=== PATIENT | male | born 1945 | race Caucasian/White ===

== ENCOUNTER → 2019-04-28 09:38 | Outpatient (BNVA) | payer MEDICARE, OTHER, SELFPAY | PROVIDERS: Family Provider Family Medicine; PCP Family Medicine; Visit Provider Urology | DX: N99.89 Other postprocedural complications and disorders of genitourinary system (principal); N13.8 Other obstructive and reflux uropathy; N40.1 Benign prostatic hyperplasia with lower urinary tract symptoms; N41.1 Chronic prostatitis | CPT/HCPCS: 81001 ==

== ENCOUNTER → 2019-05-23 09:42 | Outpatient (BNVA) | payer MEDICARE, OTHER, SELFPAY | PROVIDERS: Family Provider Family Medicine; PCP Family Medicine; Visit Provider Family Medicine | DX: R68.89 Other general symptoms and signs (principal); J10.1 Influenza due to other identified influenza virus with other respiratory manifestations | CPT/HCPCS: 87804 ==

== ENCOUNTER 2019-06-29 07:11 | Outpatient (CLI) | payer MEDICARE, OTHER, SELFPAY ==
--- NOTE | 2019-06-29 08:37 | NMCV_ITS ---
NM evgeny perf SPECT r/s* [id number] Jaskaran Brown Age: 73 Gender: M : 1945 Exam Date: 06/29/2019 08:44 Ordering Phys: Navid Beach MD Technologist: CHIKI Rowland Exam Location: [facility] Indications: SHORTNESS OF BREATH STRESS TEST Please see separate stress test report in [facility] for full findings IMAGE PROTOCOL Rest/Stress 1 Lexiscan Day Radiopharmaceutical Dose (mCi) Administration Site Administered by Rest: Tc-99m 10.4 IV CHIKI Broussard Sestamibi Stress:Tc-99m 32.4 IV CHIKI Broussard Sestamibi Rest: 29-Jun-2019 60 Discovery 630 Stress: 29-Jun-2019 30 Discovery 630 0.4mg Lexiscan. Supine position only as patient was unable to lay prone. SPECT RESULTS Technical Quality: Good Raw Data Analysis: Normal Image Corrections: No attenuation or motion correction applied Summed Stress Score: 34 Summed Rest Score: 34 Summed Difference Score: 0 PERFUSION FINDINGS A moderate to large area of severely decreased tracer uptake in the basal, mid and apical anterior, basal and mid anteroseptal, basal and mid inferoseptal and all the apical segments. No significant reversibility was noted in these regions. FUNCTIONAL RESULTS (calculated via Gated SPECT) Stress Image LV EF (%): 31 Stress EDV (mL):234 TID: 1.15 Stress ESV (mL):162 FUNCTIONAL FINDINGS: Segmental wall motion analysis revealed severe diffuse hypokinesia of the septum and LV apex. Mild diffuse hypokinesia of the inferior wall. IMPRESSIONS 1. Myocardial perfusion imaging revealing a large area of persistent decreased tracer uptake in the anterior wall, anteroseptal, inferoseptal and apical segments, suggestive of extensive myocardial scarring in the distribution of the left and descending artery with some involvement of the right coronary and circumflex artery. 2. Diminished ejection fraction of 31%. 3. Wall motion normalities as mentioned above. 4. Moderately dilated LV cavity with an end-systolic volume of 162 mL. 5. Slightly elevated transient ischemic dilatation index, may suggest endocardial ischemia. But the positive predictive value this finding is limited. Possibly no significant ischemia, based on the above findings. No similar previous studies are available for comparison Dr Cody Pierce MD FACC (Electronically Signed) Final Date: 29 June 2019 18:44 S
--- NOTE | 2019-06-29 08:37 | ECG_ITS ---
NAME OF STUDY: LEXISCAN SESTAMIBI STRESS TEST INDICATION: Chest Pain, LEXISCAN STRESS TEST ORDERING PHYSICIAN: Baylee CLINICAL INFORMATION: Chest pain previous anterior wall OR INTERPRETATION: 1. The patient was brought to the laboratory where Lexiscan was infused over 20 seconds. The resting blood pressure was 146/95. Maximum blood pressure was 147/84. The resting heart rate was 62 beats per minute. The maximum heart rate is 85 beats per minute. 2. The baseline electrocardiogram reveals sinus rhythm with a left bundle branch block 3. With Lexiscan infusion, there were no ST segment changes to suggest ischemia. 4. The patient experienced no symptoms or arrhythmias during the examination. CONCLUSION: 1. Unremarkable Lexiscan infusion. 2. Nuclear imaging to follow. Electronically Signed On 06-29-2019 19:30:24 CDT by Navid Beach M.D. [id number]
[2019-06-29 08:38] VITALS: BMI 32.8
[2019-06-29 09:25] VITALS: BP 141/87; PULSE 81
[2019-06-29] MEDS: regadenoson 0.4 Mg/5 ml Syringe IVP (09:25)
== END 2019-06-29 07:12 | disposition home or self-care (01) ==
LOC: CDL 07:13
PROVIDERS: Family Provider Family Medicine; PCP Family Medicine; Visit Provider Internal Medicine Cardiovascular Disease
DX: I38 Endocarditis, valve unspecified (principal); R06.02 Shortness of breath
CPT/HCPCS: 78452; 93017; A9500; J2785

== ENCOUNTER 2019-09-29 17:15 | Emergency (ER) | payer MEDICARE, OTHER, SELFPAY ==
[2019-09-29 17:26] VITALS: BP 140/81; PULSE 71; RESP 14; TEMP 36.2; O2SAT 96; BMI 29.9
--- NOTE | 2019-09-29 19:17 | W.ED.SKABFB ---
HPI - Skin/Abscess/Foreign Bdy General: Chief complaint: Skin/Abscess/Foreign Body Stated complaint: fish hook in arm Time Seen by Provider: 09/29/19 19:16 History of Present Illness: HPI narrative: Patient is a 74-year-old male comes to the ED with fishing hook in the left arm. Incident occurred today while patient was fishing. Patient says he needs to be updated on his tetanus shot. Associated symptoms: Deny chills, fever(s), nausea or vomiting Review of Systems Const: Denies: fever(s), chills or fatigue Eyes: Denies: change in vision or eye discomfort ENMT: Denies: throat pain, odynophagia, nasal discharge or nasal congestion Card: Denies: chest pain, palpitations, edema, swelling of feet/ankles, dyspnea on exertion or orthopnea Resp: Denies: dyspnea, productive cough or non-productive cough GI: Denies: abdominal pain, nausea, vomiting, diarrhea, constipation or hematochezia : Denies: flank pain, difficulty urinating, dysuria or hematuria Musc: Denies: neck pain, back pain or extremity swelling Skin/Breast: Reports: other (fish hook in forearm); Denies: rash or new lesions Neuro: Denies: headache(s), numbness in extremities or weakness in extremities PFSH ED PFSH: Medical History BPH with obstruction/lower urinary tract symptoms CAD (coronary artery disease) Chronic neck pain Chronic prostatitis History of [place] (myocardial infarction) Surgical History H/O knee surgery History of hemorrhoidectomy Status post appendectomy Status post coronary angioplasty Family History Father , at age 92-heart trouble No problems noted. Mother , AT AGE 88-[place]IM[place] No problems noted. Social History Smoking and tobacco status: never smoked Alcohol intake: current Alcohol intake frequency: 0-2 Drinks per Day Marital status: Current occupational status: retired Physical Exam Const: COMMON NORMALS: patient oriented x3 HENMT: COMMON NORMALS: normocephalic HEAD & SCALP: normocephalic MOUTH: Normal oral and palatal mucosa present THROAT: posterior oropharynx normal and uvula midline Neck/C-Spine: COMMON NORMALS: supple GENERAL: Yes normal visual inspection Resp: COMMON NORMALS: normal respiratory effort, No retractions, No use of accessory muscles and clear to auscultation bilaterally AUSCULTATION: clear to auscultation bilaterally Cardio: COMMON NORMALS: regular rate, regular rhythm, S1 normal heart sound present, S2 normal heart sound present, No gallops present (Cardio), No clicks present (Cardio), No murmurs present (Cardio) and Peripheral pulses 2+ throughout RATE: regular rate RHYTHM: regular rhythm HEART SOUNDS: S1 normal heart sound present and S2 normal heart sound present PERIPHERAL PULSES: Peripheral pulses 2+ throughout GI: COMMON NORMALS: Normal to inspection, nondistended, normoactive bowel sounds present, Soft to palpation, non-tender and no masses PALPATION: Yes Soft to palpation : COMMON NORMALS: Yes no CVA tenderness BLADDER/KIDNEY EXAM: Yes no CVA tenderness Back/Pelvis: COMMON NORMALS: no CVA tenderness Extremity: NARRATIVE EXTREMITY EXAM: [place] visualized in left forearm. Neuro: COMMON NORMALS: patient oriented x3 and moves all extremities Skin: TRAUMA: other (Visible fishhook in left forearm.) Procedures Foreign Body Removal Time Out Performed: yes Site: left and upper extremity (Forearm) Description of foreign body: fish hook Sedation/Analgesia: other (Area was cleaned with CHG swab. Local lidocaine 1% with epi) Technique: manual removal and removal with forceps Confirmed by:: direct visualization Complications: none Post-procedure exam: awake, alert Neurovascular: no change from pre-procedure (Area was cleaned with alcohol swab and Band-Aid applied.) Course Vital Signs: Vital signs: Vital Signs Temperature 97.1 F L 09/29/19 17:26 Pulse Rate 71 09/29/19 19:52 Respiratory Rate 16 09/29/19 19:52 Blood Pressure 140/81 09/29/19 17:26 Pulse Oximetry 96 09/29/19 19:52 MDM - Skin/Abscess/Foreign Bdy MDM Narrative: Medical decision making narrative: Patient 74-year-old male comes the ED with a visible fishhook in skin of left forearm. Local lidocaine with epi was injected to help manage pain. I then was able to remove the fishhook using pliers and forceps. Area was cleaned with alcohol swab and Band-Aid was placed. Patient was given an updated tetanus dose while here in the ED. He was discharged given a prescription for Keflex. He was told to follow-up with his PCP in 7 to 10 days for reevaluation. Patient understood and agreed with plan. Discharge Plan Discharge Patient Disposition: Home, Self-Care Clinical Impression: Fish hook in forearm Condition: Stable Prescriptions: New Keflex 500 mg capsule 500 mg PO Q12H 4 Days Qty: 8 RF: 0 No Action cefuroxime axetil 500 mg tablet 500 mg PO BID Qty: 60 RF: 3 carvedilol 3.125 mg tablet 3.125 mg PO BID RF: 0 aspirin [Adult Aspirin Regimen] 81 mg tablet,delayed release (DR/EC) 81 mg PO DAILY RF: 0 Hood Back and Body 500-32.5 mg tablet PO RF: 0 nitroglycerin [Nitrostat] 0.4 mg tablet, sublingual 0.4 mg SUBLINGUAL Q5M PRNRF: 0 Unisom (doxylamine) 25 mg tablet 25 mg PO DAILY RF: 0 clopidogrel 75 mg tablet 75 mg PO DAILY 90 Days Qty: 90 RF: 3 lansoprazole 30 mg capsule,delayed release(DR/EC) 30 mg PO DAILY Qty: 90 RF: 1 Discharge Orders: Discharge Order (Routine); Ordered 09/29/19 Ordered By: Efrain Carlisle Referrals: Renate Trevizo DO [Primary Care Provider] - Discharge Diet: Regular Discharge Activity: Resume usual activity Activity Restrictions/Additional Instructions: Schedule follow-up appointment with your PCP in 7 to 10 days for reevaluation. Take full course of antibiotics as prescribed. You can apply cold pack on forearm and take ibuprofen or Tylenol for pain. Watch for signs of infection such as redness, warmth and puslike drainage. If you notice any other signs of infection go to your PCP, urgent care or ED for reevaluation. Discharge Date/Time: 09/29/19 19:53 Coding Level of Care Code ED Chief Technician X Ray for [facility]ra Exam Comprehensive
[2019-09-29] MEDS: tetanus-dipt-pertussis 0.5 mL SDV IM (19:24)
[2019-09-29 19:52] VITALS: PULSE 71; RESP 16; O2SAT 96
== END 2019-09-29 19:53 | disposition home or self-care (01) ==
PROVIDERS: Emergency Provider Physician Assistant; PCP Family Medicine
DX: S51.842A Puncture wound with foreign body of left forearm, initial encounter (principal); W26.8XXA Contact with other sharp object(s), not elsewhere classified, initial encounter; I25.10 Atherosclerotic heart disease of native coronary artery without angina pectoris; I25.2 Old myocardial infarction; Z98.61 Coronary angioplasty status; Z23 Encounter for immunization
CPT/HCPCS: 12345; 90471; 90715; 99281; 99283; J2001

== ENCOUNTER → 2019-10-28 11:50 | Outpatient (BNVA) | payer MEDICARE, OTHER, SELFPAY | PROVIDERS: PCP Family Medicine; Visit Provider Nurse Practitioner Family | DX: N13.8 Other obstructive and reflux uropathy (principal); N40.1 Benign prostatic hyperplasia with lower urinary tract symptoms; N41.1 Chronic prostatitis | CPT/HCPCS: 80053; 81001 ==

== ENCOUNTER → 2019-11-21 09:38 | Outpatient (BNVA) | payer MEDICARE, OTHER, SELFPAY | PROVIDERS: PCP Family Medicine; Visit Provider Family Medicine | DX: I25.10 Atherosclerotic heart disease of native coronary artery without angina pectoris (principal); R10.32 Left lower quadrant pain | CPT/HCPCS: 80053; 80061; 82043; 85025 ==

== ENCOUNTER → 2019-11-22 16:42 | Outpatient (BNVA) | payer MEDICARE, OTHER, SELFPAY | PROVIDERS: PCP Family Medicine; Visit Provider Family Medicine | DX: I25.10 Atherosclerotic heart disease of native coronary artery without angina pectoris (principal); R10.32 Left lower quadrant pain; R73.01 Impaired fasting glucose; R73.09 Other abnormal glucose | CPT/HCPCS: 83036 ==

== ENCOUNTER 2019-11-29 12:52 | Outpatient (CLI) | payer MEDICARE, OTHER, SELFPAY ==
[2019-11-29] MEDS: iohexol 300 mg/mL 50 mL Btl PO (14:24)
--- NOTE | 2019-11-29 14:30 | CT_ITS ---
WS: [id number] CT ABDOMEN AND PELVIS WITH CONTRAST HISTORY: LLQ pain TECHNIQUE: Imaging performed of the abdomen and pelvis with IV contrast. Single phase imaging of the abdomen. Coronal and sagittal reformats are submitted. All CT scans at [facility] use at least one of these dose optimization techniques: automated exposure control; mA and/or kV adjustment per patient size (includes targeted exams where dose is matched to clinical indication); or iterativ e reconstruction. IV CONTRAST: Omnipaque 300; 95 mL IV. Oral contrast: Yes. DLP: 1263.25 mGycm COMPARISON: None available. Lower thorax: 3 mm nodule at the RIGHT lung base. Heart is normal size. No hiatal hernia. Liver/biliary system: Normal size with no intrahepatic dilatation. Gallbladder: Normal. No gallstones or wall thickening. No pericholecystic fluid. Pancreas: Normal. Spleen: Normal. Adrenal glands: Normal. Right kidney: Normal size kidney. Exophytic cyst measures 3.4 cm from the interpolar kidney. Smaller cyst from the lower pole. No obstruction or solid mass. Left kidney: Multiple cysts. The largest measures 2.7 cm from the lower pole. No solid mass or obstru ction. Aorta: Mild atherosclerosis with no aneurysm. Lymphadenopathy: None. Free fluid: None. GI tract: Prior appendectomy. There is moderate fecal retention throughout nearly the entire colon. N umerous diverticula beginning in the descending and sigmoid colon. Mild pericolonic inflammation begi nning in the distal descending and sigmoid colon consistent with acute diverticulitis. There are nume alanna surrounding diverticula. There is also additional wall thickening through the sigmoid from prior chronic episodes of diverticulosis. Abdominal wall: Small fat-containing umbilical hernia. Pelvis: Inguinal canals are patent bilaterally and contain fat only. Bones: No osteoblastic or osteolytic bone disease. CT/CT abdomen pelvis w con* [id number] IMPRESSION: 1. Mild acute diverticulosis involving the distal descending and sigmoid colon over a short segment. No abscess. 2. Numerous diverticula in the sigmoid region. 3. Bilateral renal cysts. 4. Prior appendectomy. 5. Moderate constipation.
== END 2019-11-29 12:53 | disposition home or self-care (01) ==
LOC: RADWPI 12:57
PROVIDERS: PCP Family Medicine; Visit Provider Family Medicine
DX: R10.32 Left lower quadrant pain (principal); K57.30 Diverticulosis of large intestine without perforation or abscess without bleeding; N28.1 Cyst of kidney, acquired; K59.00 Constipation, unspecified
CPT/HCPCS: 74177; Q9967

== ENCOUNTER 2019-12-24 11:01 | Emergency (ER) | payer MEDICARE, OTHER, SELFPAY ==
[2019-12-24 11:22] VITALS: BP 137/73; PULSE 66; RESP 18; TEMP 37.1; O2SAT 98; BMI 29.3
--- NOTE | 2019-12-24 11:43 | ECG_ITS ---
[facility] Test Date: 2019-12-24 Pat Name: Jaskaran Brown Department: Room: Gender: Male Entry Tech: : 1945 Requested By: Estella Marie I Order Number: [id number] Lauren MD: Leandra Claire M.D. Measurements Intervals [place] Rate: 55 P: 25 MN: 221 QRS: -15 QRSD: 152 T: 148 QT: 471 QTc: 452 Interpretive Statements SINUS BRADYCARDIA WITH FIRST DEGREE AV BLOCK LEFT BUNDLE BRANCH BLOCK [120+ ms QRS DURATION, 80+ ms Q/S IN V1/V2, 85+ ms R IN I/aVL/V5/V6] Compared to ECG 05/10/2016 10:31:19 Left bundle-branch block now present Myocardial infarct finding no longer present Electronically Signed On 12-24-2019 13:12:14 CDT by Leandra Claire M.D. [id number] f
--- NOTE | 2019-12-24 11:43 | XRR_ITS ---
PROCEDURE INFORMATION: Exam: XR Chest, 1 View Exam date and time: 12/24/2019 12:12 PM Age: 74 years old Clinical indication: Chest pain TECHNIQUE: Imaging protocol: XR of the chest Views: 1 view. COMPARISON: CR Chest 2 views* [id number] 05/09/2016 11:38 AM FINDINGS: Lungs: Unremarkable. No consolidation. Pleural space: Unremarkable. No pleural effusion. No pneumothorax. Heart/Mediastinum: Unremarkable. No cardiomegaly. Bones/joints: No acute findings. XR/XR chest 1V portable [id number] IMPRESSION: No acute findings.
--- NOTE | 2019-12-24 11:44 | W.ED.CHESTPA ---
HPI - Chest Pain General: Chief Complaint: Chest Pain Stated Complaint: CP/BOTH ARM PAIN Time Seen by Provider: 12/24/19 11:29 Source: patient Mode of arrival: ambulatory History of Present Illness: MD complaint: chest pain Pertinent past history: coronary artery disease and prior HI Onset (ago): hour(s) (22) Timing of current episode: constant Prior episodes: Yes Onset: during rest Pain location: left chest Pain radiation: right arm and left arm Severity: moderate Quality: dull Relieving factors: nothing Exacerbating factors: nothing Associated symptoms: Reports other (dizziness); Deny abdominal pain, diaphoresis, dyspnea, fever(s), leg edema, nausea, palpitations, sense of impending doom, syncope or vomiting Review of Systems General: Reports: 10 or more systems reviewed and unremarkable except in HPI and below Const: Denies: fever(s) or diaphoresis Eyes: Denies: change in vision or blurry vision ENMT: Denies: throat pain, enlarged tonsils, odynophagia, hoarseness, mouth pain or swelling of lips/tongue Card: Denies: palpitations or syncope Resp: Denies: dyspnea GI: Denies: abdominal pain, nausea or vomiting : Denies: flank pain, dysuria, urinary frequency, urinary urgency or urinary hesitancy Musc: Denies: neck pain, back pain or extremity swelling Skin/Breast: Denies: rash, pruritus or erythema Neuro: Denies: headache(s), numbness in extremities or weakness in extremities Endo: Denies: polyuria, polydipsia or tired all the time PFSH ED PFSH: Medical History BPH with obstruction/lower urinary tract symptoms CAD (coronary artery disease) Chronic neck pain Chronic prostatitis History of [place] (myocardial infarction) Surgical History H/O circumcision H/O colonoscopy 5 yrs ago H/O knee surgery History of hemorrhoidectomy Status post appendectomy Status post coronary angioplasty Family History Father , at age 92-heart trouble No problems noted. Mother , AT AGE 88-[place]IM[place] No problems noted. Other CAD (coronary artery disease) Cancer Diabetes Hypertension Denies family history of Anesthesia complication Bleeding disorder Social History Smoking and tobacco status: never smoked Alcohol intake: never Household members: spouse Marital status: Current occupational status: retired History of recent travel: No Physical Exam Const: COMMON NORMALS: no acute distress, average body habitus, patient oriented x3, no limitations, healthy appearing, alert and well nourished HENMT: COMMON NORMALS: normocephalic, atraumatic and moist oral mucous membranes HEAD & SCALP: normocephalic and atraumatic Neck/C-Spine: COMMON NORMALS: no meningeal signs and no JVD Chest: COMMONS NORMALS: normal inspection of the chest and normal palpation of entire chest wall Resp: COMMON NORMALS: normal respiratory effort, No retractions, No use of accessory muscles, clear to auscultation bilaterally and percussion normal AUSCULTATION: clear to auscultation bilaterally PERCUSSION: percussion normal Cardio: COMMON NORMALS: no JVD, regular rate, regular rhythm, S1 normal heart sound present, S2 normal heart sound present, No gallops present (Cardio), No clicks present (Cardio), No murmurs present (Cardio), No rub (Cardio) and Peripheral pulses 2+ throughout RATE: regular rate RHYTHM: regular rhythm HEART SOUNDS: S1 normal heart sound present and S2 normal heart sound present PERIPHERAL PULSES: Peripheral pulses 2+ throughout GI: COMMON NORMALS: Normal to inspection, nondistended, normoactive bowel sounds present, Soft to palpation, non-tender, No hepatosplenomegaly present, no masses and no bruits PALPATION: Yes Soft to palpation and Yes No hepatosplenomegaly present Extremity: COMMON NORMALS: normal to inspection, full ROM, capillary refill normal, no calf tenderness and no pedal edema Neuro: COMMON NORMALS: patient oriented x3 SENSORIUM/ORIENTATION: Yes alert MENINGEAL SIGNS: Yes no meningeal signs Skin: COMMON NORMALS: no rashes or lesions noted, no wounds, turgor normal, no jaundice, no petechiae and no mottling GENERAL SKIN EXAM: no rashes or lesions noted and turgor normal Course Reevaluation(s): Reevaluation #1: Discussed his lab and imaging findings with him. Negative for acute findings. We will discharge him home. Troponin negative, and since his symptoms have been on for almost 24 hours it is unlikely to be ACS. He voiced understanding and is in agreement with the plan. Time: 13:56 Vital Signs: Vital signs: Vital Signs Temperature 98.9 F 12/24/19 14:08 Pulse Rate 56 L 12/24/19 14:08 Respiratory Rate 18 12/24/19 14:08 Blood Pressure 138/77 12/24/19 14:08 Pulse Oximetry 94 12/24/19 14:08 MDM - Chest Pain MDM Narrative: Medical decision making narrative: Patient with chest pain that is unlikely to be ACS. Troponin negative. We will discharge him to follow-up with his primary care provider Medical Records: Attestation: I reviewed the patient's medical records. Lab Data: Attestation: I reviewed the patient's lab results. Labs: Lab Results 12/24/19 12/24/19 12/24/19 Range/Units 11:54 11:54 11:54 WBC 5.2 (4.0-10.0) 10^3/ uL RBC 4.95 (4.1-5.3) 10^6/u L Hgb 15.1 (11.7-16.6) g/dL Hct 46.2 (42.0-52.0) % MCV 93.3 (80-94) fL MCH 30.5 (28.0-34.0) pg MCHC 32.7 (30.0-36.0) g/dL RDW 13.1 (12.1-15.1) % Plt Count 152 (130-400) 10^3/c mm MPV 11.2 H (7.4-10.4) fL Neut % (Auto) 42.4 % Lymph % (Auto) 44.4 % [place] % (Auto) 8.7 % Eos % (Auto) 3.1 % Baso % (Auto) 0.8 % Neut # (Auto) 2.19 (1.8-7.7) 10^3/u L Lymph # (Auto) 2.3 (0.8-4.8) 10^3/u L [place] # (Auto) 0.5 (0.2-0.9) 10^3/u L Eos # (Auto) 0.2 (0.0-0.8) 10^3/u L Baso # (Auto) 0.0 (0.0-0.1) 10^3/u L Nucleated RBC % (a uto) 0 % Nucleated RBCs # 0.0 /100WBC Sodium 138 (136-145) mmol/L Potassium 4.2 (3.5-5.1) mmol/L Chloride 104 (98-107) mmol/L Carbon Dioxide 24 (22-29) mmol/L Anion Gap 14.2 (5-19) BUN 17 (8-23) mg/dL Creatinine 1.0 (0.7-1.2) mg/dL GFR Calculation Not Reportable Glucose 141 H (65-115) mg/dL Calculated Osmolal ity 285 (285-295) mOsm/k g Calcium 8.4 L (8.5-10.5) mg/dL Total Bilirubin 0.3 (0.15-1.2) mg/dL AST 12 (0-40) U/L ALT 19 (0-41) U/L Alkaline Phosphata se 75 (40-130) IU/L Creatine Kinase 63 (39-308) U/L Troponin T Baselin e 13 (0-15) ng/L NT-Pro-B Natriuret Pep 401 H (0-125) pg/mL Total Protein 7.0 (6.6-8.7) g/dL Albumin 3.9 (3.5-5.2) g/dL Globulin 3.1 (1.3-4.6) g/dL Lipase 13 (13-60) U/L Imaging Data^: CXR: Radiologist's impression: [address] [address] XRay Report Signed Patient: Jaskaran Brown #: [id number] : 6Acct#:[id number] Age/Sex: 74 / MADM Date: 12/24/19 Loc: ERRoom/Bed: Attending Dr: Ordering Provider/Ordering MD: Estella Marie MD, [facility] Date of Service: 12/24/19 Procedure(s): XR chest 1V portable [id number] Accession Number(s): [id number] Report Number: [id number] PROCEDURE INFORMATION: Exam: XR Chest, 1 View Exam date and time: 12/24/2019 12:12 PM Age: 74 years old Clinical indication: Chest pain TECHNIQUE: Imaging protocol: XR of the chest Views: 1 view. COMPARISON: CR Chest 2 views* [id number] 05/09/2016 11:38 AM FINDINGS: Lungs: Unremarkable. No consolidation. Pleural space: Unremarkable. No pleural effusion. No pneumothorax. Heart/Mediastinum: Unremarkable. No cardiomegaly. Bones/joints: No acute findings. XR/XR chest 1V portable [id number] IMPRESSION: No acute findings. Dictated By:Geraldo Johnson MD Signed By:Geraldo Johnson MDSigned Date/Time:12/24/19 125 DD/ 125 EKG Data^: EKG 1: Attestation: I personally reviewed and interpreted this EKG as follows: EKG interpretation date: 12/24/19 EKG interpretation time: 11:33 Prior EKG tracings: not available for review Interpretation: Sinus bradycardia with first-degree heart block. Heart rate 55 bpm. Left bundle branch block. Discharge Plan Discharge Patient Disposition: Home Clinical Impression: Atypical chest pain Condition: Stable Prescriptions: Continued carvedilol 3.125 mg tablet 3.125 mg PO BID RF: 0 aspirin [Adult Aspirin Regimen] 81 mg tablet,delayed release (DR/EC) 81 mg PO DAILY RF: 0 nitroglycerin [Nitrostat] 0.4 mg tablet, sublingual 0.4 mg SUBLINGUAL Q5M PRN (Reason: Chest Pain) RF: 0 Unisom (doxylamine) 25 mg tablet 25 mg PO DAILY RF: 0 clopidogrel 75 mg tablet 75 mg PO DAILY 90 Days Qty: 90 RF: 3 lansoprazole 30 mg capsule,delayed release(DR/EC) 30 mg PO DAILY Qty: 90 RF: 1 metformin 500 mg tablet extended release 24 hr 500 mg PO DAILY Qty: 30 RF: 1 Discharge Orders: Discharge Order (Routine); Ordered 12/24/19 Ordered By: Estella Marie Referrals: Renate Trevizo DO [Primary Care Provider] - 1-3 days Patient Instructions: Chest Pain (ED) Activity Restrictions/Additional Instructions: Return for any new or worsening symptoms. Follow-up with your primary care provider within 3 days. Discharge Date/Time: 12/24/19 14:10 Coding Level of Care Code ED [employer] Exam Comprehensive
[2019-12-24] MEDS: nitroglycerin 1 gm/inch oint Pkt 1 INCH TOPICAL (11:48)
[2019-12-24 11:58] VITALS: BP 124/81; PULSE 57; RESP 18; O2SAT 97
[2019-12-24 12:02] VITALS: BP 124/81; PULSE 54; RESP 18; O2SAT 96
[2019-12-24 12:03] LABS: Basophils % 0.8 %; Eosinophils # 0.2 10^3/uL (0.0-0.8); Eosinophils % 3.1 %; Hematocrit 46.2 % (42.0-52.0); Hemoglobin 15.1 g/dL (11.7-16.6); Lymphocytes # 2.3 10^3/uL (0.8-4.8); Lymphocytes % 44.4 %; Mean Corpuscular HGB Conc 32.7 g/dL (30.0-36.0); Mean Corpuscular Hemoglobin 30.5 pg (28.0-34.0); Mean Corpuscular Volume 93.3 fL (80-94); Mean Platelet Volume 11.2 fL (7.4-10.4); Monocytes # 0.5 10^3/uL (0.2-0.9); Monocytes % 8.7 %; Neutrophils # 2.19 10^3/uL (1.8-7.7); Neutrophils % 42.4 %; Nucleated Red Blood Cells % 0 %; Platelet Count 152 10^3/cmm (130-400); Red Blood Count 4.95 10^6/uL (4.1-5.3); Red Cell Distribution Width 13.1 % (12.1-15.1); White Blood Count 5.2 10^3/uL (4.0-10.0)
[2019-12-24 12:20] LABS: Troponin(5th) Baseline 13 ng/L (0-15)
[2019-12-24 12:27] LABS: Alanine Aminotransferase 19 U/L (0-41); Albumin Level 3.9 g/dL (3.5-5.2); Alkaline Phosphatase 75 IU/L (40-130); Anion Gap 14.2 (5-19); Aspartate Amino Transferase 12 U/L (0-40); Blood Urea Nitrogen 17 mg/dL (8-23); Calcium 8.4 mg/dL (8.5-10.5); Carbon Dioxide 24 mmol/L (22-29); Chloride 104 mmol/L (98-107); Creatine Phosphokinase 63 U/L (39-308); Globulin 3.1 g/dL (1.3-4.6); Glucose 141 mg/dL (65-115); Lipase 13 U/L (13-60); NT Pro B Type Natriuretic Pept 401 pg/mL (0-125); Osmolality Calculated 285 mOsm/kg (285-295); Potassium 4.2 mmol/L (3.5-5.1); Sodium 138 mmol/L (136-145); Total Bilirubin 0.3 mg/dL (0.15-1.2)
[2019-12-24 13:35] VITALS: BP 115/72; PULSE 56; RESP 18; O2SAT 94
[2019-12-24 14:08] VITALS: BP 138/77; PULSE 56; RESP 18; TEMP 37.2; O2SAT 94
== END 2019-12-24 14:10 | disposition home or self-care (01) ==
PROVIDERS: Emergency Provider Family Medicine; PCP Family Medicine
DX: R07.89 Other chest pain (principal); Z79.02 Long term (current) use of antithrombotics/antiplatelets; Z79.82 Long term (current) use of aspirin; I25.10 Atherosclerotic heart disease of native coronary artery without angina pectoris; I25.2 Old myocardial infarction; Z98.61 Coronary angioplasty status
CPT/HCPCS: 12345; 71045; 80053; 82550; 83690; 83880; 84484; 85025; 93005; 99283; 99284

== ENCOUNTER → 2020-01-13 13:40 | Outpatient (BNVA) | payer MEDICARE, OTHER, SELFPAY | PROVIDERS: PCP Family Medicine; Visit Provider Surgery | DX: Z20.828 Contact with and (suspected) exposure to other viral communicable diseases (principal) | CPT/HCPCS: 87635 ==

== ENCOUNTER 2020-01-17 06:28 | Day surgery (SDC) | payer MEDICARE, OTHER, SELFPAY ==
[2020-01-13 13:41] VITALS: BMI 29.9
[2020-01-17 06:38] VITALS: BP 133/88; PULSE 75; RESP 18; TEMP 36.1; O2SAT 97
--- NOTE | 2020-01-17 06:47 | P.ANESASSM_ITS ---
Pre-Anesthetic Assessment Pre-Anesthetic Assessment: Height/Weight: Height 1.91 m Weight 108.862 kg Temp Pulse Resp BP Pulse Ox 97 F L 75 18 133/88 97 01/17/20 06:38 01/17/20 06:38 01/17/20 06:38 01/17/20 06:38 01/17/20 06:38 Preop Diagnosis: diverticulitis Proposed Procedure: Operation Date: 01/17/20 07:30 Proposed Procedures p Colonoscopy 07696 R10.32(Not Applicable) - Gilbert Bueno MD Was Beta Nory taken within 24 hours: Yes (last night) Last intake: Intake Last Liquid Date 01/16/20 Last Liquid Time 22:00 Last Solid Date 01/15/20 Last Solid Time 18:00 Social: Social History: No alcohol and No tobacco Exam: Pre-Anes Outpt Exam: alert, oriented x 3, clear to auscultation bilaterally and regular rate & rhythm Airway: Submandibular: WNL Cervical ROM: WNL MP: 1 Dentition: Partials History/ROS: No significant history except as noted Pulmonary: Pulmonary: None reported CV/HEM: CV/HEM: CAD, HTN and [place] Comments: denies and SOB/CP or changes. 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 : : None reported Hepatic: Hepatic: None reported GI: GI: GERD Metabolic: Metabolic: DM, Hyperlipidemia and Morbid obesity Musc/skel: Musc/skel: None reported Neuropsych: Neuropsych: None reported Anesthetic Plan: ASA status: 3 Anesthesia: MAC PFSH Anesthesia PFSH: Medical History (Updated 01/01/20 @ 00:00 by ) BPH with obstruction/lower urinary tract symptoms CAD (coronary artery disease) Chronic neck pain Chronic prostatitis History of [place] (myocardial infarction) Surgical History H/O circumcision H/O colonoscopy 5 yrs ago H/O knee surgery History of hemorrhoidectomy Status post appendectomy Status post coronary angioplasty Family History Father , at age 92-heart trouble No problems noted. Mother , AT AGE 88-[place] No problems noted. Other CAD (coronary artery disease) Cancer Diabetes Hypertension Denies family history of Anesthesia complication Bleeding disorder Social History Smoking and tobacco status: never smoked Alcohol intake: never Household members: spouse Marital status: Current occupational status: retired History of recent travel: No Data Anesthesia Cardiac Studies: No Data to Display
[2020-01-17 06:58] LABS: Glucose Point of Care 124 mg/dL (70-110)
[2020-01-17] MEDS: sodium chloride 0.9% 1,000 ML 30 ML IV (06:58)
--- NOTE | 2020-01-17 06:59 | W.PM.OPSUD ---
Surgery/Procedure H&P Update DATE OF PROCEDURE: January 17, 2020 DATE H&P PERFORMED: 12/23/19 H&P UPDATE INFORMATION: I have reviewed H&P completed within last 30 days, I have examined patient prior to procedure and No changes to prior documentation PREOP DIAGNOSIS: diverticulitis PLANNED PROCEDURE: Operation Date: 01/17/20 07:30 Proposed Procedures p Colonoscopy 55759 R10.32(Not Applicable) - Gilbert Bueno MD
[2020-01-17 07:32] VITALS: BP 114/75; PULSE 67; RESP 16; TEMP 36.4; O2SAT 95
[2020-01-17 07:50] VITALS: BP 103/71; PULSE 66; RESP 18; O2SAT 95
--- NOTE | 2020-01-17 07:58 | ANE.PACU2 ---
Inpatient post-anesthesia follow up: Airway intact: Yes Vital signs: Temperature 97.6 F Pulse Rate 67 Respiratory Rate 16 Blood Pressure 114/75 Pulse Oximetry 95 Oxygen Delivery Me thod Nasal Cannula Oxygen Flow Rate 2 Fraction of Inspir ed Oxygen Hydration adequate: Yes Nausea and vomiting: No Mental status: Baseline
== END 2020-01-17 08:05 | disposition home or self-care (01) ==
PROVIDERS: PCP Family Medicine; Visit Provider Surgery
PROC: 0DJD8ZZ Inspection of Lower Intestinal Tract, Via Natural or Artificial Opening Endoscopic (ICD-10-PCS; CPT 45378; principal; 2020-01-17 07:30)
DX: R10.32 Left lower quadrant pain (principal); D12.4 Benign neoplasm of descending colon; K57.30 Diverticulosis of large intestine without perforation or abscess without bleeding; K57.32 Diverticulitis of large intestine without perforation or abscess without bleeding; I25.10 Atherosclerotic heart disease of native coronary artery without angina pectoris; I10 Essential (primary) hypertension; I25.2 Old myocardial infarction; K21.9 Gastro-esophageal reflux disease without esophagitis; E11.9 Type 2 diabetes mellitus without complications; E78.5 Hyperlipidemia, unspecified; E66.01 Morbid (severe) obesity due to excess calories; Z68.30 Body mass index [BMI] 30.0-30.9, adult; N40.1 Benign prostatic hyperplasia with lower urinary tract symptoms; N13.8 Other obstructive and reflux uropathy; Z79.82 Long term (current) use of aspirin; Z79.84 Long term (current) use of oral hypoglycemic drugs
CPT/HCPCS: 12345; 36416; 45380; 82962; 88305; J2704; J7030

== ENCOUNTER → 2020-10-09 15:54 | Outpatient (BNVA) | payer MEDICARE, OTHER, SELFPAY | PROVIDERS: PCP Family Medicine; Visit Provider Family Medicine | DX: E11.9 Type 2 diabetes mellitus without complications (principal); Z13.6 Encounter for screening for cardiovascular disorders | CPT/HCPCS: 80053; 83036 ==

== ENCOUNTER → 2021-04-29 13:33 | Outpatient (BNVA) | payer MEDICARE, OTHER, SELFPAY | PROVIDERS: PCP Family Medicine; Visit Provider Urology | DX: N40.1 Benign prostatic hyperplasia with lower urinary tract symptoms (principal); N13.8 Other obstructive and reflux uropathy; Z12.5 Encounter for screening for malignant neoplasm of prostate; N41.1 Chronic prostatitis | CPT/HCPCS: 81003; G0103 ==

== ENCOUNTER → 2021-07-01 13:42 | Outpatient (BNVA) | payer MEDICARE, OTHER, SELFPAY | PROVIDERS: PCP Family Medicine; Visit Provider Internal Medicine | DX: I25.10 Atherosclerotic heart disease of native coronary artery without angina pectoris (principal); N41.1 Chronic prostatitis; R06.02 Shortness of breath; R07.9 Chest pain, unspecified; Z98.61 Coronary angioplasty status; I25.2 Old myocardial infarction | CPT/HCPCS: 99214 ==

== ENCOUNTER 2021-07-23 09:41 | Outpatient (CLI) | payer MEDICARE, OTHER, SELFPAY ==
[2021-07-23 09:58] VITALS: BMI 30.8
--- NOTE | 2021-07-23 09:59 | ECG_ITS ---
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 Interpretive Statements NAME OF STUDY: LEXISCAN SESTAMIBI STRESS TEST INDICATION: [Chest Pain, ] Procedure: At the baseline, the blood pressure was 146/91 mmHg with a heart rate of 65 bpm. The electrocardiogram showed normal sinus rhythm, left bundle branch block. The Lexiscan was infused over a period of 20 seconds. A total of 0.4 mg of Lexiscan was infused. The stress phase was continued for a total of 5 minutes. Heart rate was at the end of stress phase was 79 bpm and a blood pressure of 130/87mmHg. The EKG at the peak infusion revealed since normal sinus rhythm with no significant ST-T wave changes. Sestamibi was injected 20 seconds after the Lexiscan infusion. Blood pressure at the end of recovery phase was 132/87 mmHg with a heart rate of 76 bpm. Conclusion: 1. Normal EKG response to Lexiscan infusion 2. No Lexiscan induced chest pain or cardiac arrhythmia. 3. Normal blood pressure and heart rate response. 4. Sestamibi/sestamibi perfusion scan pending; see separate report. Electronically Signed On 07-27-2021 13:23:43 CDT by Kwan Shah M.D. [email or web address] TherapeuticsCafeMombr[facility].[place] [facility]/store/OM/[id number]/[id number]
--- NOTE | 2021-07-23 09:59 | NMCV_ITS ---
NM evgeny perf SPECT r/s* [id number] Jaskaran Brown Age: 75 Gender: M : 1945 Exam Date: 07/23/2021 10:49 Ordering Phys: Kwan Shah M.D ([email or web address]) Technologist: CHIKI Rowland Exam Location: [facility] Indications: SHORTNESS OF BREATH STRESS TEST Please see separate stress test report in [facility] for full findings IMAGE PROTOCOL Rest/Stress 1 Lexiscan Day Radiopharmaceutical Dose (mCi) Administration Site Administered by Rest: Tc-99m 10.8 IV CHIKI Broussard Sestamibi Stress:Tc-99m 32.4 IV CHIKI Rowland Sestamitanya Rest: 23-Jul-2021 60 Discovery 630 Stress: 23-Jul-2021 30 Discovery 630 0.4mg Lexiscan. Supine position only as patient was unable to lay prone. SPECT RESULTS Technical Quality: Excellent Raw Data Analysis: Normal Image Corrections: No attenuation or motion correction applied Summed Stress Score: 35 Summed Rest Score: 31 Summed Difference Score: 5 PERFUSION FINDINGS There is a large sized mostly fixed perfusion defect in the apical, anterior and anteroseptal gil with small area of reversibilty in the anterior wall. This is consistent with large sized infarct in these territories with small to medium sized area of teresa-infarct ischemia FUNCTIONAL RESULTS (calculated via Gated SPECT) Stress Image LV EF (%): 25 Stress EDV (mL):253 TID: 1.26 Stress ESV (mL):190 FUNCTIONAL FINDINGS: LV systolic function is severely reduced with EF of 25%. Elevated TID ratio of 1.26 IMPRESSIONS 1. Abnormal mycaordial perfusion imaging with large sized infarct noted in the apical, anterior and anteroseptal gil with small to medium sized area of teresa-infarct ischemia 2. LV systolic function is severely reduced. TID ratio is elevated and is 1.26. This could represent subendocardial ischemia or multivessel coronary artery disease Kwna Shah MD (Electronically Signed) Final Date: 31 July 2021 10:35 S
[2021-07-23] MEDS: regadenoson 0.4 Mg/5 ml Syringe IVP (11:18)
[2021-07-23 11:28] VITALS: BP 132/86; PULSE 76
== END 2021-07-23 09:42 | disposition home or self-care (01) ==
LOC: RAD 09:43 → CDL 09:48
PROVIDERS: PCP Family Medicine; Visit Provider Internal Medicine
DX: R07.9 Chest pain, unspecified (principal); R06.02 Shortness of breath
CPT/HCPCS: 78452; 93017; A9500; J2785

== ENCOUNTER → 2021-12-30 14:02 | Outpatient (BNVA) | payer MEDICARE, OTHER, SELFPAY | PROVIDERS: PCP Family Medicine; Visit Provider Internal Medicine | DX: I25.10 Atherosclerotic heart disease of native coronary artery without angina pectoris (principal); Z98.61 Coronary angioplasty status; I25.2 Old myocardial infarction | CPT/HCPCS: 99214 ==

== ENCOUNTER 2022-01-11 09:57 | Emergency (ER) | payer MEDICARE, OTHER, SELFPAY ==
[2022-01-11 10:00] VITALS: BP 165/86; PULSE 77; RESP 16; TEMP 37.1; O2SAT 96; BMI 24.4
--- NOTE | 2022-01-11 10:05 | W.ED.COVID ---
HPI - COVID General: Chief Complaint: COVID symptoms Stated Complaint: covid postive Time Seen by Provider: 01/11/22 09:58 History of Present Illness: 76-year-old male presents emergency room with tested positive for COVID this morning. He was exposed 4 days ago symptoms for the last 3 days. He has minimal symptoms slight cough mild headache and myalgias very mild loose stools no anosmia. He does have a history of diabetes mellitus and heart disease. Tested positive with a home antigen test this morning. MD complaint: known COVID positive Prior covid testing: yes, results known COVID 19 common symptoms: positive fever(s), chills, cough, non-productive cough, dyspnea, fatigue, body aches, headache(s) and nasal congestion; negative productive cough, throat pain, nausea, vomiting or diarrhea COVID 19 other sytmptoms: negative chest pain Onset (ago): day(s) (3) Severity: mild Pertinent comorbid conditions: diabetes and heart disease Treatment prior to arrival: none COVID Results: Nasal/Oral Coronavirus 2019 PCR Negative 01/13/20 13:40 Review of Systems Const: Reports: fever(s), chills, body aches, fatigue and malaise ENMT: Reports: nasal congestion; Denies: throat pain Card: Denies: chest pain, palpitations, irregular heart rhythm, edema, dyspnea on exertion or orthopnea Resp: Reports: dyspnea and non-productive cough; Denies: productive cough or wheezing GI: Denies: abdominal pain, nausea, vomiting, hematemesis, coffee ground emesis, diarrhea, constipation, bloating, hematochezia or melena : Denies: flank pain, dysuria, urinary frequency or urinary urgency Skin/Breast: Denies: rash or pruritus Neuro: Reports: headache(s) PFSH ED PFSH: Medical History BPH with obstruction/lower urinary tract symptoms CAD (coronary artery disease) Chronic neck pain Chronic prostatitis Diverticulitis of sigmoid colon History of colon polyps History of NE (myocardial infarction) Type 2 diabetes mellitus, without long-term current use of insulin Surgical History H/O circumcision H/O colonoscopy (01/17/20) descending colon polyp and sigmoid diverticulitis H/O knee surgery History of hemorrhoidectomy Status post appendectomy Status post coronary angioplasty Family History Father , at age 92-heart trouble No problems noted. Mother , AT AGE 88-ALZHEIMERS No problems noted. Other CAD (coronary artery disease) Cancer Diabetes Hypertension Denies family history of Anesthesia complication Bleeding disorder Social History Smoking and tobacco status: never smoked Alcohol intake: never Household members: spouse Marital status: Current occupational status: retired History of recent travel: No Physical Exam Const: COMMON NORMALS: no acute distress GENERAL APPEARANCE: cooperative and comfortable ORIENTATION/CONSCIOUSNESS: Yes awake, Yes oriented to person, Yes oriented to place and Yes oriented to time HENMT: COMMON NORMALS: normocephalic and atraumatic HEAD & SCALP: normocephalic and atraumatic Eye: COMMON NORMALS: Equal, round and reactive pupils present, EOMs intact bilaterally, conjunctivae normal and no scleral icterus CONJUNCTIVA: Yes conjunctivae normal PUPIL: Yes Equal, round and reactive pupils present Neck/C-Spine: COMMON NORMALS: full ROM, no lymphadenopathy, supple and no JVD Lymph: LYMPHATIC: no lymphadenopathy noted and no lymphedema noted Resp: COMMON NORMALS: normal respiratory effort, No retractions, No use of accessory muscles and clear to auscultation bilaterally AUSCULTATION: clear to auscultation bilaterally Cardio: COMMON NORMALS: no JVD, regular rate, regular rhythm and No murmurs present (Cardio) RATE: regular rate RHYTHM: regular rhythm Extremity: COMMON NORMALS: normal to inspection, capillary refill normal, no clubbing, cyanosis or edema, no calf tenderness and no pedal edema Neuro: SENSORIUM/ORIENTATION: Yes oriented to person, Yes oriented to place and Yes oriented to time Skin: COMMON NORMALS: no rashes or lesions noted GENERAL SKIN EXAM: no rashes or lesions noted Course Vital Signs: Vital signs: Vital Signs Temperature 98.8 F 01/11/22 10:00 Pulse Rate 77 01/11/22 10:00 Respiratory Rate 16 01/11/22 10:00 Blood Pressure 165/86 01/11/22 10:00 Pulse Oximetry 96 01/11/22 10:00 Oxygen Delivery Me thod 01/11/22 10:00 [facility] - COVID Medical Decision Making Symptomatic cares. Patient was to start Paxlovid. He is within the timeframe. Prescription given monitor breathing if has worsening shortness of breath should be reevaluated. Medical Records I reviewed the patient's medical records. Lab Data I reviewed the patient's lab results. Nasal/Oral Coronavirus 2019 PCR Negative 01/13/20 13:40 Discharge Plan Discharge Patient Disposition: Home Clinical Impression: COVID-19, Type 2 diabetes mellitus, without long-term current use of insulin Condition: Stable Prescriptions: New Paxlovid (EUA) 150 mg x 2- 100 mg tablet See Rx Instructions .ROUTE .COMPLEX Qty: 30 0RF Rx Instructions: orally per package directions No Action levofloxacin 500 mg tablet 500 mg PO DAILY PRN aspirin [Adult Aspirin Regimen] 81 mg tablet,delayed release (DR/EC) 81 mg PO DAILY nitroglycerin [Nitrostat] 0.4 mg tablet, sublingual 0.4 mg SUBLINGUAL Q5M PRN (Reason: Chest Pain) Unisom (doxylamine) 25 mg tablet 25 mg PO DAILY clopidogrel 75 mg tablet 75 mg PO DAILY Qty: 90 3RF carvedilol 3.125 mg tablet 3.125 mg PO BID Qty: 180 3RF lansoprazole 30 mg capsule,delayed release(DR/EC) 30 mg PO DAILY 30 Days Qty: 30 0RF Discharge Orders: Discharge ED (Routine); Ordered 01/11/22 Ordered By: Moiz Abdalla Referrals: Renate Trevizo DO [Primary Care Provider] - Discharge Diet: Usual diet Discharge Activity: Increase activity as tolerated Patient Instructions: COVID-19 (Coronavirus Disease 2019) (ED), Opioid Safety, Pain Management Activity Restrictions/Additional Instructions: Maintain self quarantine until you are fever free and symptoms are improving for at least 24 hours. If breathing worsens you should be reevaluated. 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
== END 2022-01-11 10:10 | disposition home or self-care (01) ==
PROVIDERS: Emergency Provider Family Medicine; PCP Family Medicine
DX: U07.1 COVID-19 (principal); E11.9 Type 2 diabetes mellitus without complications; I25.10 Atherosclerotic heart disease of native coronary artery without angina pectoris; I25.2 Old myocardial infarction; I50.9 Heart failure, unspecified; Z82.49 Family history of ischemic heart disease and other diseases of the circulatory system
CPT/HCPCS: 99283

== ENCOUNTER → 2022-04-17 08:18 | Outpatient (BNVA) | payer MEDICARE, OTHER, SELFPAY | PROVIDERS: PCP Family Medicine; Visit Provider Family Medicine | DX: Z13.6 Encounter for screening for cardiovascular disorders (principal); E11.9 Type 2 diabetes mellitus without complications; K21.9 Gastro-esophageal reflux disease without esophagitis | CPT/HCPCS: 80053; 80061; 83036; 85025 ==

== ENCOUNTER → 2022-07-15 14:13 | Outpatient (BNVA) | payer MEDICARE, OTHER, SELFPAY | PROVIDERS: PCP Family Medicine; Visit Provider Nurse Practitioner Family | DX: I25.10 Atherosclerotic heart disease of native coronary artery without angina pectoris (principal); I25.2 Old myocardial infarction; Z79.82 Long term (current) use of aspirin | CPT/HCPCS: 99213 ==

== ENCOUNTER 2022-11-11 08:54 | Observation (INO) | payer MEDICARE, OTHER, SELFPAY ==
[2022-11-11] VITALS (55 sets, daily range): BP systolic 124–153; BP diastolic 63–86; PULSE 47–67; RESP 3–24; TEMP 36.8; O2SAT 92–97; BMI 30.6
--- NOTE | 2022-11-11 09:15 | XRR_ITS ---
PROCEDURE INFORMATION: Exam: XR Chest Exam date and time: 11/11/2022 9:35 AM Age: 77 years old Clinical indication: Pain; Angina pectoris; Prior surgery; Surgery date: 6+ months; Surgery type: Stent; Additional info: Cp TECHNIQUE: Imaging protocol: Radiologic exam of the chest. Views: 1 view. COMPARISON: CR XR chest 1V portable [id number] 12/24/2019 12:02 PM FINDINGS: Lungs: Unremarkable. No consolidation. Pleural spaces: Unremarkable. No pleural effusion. No pneumothorax. Heart/Mediastinum: Unremarkable. No cardiomegaly. Bones/joints: Unremarkable. XR/XR chest 1V portable [id number] IMPRESSION: No acute findings.
--- NOTE | 2022-11-11 09:15 | ECG_ITS ---
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 Measurements Intervals Burden Rate: 58 P: 43 LA: 233 QRS: 18 QRSD: 161 T: 152 QT: 467 QTc: 461 Interpretive Statements SINUS BRADYCARDIA WITH FIRST DEGREE AV BLOCK LEFT BUNDLE BRANCH BLOCK [120+ ms QRS DURATION, 80+ ms Q/S IN V1/V2, 85+ ms R IN I/aVL/V5/V6] Compared to ECG 12/24/2019 11:33:20 No significant changes Electronically Signed On 11-11-2022 14:36:58 CDT by Kwan Shah M.D. [id number]
[2022-11-11 09:33] LABS: Basophils # 0.1 10^3/uL (0.0-0.1); Basophils % 0.8 %; Eosinophils # 0.2 10^3/uL (0.0-0.8); Eosinophils % 3.5 %; Hematocrit 46.7 % (42.0-52.0); Hemoglobin 15.8 g/dL (11.7-16.6); Lymphocytes # 2.5 10^3/uL (0.8-4.8); Lymphocytes % 39.7 %; Mean Corpuscular HGB Conc 33.8 g/dL (30.0-36.0); Mean Corpuscular Hemoglobin 30.9 pg (28.0-34.0); Mean Corpuscular Volume 91.4 fl (80-94); Monocytes # 0.5 10^3/uL (0.2-0.9); Monocytes % 8.5 %; Neutrophils # 2.92 10^3/uL (1.8-7.7); Nucleated Red Blood Cells % 0 %; Platelet Count 148 10^3/cmm (130-400); Red Blood Count 5.11 10^6/uL (4.1-5.3); Red Cell Distribution Width 12.3 % (12.1-15.1); White Blood Count 6.2 10^3/uL (4.0-10.0)
[2022-11-11 09:57] LABS: Troponin(5th) Baseline 14 ng/L (0-15)
[2022-11-11 10:04] LABS: Alanine Aminotransferase 22 U/L (0-41); Albumin Level 3.9 g/dL (3.5-5.2); Alkaline Phosphatase 67 U/L (40-130); Anion Gap 14.2 (5-19); Aspartate Amino Transferase 15 U/L (0-40); Blood Urea Nitrogen 16 mg/dL (8-23); Calcium 8.1 mg/dL (8.5-10.5); Carbon Dioxide 23 mmol/L (22-29); Chloride 102 mmol/L (98-107); Globulin 2.6 g/dL (1.3-4.6); Glucose 189 mg/dL (65-115); NT Pro B Type Natriuretic Pept 265 pg/mL (0-450); Osmolality Calculated 286 mOsm/kg (285-295); Potassium 4.2 mmol/L (3.5-5.1); Sodium 135 mmol/L (136-145); Total Bilirubin 0.4 mg/dL (0.15-1.2); Total Protein 6.5 g/dL (6.6-8.7)
--- NOTE | 2022-11-11 11:35 | ECG_ITS ---
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 Measurements Intervals [place] Rate: 53 P: 33 MD: 224 QRS: 21 QRSD: 158 T: 199 QT: 494 QTc: 466 Interpretive Statements SINUS BRADYCARDIA WITH FIRST DEGREE AV BLOCK INTRAVENTRICULAR CONDUCTION DELAY [130+ ms QRS DURATION] Compared to ECG 11/11/2022 09:11:26 Intraventricular conduction delay now present Left bundle-branch block no longer present Electronically Signed On 11-11-2022 17:39:28 CDT by Kwan Shah M.D. [id number]
--- NOTE | 2022-11-11 11:48 | W.ED.CHESTPA ---
HPI - Chest Pain General: Chief Complaint: Chest Pain Stated Complaint: chest pain for three days, pressure down arms Time Seen by Provider: 11/11/22 09:15 Source: patient Mode of arrival: ambulatory History of Present Illness: 77-year-old male presents emergency room complaining of chest pain intermittently for 3 days he has noticed anything exacerbates it really. He has mild substernal chest pain radiating to his arms. He has not really take anything for it. He is not having any chest pain at this time. He has a known history of coronary disease with previous stenting. He states these episodes are associated with severe fatigue and on 1 time at 1 occasion shortness of breath no diaphoresis. MD complaint: chest pain Pertinent past history: coronary artery disease Onset (ago): day(s) (3) Timing of current episode: episodic Prior episodes: Yes Onset: during rest Pain location: substernal and left chest Pain radiation: right arm and left arm Severity: mild Quality: aching and heaviness Relieving factors: nothing Exacerbating factors: nothing Associated symptoms: Deny abdominal pain, diaphoresis, dyspnea, fever(s), leg edema, nausea, palpitations, sense of impending doom, syncope or vomiting Review of Systems Const: Reports: fatigue; Denies: fever(s), chills or diaphoresis ENMT: Denies: throat pain, ear or mastoid pain, nasal discharge or nasal congestion Card: Reports: chest pain; Denies: palpitations, irregular heart rhythm, edema, syncope, dyspnea on exertion or orthopnea Resp: Denies: dyspnea, productive cough, non-productive cough or wheezing GI: Denies: abdominal pain, nausea or vomiting : Denies: flank pain, dysuria, urinary frequency or urinary urgency Skin/Breast: Denies: rash or pruritus PFSH ED PFSH: Medical History BPH with obstruction/lower urinary tract symptoms CAD (coronary artery disease) Chronic neck pain Chronic prostatitis Diverticulitis of sigmoid colon History of colon polyps History of MD (myocardial infarction) Type 2 diabetes mellitus, without long-term current use of insulin Surgical History H/O circumcision H/O colonoscopy (01/17/20) descending colon polyp and sigmoid diverticulitis H/O knee surgery History of hemorrhoidectomy Status post appendectomy Status post coronary angioplasty Family History Father , at age 92-heart trouble No problems noted. Mother , AT AGE 88-ALZHEIMERS No problems noted. Other CAD (coronary artery disease) Cancer Diabetes Hypertension Denies family history of Anesthesia complication Bleeding disorder Social History Smoking and tobacco status: never smoked Alcohol intake: current Alcohol intake frequency: 0-2 Drinks per Day Substance/Drug Use: never Household members: spouse Marital status: Current occupational status: retired Physical Exam Const: GENERAL APPEARANCE: cooperative and comfortable ORIENTATION/CONSCIOUSNESS: Yes awake, Yes oriented to person, Yes oriented to place and Yes oriented to time HENMT: COMMON NORMALS: normocephalic, atraumatic and hearing grossly normal bilaterally HEAD & SCALP: normocephalic and atraumatic Resp: COMMON NORMALS: normal respiratory effort, No retractions, No use of accessory muscles and clear to auscultation bilaterally AUSCULTATION: clear to auscultation bilaterally Cardio: COMMON NORMALS: regular rate, regular rhythm and No murmurs present (Cardio) RATE: regular rate RHYTHM: regular rhythm GI: COMMON NORMALS: Soft to palpation and No hepatosplenomegaly present AUSCULTATION: Yes normoactive bowel sounds PALPATION: Yes Soft to palpation, No Tenderness to palpation present (GI), No Guarding due to palpation present (GI) and Yes No hepatosplenomegaly present Extremity: COMMON NORMALS: normal to inspection, capillary refill normal, no clubbing, cyanosis or edema, no calf tenderness and no pedal edema Neuro: SENSORIUM/ORIENTATION: Yes oriented to person, Yes oriented to place and Yes oriented to time Skin: COMMON NORMALS: no rashes or lesions noted GENERAL SKIN EXAM: no rashes or lesions noted Course Vital Signs: Vital signs: Vital Signs Temperature 98.2 F 11/11/22 09:04 Pulse Rate 56 L 11/11/22 15:13 Respiratory Rate 16 11/11/22 15:13 Blood Pressure 153/80 11/11/22 13:30 Pulse Oximetry 96 11/11/22 15:13 Oxygen Delivery Me thod Room Air 11/11/22 15:13 MDM - Chest Pain Medical Decision Making Cardiac enzymes and EKG unremarkable. However patient had a positive stress test in July 2021 is not having any chest pain at that time is decided to just observe and treat medically. Since he is not having escalating angina with unstable angina,cardiology recommends observation and heart cath. He has noticed exertional angina relieved by rest and is now getting angina at rest that will resolve spontaneously. He is symptom-free at this time place him on nitro okay we will load discussed with hospitalist and agree with senior lead java developer orders written Medical Records I reviewed the patient's medical records. Lab Data I reviewed the patient's lab results. 11/11/22 09:23 11/11/22 09:23 Radiology Impressions Chest X-Ray 11/11/22 09:15 IMPRESSION: No acute findings. Laboratory Results WBC 6.2 10^3/uL (4.0-10.0) 11/11/22 09: RBC 5.11 10^6/uL (4.1-5.3) 11/11/22 09:23 Hgb 15.8 g/dL (11.7-16.6) 11/11/22 09:23 Hct 46.7 % (42.0-52.0) 11/11/22 09: MCV 91.4 fl (80-94) 11/11/22 09: MCH 30.9 pg (28.0-34.0) 11/11/22 09: MCHC 33.8 g/dL (30.0-36.0) 11/11/22 09: RDW 12.3 % (12.1-15.1) 11/11/22 09:23 Plt Count 148 10^3/cmm (130-400) 11/11/22 09:23 MPV 11.0 fL (7.4-10.4) H 11/11/22 09: Neut % (Auto) 47.0 % 11/11/22 09: Lymph % (Auto) 39.7 % 11/11/22 09:23 [place] % (Auto) 8.5 % 11/11/22 09:23 Eos % (Auto) 3.5 % 11/11/22 09:23 Baso % (Auto) 0.8 % 11/11/22 09:23 Neut # (Auto) 2.92 10^3/uL (1.8-7.7) 11/11/22 09:23 Lymph # (Auto) 2.5 10^3/uL (0.8-4.8) 11/11/22 09:23 [place] # (Auto) 0.5 10^3/uL (0.2-0.9) 11/11/22 09:23 Eos # (Auto) 0.2 10^3/uL (0.0-0.8) 11/11/22 09: Baso # (Auto) 0.1 10^3/uL (0.0-0.1) 11/11/22 09: Nucleated RBC % (auto) 0 % 11/11/22 09: Nucleated RBCs # 0.0 /100WBC 11/11/22 09: Sodium 135 mmol/L (136-145) L 11/11/22 09: Potassium 4.2 mmol/L (3.5-5.1) 11/11/22 09: Chloride 102 mmol/L (98-107) 11/11/22 09: Carbon Dioxide 23 mmol/L (22-29) 11/11/22 09: Anion Gap 14.2 (5-19) 11/11/22 09: BUN 16 mg/dL (8-23) 11/11/22 09: Creatinine 1.0 mg/dL (0.7-1.2) 11/11/22 09: GFR Calculation Not Reportable 11/11/22 09: Glucose 189 mg/dL (65-115) H 11/11/22 09:23 Calculated Osmolality 286 mOsm/kg (285-295) 11/11/22 09:23 Calcium 8.1 mg/dL (8.5-10.5) L 11/11/22 09:23 Total Bilirubin 0.4 mg/dL (0.15-1.2) 11/11/22 09: AST 15 U/L (0-40) 11/11/22 09:23 ALT 22 U/L (0-41) 11/11/22 09:23 Alkaline Phosphatase 67 U/L (40-130) 11/11/22 09: Troponin T Baseline 14 ng/L (0-15) 11/11/22 09:23 Troponin T 120 Minute 12.24 ng/L (0-15) 11/11/22 11:27 Delta Troponin T -1.76 ABS# (0-10) L 11/11/22 11:27 NT-Pro-B Natriuret Pep 265 pg/mL (0-450) 11/11/22 09:23 Total Protein 6.5 g/dL (6.6-8.7) L 11/11/22 09:23 Albumin 3.9 g/dL (3.5-5.2) 11/11/22 09:23 Globulin 2.6 g/dL (1.3-4.6) 11/11/22 09:23 Discharge Plan Discharge Patient Disposition: Admitted As Inpatient Admit Provider: Leticia Stephen Clinical Impression: Unstable angina pectoris, CAD (coronary artery disease), Status post coronary angioplasty, Type 2 diabetes mellitus, without long-term current use of insulin Condition: Stable Coding Level of Care Code 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
[2022-11-11 12:14] LABS: Troponin 5 2HR 12.24 ng/L (0-15)
[2022-11-11 12:18] LABS: Troponin 5 2HR Delta -1.76 ABS# (0-10)
[2022-11-11] MEDS: nitroglycerin 1 gm/inch oint Pkt 1 INCH TOPICAL (12:46)
[2022-11-11] MEDS: enoxaparin 120 mg/0.8 mL Syringe 110 MG SUBCUT (12:49)
--- NOTE | 2022-11-11 12:56 | PC.PHAR ---
pts verified pts medications
--- NOTE | 2022-11-11 13:50 | PM.HP ---
Providers/Chief Complaint Admitting Physician: Leticia Stephen MD Primary Care Provider: Renate Trevizo DO Chief Complaint: chest pain for three days, pressure down arms History of Present Illness Jaskaran Brown is a 77 year old male with history of PTSD, established coronary disease, follows with Dr. Shah presents to the hospital for chief complaint of sternal pressure, patient is stating that he was experiencing chest discomfort on and off at rest but mainly on exertion which would last maximum to 30 minutes and then would ease up, he has not noticed any swelling, shortness of breath, nausea, vomiting. No syncopal events. He is compliant with his medications. Patient is very proud of getting himself weaned off all the anxiolytics and antipsychotics which she was taking for his PTSD, he is also thrilled for release of his back which he wrote recently At the time of my evaluation heart rate was in low 50s with normal blood pressure no active chest pain, I have removed Nitropaste which was started in the ER Cardiology consulted EKG and troponin does not show acute DE related changes Review of Systems Narrative: No active chest pain No fatigue or lethargy No chills No shortness of breath No nausea vomiting Abdomen soft No headache No skin rash No joint pains Medications/Allergies Home Medications Medication Instructions Recorded Confirmed Last Taken Type aspirin 81 mg tablet,delayed 81 mg PO BEDTIME@209904/28/19 11/11/22 11/10/22 History release (Adult Aspirin Regimen) doxylamine succinate 25 mg tablet 12.5 mg PO BEDTIME@209904/28/19 11/11/22 11/10/22 History (Unisom (doxylamine)) aspirin-caffeine 500 mg-32.5 mg 1 tab PO BID PRN Pain 11/11/22 11/11/22 Unknown History tablet (Hood Back and Body) carvedilol 3.125 mg tablet 3.125 mg PO BID@0630,209911/11/22 11/11/22 11/11/22 07:00 History clopidogrel 75 mg tablet 75 mg PO BEDTIME@209911/11/22 11/11/22 11/10/22 History lansoprazole 30 mg capsule,delayed 30 mg PO DAILY@0630 11/11/22 11/11/22 11/11/22 History release melatonin 10 mg tablet 10 mg PO BEDTIME PRN Sleep 11/11/22 11/11/22 Unknown History nitroglycerin 0.4 mg sublingual 0.4 mg sublingual Q5M PRN Chest 11/11/22 11/11/22 Unknown History tablet (Nitrostat) Pain Allergies Allergy/AdvReac Type Severity Reaction Status Date / Time Sulfa (Sulfonamide Allergy ALGY-Rash Verified 11/11/22 12:52 Antibiotics) PFSH Acute PFSH: Medical History BPH with obstruction/lower urinary tract symptoms CAD (coronary artery disease) Chronic neck pain Chronic prostatitis Diverticulitis of sigmoid colon History of colon polyps History of DE (myocardial infarction) Type 2 diabetes mellitus, without long-term current use of insulin Surgical History H/O circumcision H/O colonoscopy (01/17/20) descending colon polyp and sigmoid diverticulitis H/O knee surgery History of hemorrhoidectomy Status post appendectomy Status post coronary angioplasty Family History Father , at age 92-heart trouble No problems noted. Mother , AT AGE 88-ALZHEIMERS No problems noted. Other CAD (coronary artery disease) Cancer Diabetes Hypertension Denies family history of Anesthesia complication Bleeding disorder Social History Smoking and tobacco status: never smoked Alcohol intake: current Alcohol intake frequency: 0-2 Drinks per Day Substance/Drug Use: never Household members: spouse Marital status: Current occupational status: retired Vitals/I&O/Wt Last Vital Signs Temp 98.2 F 11/11/22 09:04 Pulse 61 11/11/22 13:25 Resp 18 11/11/22 13:25 BP 153/80 11/11/22 13:30 Pulse Ox 97 11/11/22 13:45 O2 Del Method Room Air 11/11/22 09:04 Weight last 48 hrs Weight 111.13 kg Physical Exam Narrative: No active chest pain Pleasant and cooperative Tall male GCS 15 Pleasant and cooperative Abdomen soft Currently doing well room air Heart rate 50 sinus bradycardia Hemodynamically stable at the bedside Nonfocal neuro exam Data 11/12/22 04:37 11/12/22 04:37 A&P Assessment and plan (1) Unstable angina pectoris: (2) Type 2 diabetes mellitus, without long-term current use of insulin: (3) BPH with obstruction/lower urinary tract symptoms: Plan Unstable angina History of coronary disease 2021 work-up showed teresa-infarct ischemia which was being managed medically Now there is plan for angiogram for persistent chest pain Cardiology consulted We will status post with Dr. Shah N.p.o. after midnight Start ACS protocol with therapeutic Lovenox Troponin EKG unremarkable at this point Check D-dimer Requested echo, PTSD without acute exacerbation Full code N.p.o. after midnight Spoke with the transfer station attendant Dr. Graves Self interpretation of EKG: Sinus rhythm without acute ischemic or infarct changes Attestations Medical Necessity Statement*: Patient will go for angiogram for unstable angina Diagnoses Unstable angina pectoris I20.0 Type 2 diabetes mellitus, without long-term current use of insulin E11.9 BPH with obstruction/lower urinary tract symptoms N40.1; N13.8
--- NOTE | 2022-11-11 13:57 | USCV_ITS ---
Glasford Jaskaran Age: 77 Gender: M : 1945 Exam Date: 11/11/2022 15:13 Ordering Phys: Leticia Stephen MD Technologist: James Carrasquillo [place] [facility] [place]: nstemi BP: / HR: 52 Rhythm: Sinus Technical Quality: Adequate MEASUREMENTS (Male / Female) Normal Values 2D ECHO LV Diastolic Diameter PLAX 5.6 cm 4.2 - 5.9 / 3.9 - 5.3 cm LV Systolic Diameter PLAX 4.8 cm IVS Diastolic Thickness 1.6 cm 0.6 - 1.0 / 0.6 - 0.9 cm IVS Systolic Thickness 1.7 cm LVPW Diastolic Thickness 1.2 cm 0.6 - 1.0 / 0.6 - 0.9 cm LVPW Systolic Thickness 1.2 cm LVOT Diameter 2.0 cm LV Ejection Fraction 2D Teich 31.8 % LV Ejection Fraction MOD 2C 39.9 % LV Ejection Fraction 2C AL 39.5 % LA Diameter 3.7 cm M-MODE Aortic Annulus Diameter 3.8 cm LA Ao Ratio MM 1.0 MV E Point Septal Separation 2.0 cm DOPPLER AV Peak Velocity 123.0 cm/s LVOT Peak Velocity 122.0 cm/s AV Area Cont Eq vti 2.6 cm squared AV Area Cont Eq pk 3.1 cm squared MV Area PHT 3.8 cm squared Mitral E to A Ratio 0.8 MV E' Velocity 48.4 cm/s Mitral E to MV E' Ratio 12.9 Mitral E to LV E' Lateral Ratio 10.2 Mitral E to LV E' Septal Ratio 17.7 TR Peak Velocity 90.3 cm/s TR Peak Gradient 3.3 mmHg RV Acceleration Time 0.2 s FINDINGS Left Ventricle Left ventricle is dilated. Grossly LV systolic function is moderate to severely reduced. Regional wall motion abnormalities cannot accurately be assessed because of poor visualization. Grade 1 diastolic dysfunction. Right Ventricle Right ventricle is hypokinetic. Right Atrium Not well visualized Left Atrium Normal in size Mitral Valve Structurally normal mitral valve. Mild mitral regurgitation. Aortic Valve Grossly norrmal. No significant stenosis or regurgitation seen. Tricuspid Valve Not well visualized Pulmonic Valve Not well visualized Pericardium Normal Aorta Normal in size IVC Not well visualized CONCLUSIONS Technically limited quality echocardiogram because of poor ultrasonic windows. Left ventricle is dilated. Grossly LV systolic function is moderate to severely reduced. Regional wall motion abnormalities cannot accurately be assessed because of poor visualization Grade 1 diastolic dysfunction Mild mitral regurgitation Accurate comparison with prior echocardiogram is not possible because of limited visualization. However grossly LV systolic function has significantly decreased Kwan Shah MD (Electronically Signed) Final Date: 11 November 2022 18:47 S
--- NOTE | 2022-11-11 14:06 | PC.NURSE ---
Patient arrived from ED via wheelchair with spouse at bedside. Patient is sitting up in chair, alert, oriented and has been oriented to his surroundings. VS are stable, nurse will continue to monitor
[2022-11-11] MEDS: sodium chloride 0.9% 1,000 ML 75 ML IV (14:30)
--- NOTE | 2022-11-11 15:02 | ECG_ITS ---
[facility] Test Date: 2022-11-11 Pat Name: Jaskaran Brown Department: Room: 104 Gender: Male Chief Mate: : 1945 Requested By: Efrain Carlisle Order Number: [id number] Aguilar MD: Kwan Shah M.D. Measurements Intervals [place] Rate: 54 P: 12 AR: 221 QRS: -14 QRSD: 161 T: 146 QT: 460 QTc: 437 Interpretive Statements SINUS BRADYCARDIA WITH FIRST DEGREE AV BLOCK INTRAVENTRICULAR CONDUCTION DELAY [130+ ms QRS DURATION] Compared to ECG 11/11/2022 11:35:10 No significant changes Electronically Signed On 11-11-2022 17:37:50 CDT by Kwan Shah M.D. [id number]
[2022-11-11 15:16] LABS: D Dimer 0.37 ug/mIFEU (0-0.59)
--- NOTE | 2022-11-11 16:49 | PM.CONSULT ---
Providers/Reason For Consult Consulting Physician/Specialty*: Kwan Shah MD/ Cardiology Reason for Consult*: Worsening angina Requesting Physician: Dr Abdalla Attending Physician: Leticia Stephen MD Primary Care Provider: Renate Trevizo DO History of Present Illness History of Present Illness Jaskaran Brown is a 77 year old male with past medical history of CAD with LAD stent several years ago has presented to hospital with chest tightness. According to patient for the last 3 to 4 days he had on and off chest discomfort. It is substernal and radiates to both arms. Denies active chest pain right now. His troponins have not trended up. EKG shows normal sinus bradycardia with left bundle branch block. Review of Systems Const: Reports: fatigue Card: Reports: chest pain; Denies: palpitations, irregular heart rhythm, edema, swelling of feet/ankles, lightheadedness, pre-syncope, dyspnea on exertion, orthopnea or leg pain with exertion Resp: Reports: dyspnea; Denies: productive cough Musc: Reports: neck pain and back pain Neuro: Denies: headache(s) or dizziness Psych: Reports: depression (PTSD); Denies: suicidal ideation or homicidal ideation Lemuel/Lymph: Reports: easy bruising and easy bleeding Medications/Allergies Home Medications Medication Instructions Recorded Confirmed Last Taken Type aspirin 81 mg tablet,delayed 81 mg PO BEDTIME@209904/28/19 11/11/22 11/10/22 History release (Adult Aspirin Regimen) doxylamine succinate 25 mg tablet 12.5 mg PO BEDTIME@209904/28/19 11/11/22 11/10/22 History (Unisom (doxylamine)) aspirin-caffeine 500 mg-32.5 mg 1 tab PO BID PRN Pain 11/11/22 11/11/22 Unknown History tablet (Hood Back and Body) carvedilol 3.125 mg tablet 3.125 mg PO BID@0630,209911/11/22 11/11/22 11/11/22 07:00 History clopidogrel 75 mg tablet 75 mg PO BEDTIME@209911/11/22 11/11/22 11/10/22 History lansoprazole 30 mg capsule,delayed 30 mg PO DAILY@0630 11/11/22 11/11/22 11/11/22 History release melatonin 10 mg tablet 10 mg PO BEDTIME PRN Sleep 11/11/22 11/11/22 Unknown History nitroglycerin 0.4 mg sublingual 0.4 mg sublingual Q5M PRN Chest 11/11/22 11/11/22 Unknown History tablet (Nitrostat) Pain Allergies Allergy/AdvReac Type Severity Reaction Status Date / Time Sulfa (Sulfonamide Allergy ALGY-Rash Verified 11/11/22 12:52 Antibiotics) Current Medications Generic Name Dose Route Start Last Admin Trade Name Anderson PRN Reason Stop Dose Admin Sodium Chloride 1,000 mls @ 75 mls/hr 11/11/22 14:00 11/11/22 14:30 Sodium Chloride 0.9% IV 75 mls/hr .[id number] MAE Administration PFSH Acute PFSH: Medical History BPH with obstruction/lower urinary tract symptoms CAD (coronary artery disease) Chronic neck pain Chronic prostatitis Diverticulitis of sigmoid colon History of colon polyps History of [place] (myocardial infarction) Type 2 diabetes mellitus, without long-term current use of insulin Surgical History H/O circumcision H/O colonoscopy (01/17/20) descending colon polyp and sigmoid diverticulitis H/O knee surgery History of hemorrhoidectomy Status post appendectomy Status post coronary angioplasty Family History Father , at age 92-heart trouble No problems noted. Mother , AT AGE 88-[place]HEIMERS No problems noted. Other CAD (coronary artery disease) Cancer Diabetes Hypertension Denies family history of Anesthesia complication Bleeding disorder Social History Smoking and tobacco status: never smoked Alcohol intake: current Alcohol intake frequency: 0-2 Drinks per Day Substance/Drug Use: never Household members: spouse Marital status: Current occupational status: retired Vitals/I&O/Wt Last Vital Signs Temp 98.2 F 11/11/22 09:04 Pulse 56 L 11/11/22 15:13 Resp 16 11/11/22 15:13 BP 153/80 11/11/22 13:30 Pulse Ox 96 07/25/23 15:13 O2 Del Method Room Air 11/11/22 15:13 Weight last 48 hrs Weight 245 lb Physical Exam Narrative: GENERAL: Patient is alert, awake and oriented x3. [] NECK: No jugular vein distension. [] HEENT: No cyanosis. No icterus. No pallor. [] HEART: Regular S1 and S2. No murmur, rub or gallop. [] LUNGS: Clear to auscultate bilaterally. [] CENTRAL NERVOUS SYSTEM: Grossly nonfocal. [] EXTREMITIES: Lower extremities with 1+ edema bilaterally. Pulses palpable in the lower extremities, both dorsalis pedis and posterior tibial. [] Data 11/12/22 04:37 11/12/22 04:37 A&P Assessment and plan (1) Unstable angina pectoris: (2) Type 2 diabetes mellitus, without long-term current use of insulin: (3) CAD (coronary artery disease): (4) GERD (gastroesophageal reflux disease): Qualifiers: Esophagitis presence: without esophagitis Qualified Code(s): K21.9 - Gastro-esophageal reflux disease without esophagitis Plan Patient has presented with worsening anginal symptoms. Given significant CAD history, we will proceed with coronary angiogram with possible percutaneous coronary intervention. Risks and benefits of the procedure were discussed with the patient. He understands the risks and benefits and wants to proceed. N.p.o. past midnight. Echocardiogram ordered Continue aspirin and Plavix. Thank you for involving us with care of this patient. We will continue to follow. Please call with questions. Consult Attestations Medical Necessity Statement: Care expected to cross 2 midnights. Coding Level of Care Code Acute Code for Chg Fwd Diagnoses Unstable angina pectoris I20.0 Type 2 diabetes mellitus, without long-term current use of insulin E11.9 CAD (coronary artery disease) I25.10 GERD (gastroesophageal reflux disease) K21.9 Esophagitis presence: without esophagitis
[2022-11-11 17:23] LABS: Glucose Point of Care 167 mg/dL (70-110)
[2022-11-11] MEDS: aspirin 81 mg EC Tablet PO (21:18)
[2022-11-11] MEDS: clopidogrel 75 mg Tablet PO (21:18)
[2022-11-11 21:50] LABS: Glucose Point of Care 134 mg/dL (70-110)
[2022-11-11] MEDS: acetaminophen 500 mg Tablet PO (23:51)
[2022-11-12] VITALS (10 sets, daily range): BP systolic 127–144; BP diastolic 75–82; PULSE 57–75; RESP 15–21; TEMP 36.6–36.8; O2SAT 94–97
[2022-11-12] MEDS: sodium chloride 0.9% 1,000 ML 50 ML IV (04:04)
[2022-11-12 05:20] LABS: Basophils % 0.6 %; Eosinophils # 0.2 10^3/uL (0.0-0.8); Eosinophils % 3.7 %; Hematocrit 43.5 % (42.0-52.0); Hemoglobin 14.7 g/dL (11.7-16.6); Lymphocytes % 47.1 %; Mean Corpuscular HGB Conc 33.8 g/dL (30.0-36.0); Mean Corpuscular Hemoglobin 30.9 pg (28.0-34.0); Mean Corpuscular Volume 91.6 fl (80-94); Mean Platelet Volume 11.4 fL (7.4-10.4); Monocytes # 0.6 10^3/uL (0.2-0.9); Monocytes % 9.1 %; Neutrophils # 2.46 10^3/uL (1.8-7.7); Nucleated Red Blood Cells % 0 %; Platelet Count 132 10^3/cmm (130-400); Red Blood Count 4.75 10^6/uL (4.1-5.3); Red Cell Distribution Width 12.4 % (12.1-15.1); White Blood Count 6.3 10^3/uL (4.0-10.0)
[2022-11-12 05:47] LABS: Anion Gap 13.3 (5-19); Blood Urea Nitrogen 15 mg/dL (8-23); Calcium 8.4 mg/dL (8.5-10.5); Carbon Dioxide 25 mmol/L (22-29); Chloride 107 mmol/L (98-107); Glucose 134 mg/dL (65-115); Magnesium 1.6 mg/dL (1.7-2.3); Osmolality Calculated 295 mOsm/kg (285-295); Potassium 4.3 mmol/L (3.5-5.1); Sodium 141 mmol/L (136-145)
[2022-11-12] MEDS: pantoprazole DR 40 mg Tablet PO (05:50)
[2022-11-12 06:16] LABS: Glucose Point of Care 131 mg/dL (70-110)
[2022-11-12] MEDS: diphenhydrAMINE 50 mg Capsule PO (09:53)
--- NOTE | 2022-11-12 10:00 | XACV_ITS ---
Exam Room: [facility] Ht: 191 cm Wt: 111 kg BSA: 2.45 m2 Gender: Male : 1945 Any Known Allergies: Sulfa Exam Priority: Routine Procedure(s): Procedure Description: Diagnostic procedure Procedure Description: PCI procedure Procedure Description: Left Heart Catheterization Procedure Description: Drug Eluting Coronary Stent Procedure Description: PTCA Procedure Description: Miscellaneous Procedure Description: ACT Procedure Description: Coronary Angiography Diagnostic Cath Status: Urgent Diagnostic Findings * Left Main has no significant disease. * Proximal Left Anterior Descending: chronic total occlusion (occluded old stent), BRICE: 0 flow. * Proximal Right Coronary Artery: mild 40% stenosis, BRICE: 3 flow. * Proximal Circumflex: significant 80% stenosis, BRICE: 3 flow. * Coronary angiography shows right dominance. PCI Status: Urgent PCI Indication: Other Interventional Findings * PROCEDURE DETAIL: We engaged left main artery with XB 3.5 guide catheter. IV heparin was administered to maintain anticoagulation. 0.014 run-through guidewire was used to cross the proximal left circumflex artery stenosis and was put in distal vessel. We predilated the stenosis with 2.5 x 15 mm NC balloon. This was followed with placement of 3.0 x 26 mm resolute Willie drug-eluting stent. At this time final angiogram was performed that showed excellent stent expansion, no residual stenosis and BRICE-3 flow. Guidewire and guide catheter were removed. Patient left the Supermarket Manager in a stable condition.. * Proximal Circumflex: 80% stenosis treated with a MDT HAY EUPHORA RX [id number] BALLOON, and MDT José WILLIE 3.0X26 ROHAN. 0% residual stenosis, BRICE: 3 flow. Conclusions 1. Severe proximal left circumflex artery stenosis status post successful revascularization with 1 stent. Chronic total occlusion of proximal LAD (occluded stent). 2. Proximal Circumflex was treated with a Balloon, and Drug Eluting Stent. Recommendations * Dual antiplatelet therapy with aspirin and Plavix. * High intensity statin therapy. * Outpatient cardiology follow up in 4 weeks. Interventional RX Recommendation: PCI w/o planned CABG Diagnostic RX Recommendation: PCI w/o planned CABG Anticoagulation: Heparin Pressures Phase:Rest AO : 109 / 78 ( 93 ) @ 11:40:00 AM 139 / 75 ( 102 ) @ 11:43:00 AM 140 / 76 ( 103 ) @ 11:43:00 AM 83 / 61 ( 64 ) @ 11:50:00 AM LV : 127 / 3 / 16 @ 11:43:00 AM 128 / 5 / 18 @ 11:43:00 AM Valves Phase:DefaultPhase AV : 0.0 @ 11:09:25 AM 0.0 @ 11:09:25 AM AV Mean Gradient: 0.0 @ 11:09:25 AM 0.0 @ 11:09:25 AM Clinical Evaluation EBL: 5mL-10mL Procedural Details Procedure Consent Obtained. Pre-Procedure Time Out. Identified patient by full name and date of as verbalized by the patient/guarantor. Does the consent match the physician's order: Yes. Accurate & Complete Informed Consent: Yes. Inpatient/Outpatient History & Physical on Chart: Yes. If H&P is completed, is and addenduem needed: No. Visualize and Verify Site with Patient/Guarantor: N/A. Relevant Radiology Images available: Yes. The risks, benefits, and alternatives of sedation and/or procedure were discussed by physician. The patient agrees to continue. Procedure started. [facility] Clinical Fraility Score: 3: Managing Well. Supermarket Manager Indications: Worsening Angina. Chest Pain Symptom Assessment: Typical Angina Symptoms. Cardiovascular Instability: No. Correct patient, site and procedure confirmed by cath team. PERRLA. Strong, equal hand death clearance coordinator bilaterally. Lungs clear x 5 lobes. IV Site on Arrival: 20 gauge in the left anticubital. IV Fluids: 0.9% NaCl at KVO. 500 mL infused prior to dentures lab technician. Pre Procedural Pulses: bilateral radial was 3+. Pre Procedural Pulses: bilateral dorsalis pedis was Doppled. Pre Procedural Pulses: bilateral posterior tibial was Doppled. Oxygen started at 2liters/min via nasal canula. right groin was prepped with chloroprep then draped in the usual sterile fashion. right radial was prepped with chloroprep then draped in the usual sterile fashion. Physician notified. Baseline sample Acquired. HR: 67 BPM. Patient's family in the dentures lab technician waiting room. Dr. Shah will update at the completion of the procedure. Equipment: 6F - Radial. Cardiac Cath Pack. ACIST Manifold Kit Model BT 2000. Heparinized Saline (2 units/mL), 1000 mL bag. Physician arrived. Physician scrubbed in. Immediate Pre-Procedure Time Out. Correct Patient: Yes; Correct Procedure: Yes; Correct Site: Yes; Correct Patient Position: Yes; Correct Supplies: Yes; Dried Flammable Prep: Yes; Blood Products Available: N/A;. Lidocaine 1% infiltrated to the right radial. Arterial access obtained. A 5 mongolian TIG catheter in over the exchange J wire. Multiple views taken of left coronary artery. Catheter redirected to the RCA. Multiple views taken of right coronary artery. Catheter redirected to the LV. EDP Sample taken: LV 127/3,16; HR: 80 BPM; SpO2: 96%. Pullback taken: LV 128/5,18; AO 139/75(102); Mean: 0mmHg, Peak to Peak: 0mmHg, SEP: 7sec/min; HR: 76 BPM; SpO2: 95%. Catheter removed over the exchange J wire. 6 mongolian XB 3.5 guide catheter was inserted over the exchange J wire. Runthrough guidewire was advanced through the guide catheter to lesion in the prox Circ. Inflation number : 1 A MDT HAY EUPHORA RX [id number] BALLOON was prepped and advanced across the Prox CX , then inflated to 12 BERONICA for 0:19 seconds. Inflation number: 2 The MDT HAY EUPHORA RX [id number] BALLOON was reinflated across the Prox CX, to 12 BERONICA for 0:16 seconds. Balloon out. Results checked. Inflation Number : 3 Gabriel Kumar WILLIE 3.0X26 ROHAN -Lot Number# [id number] prepped and advanced across the Prox CX. The stent was deployed at 12 BERONICA for 0:19 seconds. Exp. . Wire out. Results checked. Guide catheter out. ACT drawn. Results Out of range high. A TR Band was successful obtaining hemostatsis at the Right Radial artery insertion site. Physician scrubbed out. TR band placed. Hemostasis obtained. Post Procedure: Pulses reassessed and unchanged. PERRLA. Strong, equal hand death clearance coordinator bilaterally. No VTE prophylaxis required. Medication's Wasted: Lidocaine 1% = 2 mL. Medication's Wasted: Nitro = 49.8 mg. Medication's Wasted: Other = Fentanyl 50mcg. Total IV fluids: 43 mL. Complications: none. Post-op diagnosis: S/P PCI of the Prox CX. Estimated blood loss: 5mL-10mL. Responsiveness - Normal response to verbal stimuli; alert and oriented, PERRLA. Airway - Unaffected, no intervention required; spontaneous ventilation. Circulation: W/N/L, pulses unchanged. Nausea/Vomiting: No. Procedure completed. Patient transferred by wheelchair to 1st floor. Vital chart was stopped. Access Site Site: Right Radial artery Sheath Size: 6 Fr Hemostasis Method: TR Band Hemostasis Success: Successful Procedure Medications Start: 10:27 AM Stop: 10:27 AM Medication: Versed Amount: 1 mg Route: I.V. Start: 10:28 AM Stop: 10:28 AM Medication: Fentanyl Amount: 50 mcg Route: I.V. Start: 10:35 AM Stop: 10:35 AM Medication: Nitrogylcerin Amount: 200 mcg Route: I.A. Start: 10:36 AM Stop: 10:36 AM Medication: Heparin Amount: 5000 units Route: I.V. Start: 10:38 AM Stop: 10:38 AM Medication: Versed Amount: 1 mg Route: I.V. Start: 10:46 AM Stop: 10:46 AM Medication: Heparin Amount: 6000 units Route: I.V. Start: 11:00 AM Stop: 11:00 AM Medication: Plavix Amount: 300 mg Route: P.O. I, the attending physician, have reviewed and verified all procedure medications. Yes, all medications given per verbal order History/Risk Factors Hypertension: Yes Dyslipidemia: No Peripheral Arterial Disease (PAD): No Myocardial Infarction (AZ): Yes Obesity: No Renal Disease: No Tobacco Use: Never Prior Interventions PCI: Yes CABG: No Valve Surgery: No Date of PCI: 10/30/2013 Report Signatures Finalized by Kwan Shah MD on 11/19/2022 04:52 PM
--- NOTE | 2022-11-12 11:24 | P.PN_ITS ---
Subjective Subjective: Status post angiogram stent in left circumflex Hold Coreg Discharge plan tomorrow Vitals/I&O/Wt Last Vital Signs Temp 97.9 F 11/12/22 08:00 Pulse 60 11/12/22 08:00 Resp 19 H 11/12/22 08:00 BP 131/75 11/12/22 08:00 Pulse Ox 94 11/12/22 08:00 O2 Del Method Room Air 11/12/22 08:00 11/11/22 11/12/22 11/12/22 22:59 06:59 14:59 Intake Total 696.25 / 696.25 Output Total 200 / 200 Balance 496.25 / 496.25 Weight last 48 hrs Weight 111.13 kg Physical Exam Narrative: Hemodynamic stable S1, S2 Pleasant cooperative GCS 15 abdomen soft Family at the bedside Currently on room air Data 11/12/22 04:37 11/12/22 04:37 A&P Assessment and plan (1) Unstable angina pectoris: Plan Status post stent in left circumflex Plan to watch him for next 24 hours for any arrhythmias Continue aspirin, Plavix and high-dose statins We will add lisinopril at the time of discharge Hold Coreg Plan to discharge tomorrow Cardiac diet Full code Attestations Medical Necessity Statement*: niesha [place] Coding Level of Care Code 67365 Moderate MDM includes number and complexity of problems actively addressed during encounter, amount and/or complexity of data reviewed/ordered and described risk of complication, morbidity or mortality of management as docume nted Diagnoses Unstable angina pectoris I20.0
--- NOTE | 2022-11-12 11:24 | W.PM.OPSUD ---
Surgery/Procedure H&P Update DATE OF PROCEDURE: November 12, 2022 DATE H&P PERFORMED: 11/11/22 H&P UPDATE INFORMATION: I have reviewed H&P completed within last 30 days, I have examined patient prior to procedure and No changes to prior documentation PREOP DIAGNOSIS: Worsening angina PRIMARY INDICATION FOR PROCEDURE: Worsening angina PLANNED PROCEDURE: Left heart cath with possible percutaneous coronary intervention PATIENT REASSESSED PRIOR TO SEDATION, WITH NO CHANGE NOTED: Yes PHYSICAL EXAM: alert, oriented x 3, clear to auscultation bilaterally and regular rate & rhythm AIRWAY EVAL/ANESTHESIA PLAN: normal airway, ASA III, Local Anesthesia, Risks, benefits & alternatives of sedation and/or procedure discussed and Patient agrees to continue as planned ADDITIONAL INFORMATION: Moderate sedation
--- NOTE | 2022-11-12 11:25 | PM.PN ---
Subjective Subjective: Patient is overall stable. 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 He underwent successful revascularization of proximal circumflex artery with 1 stent. Vitals/I&O/Wt Last Vital Signs Temp 97.9 F 11/12/22 08:00 Pulse 60 11/12/22 08:00 Resp 19 H 11/12/22 08:00 BP 131/75 11/12/22 08:00 Pulse Ox 94 11/12/22 08:00 O2 Del Method Room Air 11/12/22 08:00 11/11/22 11/12/22 11/12/22 22:59 06:59 14:59 Intake Total 696.25 / 696.25 Output Total 200 / 200 Balance 496.25 / 496.25 Weight last 48 hrs Weight 245 lb Physical Exam Narrative: GENERAL: Patient is alert, awake and oriented x3. [] NECK: No jugular vein distension. [] HEENT: No cyanosis. No icterus. No pallor. [] HEART: Regular S1 and S2. No murmur, rub or gallop. [] LUNGS: Clear to auscultate bilaterally. [] CENTRAL NERVOUS SYSTEM: Grossly nonfocal. [] EXTREMITIES: Lower extremities with 1+ edema bilaterally. Pulses palpable in the lower extremities, both dorsalis pedis and posterior tibial. [] Data 11/12/22 04:37 11/12/22 04:37 A&P Assessment and plan (1) Unstable angina pectoris: (2) Type 2 diabetes mellitus, without long-term current use of insulin: (3) CAD (coronary artery disease): (4) GERD (gastroesophageal reflux disease): Qualifiers: Esophagitis presence: without esophagitis Qualified Code(s): K21.9 - Gastro-esophageal reflux disease without esophagitis Plan Patient's coronary angiogram revealed severe proximal LCx stenosis that underwent successful revascularization with 1 stent. LAD CAMPGROUND CARETAKER with collaterals from RCA. RCA has moderate proximal stenosis. Echocardiogram is of limited quality. Grossly LV systolic function is moderate to severely reduced. Continue aspirin and Plavix. Thank you for involving us with care of this patient. We will continue to follow. Please call with questions. Attestations Medical Necessity Statement*: Care expected to cross 2 midnights. Coding Level of Care Code Acute Code for Chg Fwd Diagnoses Unstable angina pectoris I20.0 Type 2 diabetes mellitus, without long-term current use of insulin E11.9 CAD (coronary artery disease) I25.10 GERD (gastroesophageal reflux disease) K21.9 Esophagitis presence: without esophagitis
[2022-11-12] MEDS: acetaminophen 500 mg Tablet PO ×2 (11:29→20:16)
[2022-11-12 11:51] LABS: Thyroid Stimulating Hormone 2.65 uIU/mL (0.27-4.20)
--- NOTE | 2022-11-12 14:40 | PC.NURSE ---
TR band removed at 1430. No hematoma noted. Patient resting in bed.
[2022-11-12] MEDS: clopidogrel 75 mg Tablet PO (20:16)
[2022-11-12] MEDS: aspirin 81 mg EC Tablet PO (20:16)
[2022-11-13 03:04] LABS: Basophils % 0.7 %; Eosinophils # 0.3 10^3/uL (0.0-0.8); Eosinophils % 4.3 %; Hematocrit 42.7 % (42.0-52.0); Hemoglobin 14.6 g/dL (11.7-16.6); Lymphocytes # 2.6 10^3/uL (0.8-4.8); Lymphocytes % 44.3 %; Mean Corpuscular HGB Conc 34.2 g/dL (30.0-36.0); Mean Corpuscular Hemoglobin 31.4 pg (28.0-34.0); Mean Corpuscular Volume 91.8 fl (80-94); Mean Platelet Volume 11.1 fL (7.4-10.4); Monocytes # 0.5 10^3/uL (0.2-0.9); Monocytes % 8.3 %; Neutrophils # 2.42 10^3/uL (1.8-7.7); Neutrophils % 42.1 %; Nucleated Red Blood Cells % 0 %; Platelet Count 142 10^3/cmm (130-400); Red Blood Count 4.65 10^6/uL (4.1-5.3); Red Cell Distribution Width 12.6 % (12.1-15.1); White Blood Count 5.8 10^3/uL (4.0-10.0)
[2022-11-13 03:29] LABS: Anion Gap 12.2 (5-19); Blood Urea Nitrogen 12 mg/dL (8-23); Calcium 8.5 mg/dL (8.5-10.5); Carbon Dioxide 26 mmol/L (22-29); Chloride 106 mmol/L (98-107); Glucose 126 mg/dL (65-115); Osmolality Calculated 291 mOsm/kg (285-295); Potassium 4.2 mmol/L (3.5-5.1); Sodium 140 mmol/L (136-145)
[2022-11-13 05:36] VITALS: PULSE 59
[2022-11-13] MEDS: pantoprazole DR 40 mg Tablet PO (06:12)
[2022-11-13 07:24] VITALS: PULSE 57; RESP 16; O2SAT 97
[2022-11-13 08:00] VITALS: BP 142/60; PULSE 64; RESP 17; TEMP 36.7; O2SAT 96
--- NOTE | 2022-11-13 08:00 | PM.PN ---
Subjective Subjective: Patient is feeling well. no chest pain. he had successful revascularization of proximal left circumflex artery with 1 stent. Vitals/I&O/Wt Last Vital Signs Temp 98.2 F 11/12/22 20:00 Pulse 57 L 11/13/22 07:24 Resp 16 11/13/22 07:24 BP 141/77 11/12/22 20:00 Pulse Ox 97 11/13/22 07:24 O2 Del Method Room Air 11/13/22 07:24 11/12/22 11/13/22 11/13/22 22:59 06:59 14:59 Intake Total 1827.917 / 2067.917 Output Total 275 / 275 Balance 1552.917 / 1792.917 Weight last 48 hrs Weight 245 lb Physical Exam Narrative: GENERAL: Patient is alert, awake and oriented x3. [] NECK: No jugular vein distension. [] HEENT: No cyanosis. No icterus. No pallor. [] HEART: Regular S1 and S2. No murmur, rub or gallop. [] LUNGS: Clear to auscultate bilaterally. [] CENTRAL NERVOUS SYSTEM: Grossly nonfocal. [] EXTREMITIES: Lower extremities with 1+ edema bilaterally. Pulses palpable in the lower extremities, both dorsalis pedis and posterior tibial. [] Data 11/13/22 02:28 11/13/22 02:28 A&P Assessment and plan (1) Unstable angina pectoris: (2) Type 2 diabetes mellitus, without long-term current use of insulin: (3) CAD (coronary artery disease): (4) GERD (gastroesophageal reflux disease): Qualifiers: Esophagitis presence: without esophagitis Qualified Code(s): K21.9 - Gastro-esophageal reflux disease without esophagitis Plan Patient is overall stable. No further chest pain episodes Continue current medications including aspirin and Plavix. Thank you for involving us with care of this patient. Please call with questions. Attestations Medical Necessity Statement*: Care expected to cross 2 midnights. Coding Level of Care Code Acute Code for g Fwd Diagnoses Unstable angina pectoris I20.0 Type 2 diabetes mellitus, without long-term current use of insulin E11.9 CAD (coronary artery disease) I25.10 GERD (gastroesophageal reflux disease) K21.9 Esophagitis presence: without esophagitis
[2022-11-13] MEDS: carvedilol 3.125 mg Tablet PO (08:31)
[2022-11-13] MEDS: losartan 50 mg Tablet 25 MG PO (08:31)
--- NOTE | 2022-11-13 09:08 | PM.DCS ---
Discharge Providers Date of Admission: 11/11/22 13:10 Date of Discharge: November 13, 2022 Attending Provider at Admission: Leticia Stephen MD Attending Provider at Discharge: Leticia Stephen MD Primary Care Provider: Renate Trevizo DO Diagnoses at Discharge Discharge Diagnosis (1) Unstable angina pectoris: Status: Acute (2) Type 2 diabetes mellitus, without long-term current use of insulin: Status: Acute (3) BPH with obstruction/lower urinary tract symptoms: Status: Acute Reason for Visit Reason for Visit: chest pain for three days, pressure down arms Hospital Course Hospital Course 77-year-old male with history of established coronary disease, previous stress test did show teresa-infarct ischemia that was done in 2021, Nitropaste was put on however at the time of my evaluation patient was chest pain-free with stable hemodynamics heart rate in 50s, discontinued Coreg, cardiology was consulted for diagnostic angiogram, Dr. Shah consulted. D-dimer unremarkable, troponin and EKG not consistent with acute ischemic related changes. Heart rate remained around 60s with stable hemodynamics. TSH was checked as well. Coronary angiogram report: Patient has severe proximal left circumflex stenosis status post PCI with 1 stent has complete occlusion of LAD, dual antiplatelet therapy along statins added lisinopril Physical Exam Narrative: Well-built male S1, S2 Heart rate in 60s Hemodynamic stable GCS 15 Nonfocal neuro exam Abdomen soft Currently doing well on room air Family is at the bedside Discharge Data Studies Completed and Pending Completed Studies During Hospitalization Category Date Time Status XR chest 1V portable [id number] Stat Exams 11/11/22 09:15 Completed CV. 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 Laboratory Results WBC 6.3 10^3/uL (4.0-10.0) 11/12/22 04:37 RBC 4.75 10^6/uL (4.1-5.3) 11/12/22 04:37 Hgb 14.7 g/dL (11.7-16.6) 11/12/22 04:37 Hct 43.5 % (42.0-52.0) 11/12/22 04:37 MCV 91.6 fl (80-94) 11/12/22 04:37 MCH 30.9 pg (28.0-34.0) 11/12/22 04:37 MCHC 33.8 g/dL (30.0-36.0) 11/12/22 04:37 RDW 12.4 % (12.1-15.1) 11/12/22 04:37 Plt Count 132 10^3/cmm (130-400) 11/12/22 04:37 MPV 11.4 fL (7.4-10.4) H 11/12/22 04:37 Neut % (Auto) 39.0 % 11/12/22 04:37 Lymph % (Auto) 47.1 % 11/12/22 04:37 [place] % (Auto) 9.1 % 11/12/22 04:37 Eos % (Auto) 3.7 % 11/12/22 04:37 Baso % (Auto) 0.6 % 11/12/22 04:37 Neut # (Auto) 2.46 10^3/uL (1.8-7.7) 11/12/22 04:37 Lymph # (Auto) 3.0 10^3/uL (0.8-4.8) 11/12/22 04:37 [place] # (Auto) 0.6 10^3/uL (0.2-0.9) 11/12/22 04:37 Eos # (Auto) 0.2 10^3/uL (0.0-0.8) 11/12/22 04:37 Baso # (Auto) 0.0 10^3/uL (0.0-0.1) 11/12/22 04:37 Nucleated RBC % (auto) 0 % 11/12/22 04:37 Nucleated RBCs # 0.0 /100WBC 11/12/22 04:37 D-Dimer 0.37 ug/mIFEU (0-0.59) 11/11/22 14:27 Sodium 141 mmol/L (136-145) 11/12/22 04:37 Potassium 4.3 mmol/L (3.5-5.1) 11/12/22 04:37 Chloride 107 mmol/L (98-107) 11/12/22 04:37 Carbon Dioxide 25 mmol/L (22-29) 11/12/22 04:37 Anion Gap 13.3 (5-19) 11/12/22 04:37 BUN 15 mg/dL (8-23) 11/12/22 04:37 Creatinine 1.0 mg/dL (0.7-1.2) 11/12/22 04:37 GFR Calculation Not Reportable 11/12/22 04:37 Glucose 134 mg/dL (65-115) H 11/12/22 04:37 POC Glucose 131 mg/dL (70-110) H 11/12/22 06:12 Calculated Osmolality 295 mOsm/kg (285-295) 11/12/22 04:37 Calcium 8.4 mg/dL (8.5-10.5) L 11/12/22 04:37 Magnesium 1.6 mg/dL (1.7-2.3) L 11/12/22 04:37 Total Bilirubin 0.4 mg/dL (0.15-1.2) 11/11/22 09:23 AST 15 U/L (0-40) 11/11/22 09:23 ALT 22 U/L (0-41) 11/11/22 09:23 Alkaline Phosphatase 67 U/L (40-130) 11/11/22 09:23 Troponin T Baseline 14 ng/L (0-15) 11/11/22 09:23 Troponin T 120 Minute 12.24 ng/L (0-15) 11/11/22 11:27 Delta Troponin T -1.76 ABS# (0-10) L 11/11/22 11:27 C-Reactive Protein 3.0 mg/L (0.0-4.9) 11/12/22 04:37 NT-Pro-B Natriuret Pep 265 pg/mL (0-450) 11/11/22 09:23 Total Protein 6.5 g/dL (6.6-8.7) L 11/11/22 09:23 Albumin 3.9 g/dL (3.5-5.2) 11/11/22 09:23 Globulin 2.6 g/dL (1.3-4.6) 11/11/22 09:23 Vitals Last Vital Signs Temp 97.9 F 11/12/22 08:00 Pulse 60 11/12/22 08:00 Resp 19 H 11/12/22 08:00 BP 131/75 11/12/22 08:00 Pulse Ox 94 11/12/22 08:00 O2 Del Method Room Air 11/12/22 08:00 Discharge Plan Discharge Patient Disposition: Home Condition: Stable Prescriptions: New atorvastatin 40 mg tablet 40 mg PO DAILY Qty: 60 0RF lisinopril 10 mg tablet 10 mg PO DAILY Qty: 60 0RF Continued Unisom (doxylamine) 25 mg tablet 12.5 mg PO BEDTIME@2100 Nitrostat 0.4 mg Tablet, Sublingual 0.4 mg SUBLINGUAL Q5M PRN (Reason: Chest Pain) Rx Instructions: do not exceed 3 doses per episode melatonin 10 mg Tablet 10 mg PO BEDTIME PRN (Reason: Sleep) lansoprazole 30 mg capsule,delayed release(DR/EC) 30 mg PO DAILY@0630 aspirin [Adult Aspirin Regimen] 81 mg tablet,delayed release (DR/EC) 81 mg PO BEDTIME@2100 Qty: 60 0RF Changed clopidogrel 75 mg tablet 75 mg PO BEDTIME@2100 Qty: 60 0RF Discontinued Hood Back and Body 500-32.5 mg Tablet 1 tab PO BID PRN (Reason: Pain) carvedilol 3.125 mg tablet 3.125 mg PO BID@0630,2100 Discharge Orders: Discharge Order (Routine); Ordered 11/13/22 Ordered By: Leticia Stephen Referrals: Kwan Shah M.D [Physician] - (Your follow up appointment with Dr. Shah will be scheduled while you are at your Adura Sargent appointment. Thank you.) Renate Trevizo DO [Primary Care Provider] - 2 weeks Audra Sargent FNP [Nurse Practitioner] - 11/20/22 10:15 am Discharge Diet: Diabetic Patient Instructions: Lisinopril (By mouth) (Prinivil, Zestril), Atorvastatin (By mouth) (Lipitor, Atorvaliq), Clopidogrel (By mouth) (Plavix), Opioid Safety Discharge Attestations Time Spent in Discharge Care*: greater than 30 min Quality Metrics Clinical Quality Measures [ No reported AMI, CVA or VTE this stay] Coding Level of Care Code Acute Code for g Fwd Diagnoses Unstable angina pectoris I20.0 Type 2 diabetes mellitus, without long-term current use of insulin E11.9 BPH with obstruction/lower urinary tract symptoms N40.1; N13.8
== END 2022-11-13 11:42 | disposition home or self-care (01) ==
LOC: ER 11:50 → CSU 13:11
PROVIDERS: Internal Medicine; Physician Assistant; Admitting Provider Internal Medicine; Emergency Provider Family Medicine; PCP Family Medicine; Visit Provider Internal Medicine
DX: I25.110 Atherosclerotic heart disease of native coronary artery with unstable angina pectoris (principal); Z79.82 Long term (current) use of aspirin; R00.1 Bradycardia, unspecified; I44.0 Atrioventricular block, first degree; I44.7 Left bundle-branch block, unspecified; E11.9 Type 2 diabetes mellitus without complications; Z79.02 Long term (current) use of antithrombotics/antiplatelets; I25.82 Chronic total occlusion of coronary artery; I10 Essential (primary) hypertension
CPT/HCPCS: 36415; 36416; 71045; 80048; 80053; 82962; 83735; 83880; 84443; 84484; 85025; 85347; 85378; 86140; 93005; 93306; 93458; 96360; 96361; 96372; 99152; 99153; 99285; C1725; C1769; C1874; C1887; C1894; C9600; G0378; J1644; J1650; J2250; J3010; J3490; J7030; Q0163; Q9967

== ENCOUNTER 2022-11-15 09:36 | Emergency (ER) | payer MEDICARE, OTHER, SELFPAY ==
--- NOTE | 2022-11-15 09:38 | XRR_ITS ---
PROCEDURE INFORMATION: Exam: XR Chest Exam date and time: 11/15/2022 9:51 AM Age: 77 years old Clinical indication: Pain; Angina pectoris; Prior surgery; Surgery date: <1 month; Surgery type: Stents; Additional info: Chest pain TECHNIQUE: Imaging protocol: Radiologic exam of the chest. Views: 1 view. COMPARISON: CR XR chest 1V portable [id number] 11/11/2022 9:35 AM FINDINGS: Lungs: Mild linear scarring versus subsegmental atelectasis at the left lung base. No consolidation. Pleural spaces: Unremarkable. No pleural effusion. No pneumothorax. Heart/Mediastinum: Unremarkable. No cardiomegaly. Bones/joints: Degenerative changes along the spine and acromioclavicular joints. XR/XR chest 1V portable [id number] IMPRESSION: No acute findings.
--- NOTE | 2022-11-15 09:43 | ECG_ITS ---
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 Measurements Intervals [place] Rate: 62 P: 13 CA: 222 QRS: -26 QRSD: 160 T: 148 QT: 464 QTc: 473 Interpretive Statements SINUS RHYTHM WITH FIRST DEGREE AV BLOCK LEFT BUNDLE BRANCH BLOCK [120+ ms QRS DURATION, 80+ ms Q/S IN V1/V2, 85+ ms R IN I/aVL/V5/V6] Compared to ECG 11/11/2022 15:02:36 Left bundle-branch block now present Sinus bradycardia no longer present Intraventricular conduction delay no longer present Electronically Signed On 11-17-2022 8:34:32 CDT by Kwan Shah M.D. [id number]
[2022-11-15 09:44] VITALS: BP 164/83; PULSE 64; RESP 12; TEMP 36.6; O2SAT 96
--- NOTE | 2022-11-15 09:44 | W.ED.CHESTPA ---
HPI - Chest Pain General: Chief Complaint: Chest Pain Stated Complaint: Pressure on Chest Time Seen by Provider: 11/15/22 09:40 Source: patient Mode of arrival: ambulatory History of Present Illness: 77-year-old male who was seen earlier this week with escalating angina who was admitted and had an angiogram. Approximately a year ago patient had a stress test that was positive however he was not having any further symptoms of decided that time to just treat medically unless he had increasing symptoms when he presented a few days ago to the emergency room he began to experience classic cardiac symptoms while at rest. His cardiac enzymes were negative but when he reviewed the chart found his previous stress test I discussed with Dr. Graves and Star recommended admission for angiogram. According to the hospital notations from that visit patient had a Significant stenosis of the proximal left circumflex. Moderate RCA stenosis and a totally occluded LAD with collaterals from the RCA. He received a single stent in the proximal circumflex. Echo showed global dyskinesia. With moderate to severely reduced systolic function. Since going home patient states he just generally not felt well he said a little swelling in extremities he is complained of some mild dull chest pain that is continued. He has not noticed anything that exacerbates or relieves it he states he has been regularly taking his Plavix has not missed any doses. Initial EKG shows a left bundle branch block however this was present over a year ago was not new at the previous visit or at today's visit. MD complaint: chest pain Pertinent past history: coronary artery disease Timing of current episode: episodic Onset: during rest Pain location: left chest Pain radiation: none Severity: mild Quality: aching and heaviness Relieving factors: nothing Exacerbating factors: nothing Associated symptoms: Reports diaphoresis, dyspnea and leg edema; Deny abdominal pain, fever(s), nausea, palpitations or vomiting Treatment prior to arrival: none Risk Factors: Coronary artery disease risk factors: diabetes, smoking history, hyperlipidemia and hypertension Review of Systems Const: Reports: diaphoresis; Denies: fever(s), chills, fatigue or malaise ENMT: Denies: throat pain, ear or mastoid pain, nasal discharge or nasal congestion Card: Reports: chest pain, edema and dyspnea on exertion; Denies: palpitations, irregular heart rhythm or orthopnea Resp: Reports: dyspnea GI: Denies: abdominal pain, nausea, vomiting, hematemesis, coffee ground emesis, diarrhea, constipation, bloating, hematochezia or melena : Denies: flank pain, dysuria, urinary frequency or urinary urgency Musc: Denies: neck pain or back pain Skin/Breast: Denies: rash or pruritus PFSH ED PFSH: Medical History BPH with obstruction/lower urinary tract symptoms CAD (coronary artery disease) Chronic neck pain Chronic prostatitis Diverticulitis of sigmoid colon History of colon polyps History of ME (myocardial infarction) Type 2 diabetes mellitus, without long-term current use of insulin Surgical History H/O circumcision H/O colonoscopy (01/17/20) descending colon polyp and sigmoid diverticulitis H/O knee surgery History of hemorrhoidectomy Status post appendectomy Status post coronary angioplasty Family History Father , at age 92-heart trouble No problems noted. Mother , AT AGE 88-[place] No problems noted. Other CAD (coronary artery disease) Cancer Diabetes Hypertension Denies family history of Anesthesia complication Bleeding disorder Social History Smoking and tobacco status: never smoked Alcohol intake: current Alcohol intake frequency: 0-2 Drinks per Day Substance/Drug Use: never Household members: spouse Marital status: Current occupational status: retired Physical Exam Const: GENERAL APPEARANCE: cooperative and comfortable ORIENTATION/CONSCIOUSNESS: Yes awake, Yes oriented to person, Yes oriented to place and Yes oriented to time HENMT: COMMON NORMALS: normocephalic, atraumatic and hearing grossly normal bilaterally HEAD & SCALP: normocephalic and atraumatic Resp: COMMON NORMALS: normal respiratory effort, No retractions, No use of accessory muscles and clear to auscultation bilaterally AUSCULTATION: clear to auscultation bilaterally Cardio: COMMON NORMALS: regular rate, regular rhythm and No murmurs present (Cardio) RATE: regular rate RHYTHM: regular rhythm GI: COMMON NORMALS: Soft to palpation and No hepatosplenomegaly present AUSCULTATION: Yes normoactive bowel sounds PALPATION: Yes Soft to palpation, No Tenderness to palpation present (GI), No Guarding due to palpation present (GI) and Yes No hepatosplenomegaly present Extremity: COMMON NORMALS: normal to inspection, capillary refill normal and no calf tenderness GENERAL: Yes edema Neuro: SENSORIUM/ORIENTATION: Yes oriented to person, Yes oriented to place and Yes oriented to time Skin: COMMON NORMALS: no rashes or lesions noted GENERAL SKIN EXAM: no rashes or lesions noted Course Vital Signs: Vital signs: Vital Signs Temperature 97.8 F 11/15/22 09:44 Pulse Rate 57 L 11/15/22 12:30 Respiratory Rate 19 H 11/15/22 12:30 Blood Pressure 147/93 11/15/22 12:30 Pulse Oximetry 96 11/15/22 12:30 Oxygen Delivery Me thod Room Air 11/15/22 12:30 MDM - Chest Pain Medical Decision Making EKG shows left bundle branch block which was present previously. Troponins are negative and there is no acute EKG changes. He did have complete relief of symptoms with application of the topical nitro. I discussed Dr. Baker is on-call for cardiology he reviewed the films. He does not feel that the proximal RCA lesion at this point warrants return to the [facility]. He does recommend Ranexa 500 twice daily and isosorbide mononitrate 30 mg daily. Patient's blood pressure should tolerate this. We will discharge patient home on these medications and encouraged the patient to return if he has any change of symptoms or new concerning symptoms. He should follow-up with Dr. Shah early next week. Medical Records I reviewed the patient's medical records. Lab Data I reviewed the patient's lab results. 11/15/22 10:00 11/15/22 10:00 Radiology Impressions Chest X-Ray 11/15/22 09:38 IMPRESSION: No acute findings. Laboratory Results WBC 6.7 10^3/uL (4.0-10.0) 11/15/22 10:00 RBC 5.05 10^6/uL (4.1-5.3) 11/15/22 10:00 Hgb 15.8 g/dL (11.7-16.6) 11/15/22 10:00 Hct 46.7 % (42.0-52.0) 11/15/22 10:00 MCV 92.5 fl (80-94) 11/15/22 10:00 MCH 31.3 pg (28.0-34.0) 11/15/22 10:00 MCHC 33.8 g/dL (30.0-36.0) 11/15/22 10:00 RDW 12.7 % (12.1-15.1) 11/15/22 10:00 Plt Count 142 10^3/cmm (130-400) 11/15/22 10:00 MPV 10.7 fL (7.4-10.4) H 11/15/22 10:00 Neut % (Auto) 53.3 % 11/15/22 10:00 Lymph % (Auto) 33.8 % 11/15/22 10:00 [place] % (Auto) 7.7 % 11/15/22 10:00 Eos % (Auto) 3.9 % 11/15/22 10:00 Baso % (Auto) 0.7 % 11/15/22 10:00 Neut # (Auto) 3.57 10^3/uL (1.8-7.7) 11/15/22 10:00 Lymph # (Auto) 2.3 10^3/uL (0.8-4.8) 11/15/22 10:00 [place] # (Auto) 0.5 10^3/uL (0.2-0.9) 11/15/22 10:00 Eos # (Auto) 0.3 10^3/uL (0.0-0.8) 11/15/22 10:00 Baso # (Auto) 0.1 10^3/uL (0.0-0.1) 11/15/22 10:00 Nucleated RBC % (auto) 0 % 11/15/22 10:00 Nucleated RBCs # 0.0 /100WBC 11/15/22 10:00 Sodium 136 mmol/L (136-145) 11/15/22 10:00 Potassium 4.3 mmol/L (3.5-5.1) 11/15/22 10:00 Chloride 102 mmol/L (98-107) 11/15/22 10:00 Carbon Dioxide 24 mmol/L (22-29) 11/15/22 10:00 Anion Gap 14.3 (5-19) 11/15/22 10:00 BUN 15 mg/dL (8-23) 11/15/22 10:00 Creatinine 1.1 mg/dL (0.7-1.2) 11/15/22 10:00 GFR Calculation Not Reportable 11/15/22 10:00 Glucose 167 mg/dL (65-115) H 11/15/22 10:00 Calculated Osmolality 287 mOsm/kg (285-295) 11/15/22 10:00 Calcium 8.7 mg/dL (8.5-10.5) 11/15/22 10:00 Total Bilirubin 0.3 mg/dL (0.15-1.2) 11/15/22 10:00 AST 21 U/L (0-40) 11/15/22 10:00 ALT 32 U/L (0-41) 11/15/22 10:00 Alkaline Phosphatase 71 U/L (40-130) 11/15/22 10:00 Troponin T Baseline 20 ng/L (0-15) H 11/15/22 10:00 Troponin T 120 Minute 19.31 ng/L (0-15) H 11/15/22 11:53 Delta Troponin T -0.69 ABS# (0-10) L 11/15/22 11:53 NT-Pro-B Natriuret Pep 244 pg/mL (0-450) 11/15/22 10:00 Total Protein 6.7 g/dL (6.6-8.7) 11/15/22 10:00 Albumin 4.1 g/dL (3.5-5.2) 11/15/22 10:00 Globulin 2.6 g/dL (1.3-4.6) 11/15/22 10:00 Discharge Plan Discharge Patient Disposition: Home Clinical Impression: Angina at rest, CAD (coronary artery disease) Condition: Stable Prescriptions: New isosorbide mononitrate 30 mg tablet extended release 24 hr 30 mg PO DAILY Qty: 30 0RF ranolazine 500 mg tablet extended release 12 hr 500 mg PO BID Qty: 60 0RF No Action nitroglycerin [Nitrostat] 0.4 mg Tablet, Sublingual 0.4 mg SUBLINGUAL Q5M PRN (Reason: Chest Pain) Rx Instructions: do not exceed 3 doses per episode melatonin 10 mg Tablet 10 mg PO BEDTIME PRN (Reason: Sleep) lansoprazole 30 mg capsule,delayed release(DR/EC) 30 mg PO DAILY@0630 atorvastatin 40 mg tablet 40 mg PO DAILY Qty: 60 0RF lisinopril 10 mg tablet 10 mg PO DAILY Qty: 60 0RF carvedilol 3.125 mg Tablet 3.125 mg PO BID Qty: 60 0RF clopidogrel 75 mg tablet 75 mg PO BEDTIME@2100 Qty: 60 3RF aspirin [Adult Aspirin Regimen] 81 mg tablet,delayed release (DR/EC) 81 mg PO BEDTIME@2100 Qty: 60 4RF Unisom (doxylamine) 25 mg Tablet 25 mg PO BEDTIME Discharge Orders: Discharge ED (Routine); Ordered 11/15/22 Ordered By: Moiz Abdalla Referrals: Renate Trevizo DO [Primary Care Provider] - Discharge Diet: Usual diet Discharge Activity: Limit activity as instructed Patient Instructions: Opioid Safety, Pain Management Activity Restrictions/Additional Instructions: You are seen today for continued chest pain. After reviewing your history and the films from the angiogram earlier this week cardiology recommended that we start you on isosorbide mononitrate and ranolazine. You were given the first dose of the isosorbide in the emergency room. You should contact Dr. Fernandez office and to help arrange for follow-up next week. 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
[2022-11-15] MEDS: aspirin 81 mg Chew Tablet 324 MG PO (09:53)
[2022-11-15 09:54] VITALS: BP 164/83; PULSE 69
[2022-11-15] MEDS: nitroglycerin 1 gm/inch oint Pkt 1 INCH TOPICAL (09:54)
[2022-11-15 10:10] LABS: Basophils # 0.1 10^3/uL (0.0-0.1); Basophils % 0.7 %; Eosinophils # 0.3 10^3/uL (0.0-0.8); Eosinophils % 3.9 %; Hematocrit 46.7 % (42.0-52.0); Hemoglobin 15.8 g/dL (11.7-16.6); Lymphocytes # 2.3 10^3/uL (0.8-4.8); Lymphocytes % 33.8 %; Mean Corpuscular HGB Conc 33.8 g/dL (30.0-36.0); Mean Corpuscular Hemoglobin 31.3 pg (28.0-34.0); Mean Corpuscular Volume 92.5 fl (80-94); Mean Platelet Volume 10.7 fL (7.4-10.4); Monocytes # 0.5 10^3/uL (0.2-0.9); Monocytes % 7.7 %; Neutrophils # 3.57 10^3/uL (1.8-7.7); Neutrophils % 53.3 %; Nucleated Red Blood Cells % 0 %; Platelet Count 142 10^3/cmm (130-400); Red Blood Count 5.05 10^6/uL (4.1-5.3); Red Cell Distribution Width 12.7 % (12.1-15.1); White Blood Count 6.7 10^3/uL (4.0-10.0)
[2022-11-15 10:14] VITALS: BP 147/74; PULSE 60; O2SAT 96
[2022-11-15 10:34] LABS: Troponin(5th) Baseline 20 ng/L (0-15)
[2022-11-15 10:47] LABS: Alanine Aminotransferase 32 U/L (0-41); Albumin Level 4.1 g/dL (3.5-5.2); Alkaline Phosphatase 71 U/L (40-130); Aspartate Amino Transferase 21 U/L (0-40); Blood Urea Nitrogen 15 mg/dL (8-23); Calcium 8.7 mg/dL (8.5-10.5); Carbon Dioxide 24 mmol/L (22-29); Chloride 102 mmol/L (98-107); Globulin 2.6 g/dL (1.3-4.6); Glucose 167 mg/dL (65-115); NT Pro B Type Natriuretic Pept 244 pg/mL (0-450); Osmolality Calculated 287 mOsm/kg (285-295); Sodium 136 mmol/L (136-145); Total Bilirubin 0.3 mg/dL (0.15-1.2); Total Protein 6.7 g/dL (6.6-8.7)
[2022-11-15 10:51] LABS: Anion Gap 14.3 (5-19); Potassium 4.3 mmol/L (3.5-5.1)
[2022-11-15 11:30] VITALS: BP 131/84; PULSE 59; RESP 22; O2SAT 95
--- NOTE | 2022-11-15 11:48 | ECG_ITS ---
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 Measurements Intervals [place] Rate: 55 P: -19 NE: 209 QRS: -23 QRSD: 158 T: 153 QT: 472 QTc: 455 Interpretive Statements SINUS BRADYCARDIA LEFT BUNDLE BRANCH BLOCK [120+ ms QRS DURATION, 80+ ms Q/S IN V1/V2, 85+ ms R IN I/aVL/V5/V6] Compared to ECG 11/15/2022 09:43:45 Sinus rhythm no longer present First degree AV block no longer present Electronically Signed On 11-17-2022 8:38:02 CDT by Kwan Shah M.D. [id number]
[2022-11-15] MEDS: acetaminophen 500 mg Tablet 1000 MG PO (11:50)
[2022-11-15 12:24] LABS: Troponin 5 2HR 19.31 ng/L (0-15)
[2022-11-15 12:27] LABS: Troponin 5 2HR Delta -0.69 ABS# (0-10)
[2022-11-15 12:30] VITALS: BP 147/93; PULSE 57; RESP 19; O2SAT 96
[2022-11-15] MEDS: isosorbide mononitrate ER 30 mg Tablet PO (13:41)
[2022-11-15 13:51] VITALS: BP 158/82; PULSE 55; RESP 18; O2SAT 96
== END 2022-11-15 13:52 | disposition home or self-care (01) ==
PROVIDERS: Physician Assistant; Emergency Provider Family Medicine; PCP Family Medicine
DX: I25.118 Atherosclerotic heart disease of native coronary artery with other forms of angina pectoris (principal); Z79.82 Long term (current) use of aspirin; Z79.02 Long term (current) use of antithrombotics/antiplatelets; I25.2 Old myocardial infarction; E11.9 Type 2 diabetes mellitus without complications
CPT/HCPCS: 71045; 80053; 83880; 84484; 85025; 93005; 99285

== ENCOUNTER → 2022-11-18 12:52 | Outpatient (BNVA) | payer MEDICARE, OTHER, SELFPAY | PROVIDERS: PCP Family Medicine; Visit Provider Nurse Practitioner Family | DX: I25.10 Atherosclerotic heart disease of native coronary artery without angina pectoris (principal); I25.2 Old myocardial infarction | CPT/HCPCS: 99213 ==

== ENCOUNTER → 2022-12-01 15:17 | Outpatient (BNVA) | payer MEDICARE, OTHER, SELFPAY | PROVIDERS: PCP Family Medicine; Visit Provider Family Medicine | DX: E11.9 Type 2 diabetes mellitus without complications (principal) | CPT/HCPCS: 83036 ==

== ENCOUNTER → 2022-12-10 14:00 | Outpatient (BNVA) | payer MEDICARE, OTHER, SELFPAY | PROVIDERS: PCP Family Medicine; Visit Provider Nurse Practitioner Family | DX: I25.10 Atherosclerotic heart disease of native coronary artery without angina pectoris (principal); I25.2 Old myocardial infarction | CPT/HCPCS: 99213 ==

== ENCOUNTER 2023-01-01 16:12 | Inpatient (IN) | payer MEDICARE, OTHER, SELFPAY ==
[2023-01-01] VITALS (24 sets, daily range): BP systolic 90–170; BP diastolic 45–130; PULSE 93–138; RESP 15–22; O2SAT 94–100
--- NOTE | 2023-01-01 16:16 | ECG_ITS ---
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 Measurements Intervals [place] Rate: 123 P: -8 MT: 222 QRS: 66 QRSD: 170 T: -40 QT: 358 QTc: 514 Interpretive Statements SINUS TACHYCARDIA WITH FIRST DEGREE AV BLOCK Left bundle branch block Compared to ECG 11/15/2022 11:46:36 First degree AV block now present Sinus bradycardia no longer present Electronically Signed On 01-01-2023 19:26:54 CDT by Navid Beach M.D. [id number]
--- NOTE | 2023-01-01 16:23 | XRR_ITS ---
PROCEDURE INFORMATION: Exam: XR Chest Exam date and time: 01/01/2023 4:26 PM Age: 77 years old Clinical indication: Pain; Angina pectoris; Additional info: Cp TECHNIQUE: Imaging protocol: Radiologic exam of the chest. Views: 1 view. COMPARISON: CR (CHEST, ) 11/15/2022 9:51 AM FINDINGS: Tubes, catheters and devices: Endotracheal tube tip is slightly above the level of the aortic arch. The yayo is poorly visualized. Lungs: Lungs appear free of acute disease although there is a limited inspiration. Pleural spaces: Unremarkable. No pleural effusion. No pneumothorax. Heart/Mediastinum: Unremarkable. No cardiomegaly. Bones/joints: Unremarkable. XR/XR chest 1V portable [id number] IMPRESSION: 1. No acute findings. 2. Satisfactory endotracheal tube placement.
[2023-01-01] MEDS: propofol 1,000 MG/100 ML INJ 13.34 MG IV ×2 (16:28→17:08)
--- NOTE | 2023-01-01 16:29 | CTR_ITS ---
PROCEDURE INFORMATION: Exam: CT Head Without Contrast Exam date and time: 01/01/2023 4:45 PM Age: 77 years old Clinical indication: Other: Stimi, cardiac arrest TECHNIQUE: Imaging protocol: Computed tomography of the head without contrast. Radiation optimization: All CT scans at this facility use at least one of these dose optimization techniques: automated exposure control; mA and/or kV adjustment per patient size (includes targeted exams where dose is matched to clinical indication); or iterative reconstruction. REPORTING DATA: Count of CT and Cardiac NM exams in prior 12 months: This patient has received 0 known CTs and 0 known cardiac nuclear medicine studies in the 12 months prior to the current study. COMPARISON: No relevant prior studies available. RADIATION DOSE METRICS: Total DLP (mGy-cm): 1329 FINDINGS: Brain: No acute intracranial hemorrhage, cerebral edema, or midline shift. Cerebral ventricles: No hydrocephalus. Paranasal sinuses: There is no acute sinusitis. Mastoid air cells: Visualized mastoid air cells are well aerated. Orbital cavities: The visualized orbits appear unremarkable. Bones/joints: No acute fracture. Soft tissues: Unremarkable. CT/CT head wo con* [id number] IMPRESSION: No acute intracranial abnormality.
[2023-01-01 16:36] LABS: ABG PCO2 45.4 mmHg (35-45); ABG PH Result 7.28 (7.35-7.45); Alveolar-Arterial Oxygen Gradi 57.2 mmHg (5-10); Arterial Blood Gas Hematocrit 50.9 % (42-52); Base Excess ABG -5.5 mmol/L (-2.0-2.0); Blood Gas Allen Test Pos; Blood Gas Operator Identificat WALCI; Blood Gas Sample Site Radial, right; Blood Gas Sample Type Arterial; Carboxyhemoglobin 0.6 %THgb (0.4-20.1); HCO3 ABG 21.4 mmol/L (22-26); HGB O2 Sat 98.2 % (95-100); Ionized Calcium Level - ABG 1.2 mmol/L (1.1-1.4); Methemoglobin 0.4 % (0.4-1.5); Oxygen Device VENT; Oxygen Saturation ABG 99.2; Total Hemoglobin 16.6 g/dL (14-18)
[2023-01-01 16:48] LABS: Basophils # 0.1 10^3/uL (0.0-0.1); Basophils % 0.7 %; Eosinophils # 0.2 10^3/uL (0.0-0.8); Eosinophils % 2.1 %; Lymphocytes # 3.6 10^3/uL (0.8-4.8); Lymphocytes % 51.9 %; Mean Corpuscular HGB Conc 34.3 g/dL (30-55); Mean Corpuscular Hemoglobin 31.9 pg (27-33); Mean Corpuscular Volume 93.3 fl (82-101); Mean Platelet Volume 11.1 fL (7.4-10.4); Monocytes # 0.6 10^3/uL (0.2-0.9); Monocytes % 8.6 %; Neutrophils # 2.51 10^3/uL (1.8-7.7); Neutrophils % 35.8 %; Nucleated Red Blood Cells % 0 %; Platelet Count 149 10^3/cmm (157-399); Red Blood Count 5.04 10^6/uL (3.85-5.65); Red Cell Distribution Width 12.8 % (12.1-15.1)
--- NOTE | 2023-01-01 16:55 | PC.PHAR ---
VERIFIED MEDICATIONS WITH PHARMACY. 2 EXCEPTIONS FOR OTC ITEMS MELATONIN 10 MG AND DOXOLAMINE (UNISOM).
[2023-01-01 17:00] LABS: INR 1.07 (0.8-1.2)
[2023-01-01 17:14] LABS: Troponin(5th) Baseline 18 ng/L (0-15)
[2023-01-01] MEDS: heparin 5,000 unit/mL INJ 1 mL 4000 UNIT IVP (17:15)
[2023-01-01 17:16] LABS: Alanine Aminotransferase 206 U/L (0-41); Alkaline Phosphatase 78 U/L (40-130); Aspartate Amino Transferase 120 U/L (0-40); Blood Urea Nitrogen 23 mg/dL (8-23); Calcium 8.2 mg/dL (8.5-10.5); Carbon Dioxide 21 mmol/L (22-29); Chloride 103 mmol/L (98-107); Glucose 150 mg/dL (65-115); Osmolality Calculated 295 mOsm/kg (285-295); Sodium 139 mmol/L (136-145); Total Bilirubin 0.5 mg/dL (0.15-1.2)
--- NOTE | 2023-01-01 17:20 | W.ED.GENADLT ---
HPI - General Adult General: Chief complaint: Cardiac Arrest/CPR Stated complaint: cpr Time Seen by Provider: 01/01/23 16:23 Source: EMS Mode of arrival: EMS Limitations: altered mental status History of Present Illness: 77-year-old male has a history of extensive cardiac problems that lives with his and went to the store told his was not feeling well and then went down. Patient was pulseless said he is down she believes for 3 to 5 minutes most other history from EMS they are unsure downtime they state when they arrived patient was in V-fib V. tach on their machine and did cardiovert twice and gave lidocaine and had worse return of spontaneous circulation. Patient currently has an i-gel in place he is breathing on his own he is not responsive to any questioning at this time. Review of Systems General: Reports: ROS unobtainable due to mental status PFSH ED PFSH: Medical History BPH with obstruction/lower urinary tract symptoms CAD (coronary artery disease) Chronic neck pain Chronic prostatitis Diverticulitis of sigmoid colon GERD (gastroesophageal reflux disease) History of colon polyps History of ME (myocardial infarction) Type 2 diabetes mellitus, without long-term current use of insulin Unstable angina pectoris Surgical History H/O circumcision H/O colonoscopy (01/17/20) descending colon polyp and sigmoid diverticulitis H/O knee surgery History of hemorrhoidectomy Status post appendectomy Status post coronary angioplasty Family History Father , at age 92-heart trouble No problems noted. Mother , AT AGE 88-ALZHEIMERS No problems noted. Other CAD (coronary artery disease) Cancer Diabetes Hypertension Denies family history of Anesthesia complication Bleeding disorder Social History Smoking and tobacco status: never smoked Alcohol intake: current Alcohol intake frequency: 0-2 Drinks per Day Substance/Drug Use: never Household members: spouse Marital status: Current occupational status: retired Physical Exam Const: COMMON NORMALS: negative for patient oriented x3 HENMT: COMMON NORMALS: normocephalic and atraumatic HEAD & SCALP: normocephalic and atraumatic Eye: COMMON NORMALS: conjunctivae normal CONJUNCTIVA: Yes conjunctivae normal Neck/C-Spine: COMMON NORMALS: supple Chest: COMMONS NORMALS: normal inspection of the chest and normal palpation of entire chest wall Resp: OTHER: I-gel in place patient is breathing over the i-gel Cardio: COMMON NORMALS: regular rhythm RATE: tachycardic RHYTHM: regular rhythm GI: COMMON NORMALS: Normal to inspection, nondistended, normoactive bowel sounds present, Soft to palpation and non-tender PALPATION: Yes Soft to palpation Extremity: COMMON NORMALS: normal to inspection Neuro: COMMON NORMALS: negative for patient oriented x3 Psych: COMMON NORMALS: negative for mental status grossly normal Skin: COMMON NORMALS: no rashes or lesions noted GENERAL SKIN EXAM: no rashes or lesions noted Procedures Intubation Time out performed: Yes sedative: Etomidate Mg Given: 20 paralytic: Vecuronium Mg Given: 15 Laryngoscope: Marvin ET Tube Size: 8 ET Tube Uncuffed: No Tube Secured Depth (cm): 25 Tube Secured Location: teeth Tube Placement Confirmation: visualized tube passing through cords, equal breath sounds bilaterally, no breath sounds over epigastrium and confirmation by capnometry Patient Tolerated Procedure: well Intubation Complications: none Course Vital Signs: Vital signs: Vital Signs Pulse Rate 96 01/01/23 17:05 Respiratory Rate 20 H 01/01/23 17:05 Blood Pressure 118/78 01/01/23 17:05 Pulse Oximetry 97 01/01/23 17:05 Fraction of Inspir ed Oxygen 70 01/01/23 16:57 [facility] - General Adult Medical Decision Making pt presents here with cardiac arrest likely vfib/vtach arrest. Pt was cardioverted and given lidocaine and had rosc. He was intubated here Pt seen by dr. giles in the ED after arrival and evaluated pt. Another stemi arrived at the same time and that pt was taken to phlebotomist lab assistant first and Mr. rios started on a heparin drip currently. Dr. giles is taking pt to the phlebotomist lab assistant after the other stemi. Pt vital signs have been stable in the ED Medical Records I reviewed the patient's medical records. Lab Data I reviewed the patient's lab results. 01/01/23 16:38 01/01/23 16:38 Radiology Impressions Chest X-Ray 01/01/23 16:23 IMPRESSION: 1. No acute findings. 2. Satisfactory endotracheal tube placement. Head CT 01/01/23 16:29 IMPRESSION: No acute intracranial abnormality. Laboratory Results WBC 7.00 10^3/uL (3.29-11.43) 01/01/23 16:38 RBC 5.04 10^6/uL (3.85-5.65) 01/01/23 16:38 Hgb 16.10 g/dL (11.27-16.99) 01/01/23 16:38 Hct 47.0 % (37-53) 01/01/23 16:38 MCV 93.3 fl (82-101) 01/01/23 16:38 MCH 31.9 pg (27-33) 01/01/23 16:38 MCHC 34.3 g/dL (30-55) 01/01/23 16:38 RDW 12.8 % (12.1-15.1) 01/01/23 16:38 Plt Count 149 10^3/cmm (157-399) L 01/01/23 16:38 MPV 11.1 fL (7.4-10.4) H 01/01/23 16:38 Neut % (Auto) 35.8 % 01/01/23 16:38 Lymph % (Auto) 51.9 % 01/01/23 16:38 [place] % (Auto) 8.6 % 01/01/23 16:38 Eos % (Auto) 2.1 % 01/01/23 16:38 Baso % (Auto) 0.7 % 01/01/23 16:38 Neut # (Auto) 2.51 10^3/uL (1.8-7.7) 01/01/23 16:38 Lymph # (Auto) 3.6 10^3/uL (0.8-4.8) 01/01/23 16:38 [place] # (Auto) 0.6 10^3/uL (0.2-0.9) 01/01/23 16:38 Eos # (Auto) 0.2 10^3/uL (0.0-0.8) 01/01/23 16:38 Baso # (Auto) 0.1 10^3/uL (0.0-0.1) 01/01/23 16:38 Nucleated RBC % (auto) 0 % 01/01/23 16:38 Nucleated RBCs # 0.0 /100WBC 01/01/23 16:38 PT 14.20 SECONDS (12.1-14.9) 01/01/23 16:38 INR 1.07 (0.8-1.2) 01/01/23 16:38 Specimen Type Arterial 01/01/23 16:24 Sample Site Radial, right 01/01/23 16:24 ABG pH 7.28 (7.35-7.45) L 01/01/23 16:24 ABG pCO2 45.4 mmHg (35-45) H 01/01/23 16:24 ABG pO2 214.0 mmHg (80.0-100.0) H 01/01/23 16:24 ABG HCO3 21.4 mmol/L (22-26) L 01/01/23 16:24 ABG O2 Saturation 99.2 01/01/23 16:24 ABG Base Excess -5.5 mmol/L (-2.0-2.0) L 01/01/23 16:24 [place] Test Pos 01/01/23 16:24 A-a O2 Gradient 57.2 mmHg (5-10) H 01/01/23 16:24 Hematocrit 50.9 % (42-52) 01/01/23 16:24 Hgb O2 Saturation 98.2 % (95-100) 01/01/23 16:24 Carboxyhemoglobin 0.6 %THgb (0.4-20.1) 01/01/23 16:24 Methemoglobin 0.4 % (0.4-1.5) 01/01/23 16:24 Total Hemoglobin 16.6 g/dL (14-18) 01/01/23 16:24 Sodium 140.0 mmol/L (131-143) 01/01/23 16:24 Potassium 4.0 mmol/L (3.5-5.0) 01/01/23 16:24 Glucose 159.0 mg/dL (70-115) H 01/01/23 16:24 Ionized Calcium 1.2 mmol/L (1.1-1.4) 01/01/23 16:24 O2 Delivery Device Vent 01/01/23 16:24 FiO2 100.0 % 01/01/23 16:24 Tidal Volume 0.50 01/01/23 16:24 PEEP 5.0 cmH20 01/01/23 16:24 Trimmer Machine ID Valentino 01/01/23 16:24 Sodium 139 mmol/L (136-145) 01/01/23 16:38 Potassium 4.2 mmol/L (3.5-5.1) 01/01/23 16:38 Chloride 103 mmol/L (98-107) 01/01/23 16:38 Carbon Dioxide 21 mmol/L (22-29) L 01/01/23 16:38 Anion Gap 19.2 (5-19) H 01/01/23 16:38 BUN 23 mg/dL (8-23) 01/01/23 16:38 Creatinine 1.5 mg/dL (0.7-1.2) H 01/01/23 16:38 GFR Calculation Not Reportable 01/01/23 16:38 Glucose 150 mg/dL (65-115) H 01/01/23 16:38 Calculated Osmolality 295 mOsm/kg (285-295) 01/01/23 16:38 Calcium 8.2 mg/dL (8.5-10.5) L 01/01/23 16:38 Total Bilirubin 0.5 mg/dL (0.15-1.2) 01/01/23 16:38 AST 120 U/L (0-40) H 01/01/23 16:38 ALT 206 U/L (0-41) H 01/01/23 16:38 Alkaline Phosphatase 78 U/L (40-130) 01/01/23 16:38 Troponin T Baseline 18 ng/L (0-15) H 01/01/23 16:38 Total Protein 7.0 g/dL (6.6-8.7) 01/01/23 16:38 Albumin 4.0 g/dL (3.5-5.2) 01/01/23 16:38 Globulin 3.0 g/dL (1.3-4.6) 01/01/23 16:38 All radiology interpretation(s) finalized by discharge EKG Data EKG 1: I personally reviewed and interpreted this EKG as follows: EKG interpretation date: 01/01/23 EKG interpretation time: 16:16 Interpretation: sinus tach lbbb hr [address] or t wave abnormalities qrs 170 qtc 431 Computer generated interpretation: Chest X-Ray 01/01/23 16:23 IMPRESSION: 1. No acute findings. 2. Satisfactory endotracheal tube placement. Head CT 01/01/23 16:29 IMPRESSION: No acute intracranial abnormality. Critical Care Time Critical Care Time: Critical Care Time: Yes Total Critical Care Time: 55 Attestation: The high probability of a clinically significant, sudden or life threatening deterioration of the patient's cv system(s) required my full and direct attention, intervention and personal management. The critical care time is as shown. This time is in addition to time spent performing any reported procedures but includes the following: [x] Data and vital sign review and interpretation [x] Patient assessment, examination and intervention [x] Documentation [x] Medication orders and management Discharge Plan Discharge Patient Disposition: Admitted As Inpatient Clinical Impression: Cardiac arrest Condition: Stable Coding Level of Care Code ED Vp Client Services for [facility] Serra
[2023-01-01 17:24] LABS: Anion Gap 19.2 (5-19); Potassium 4.2 mmol/L (3.5-5.1)
[2023-01-01] MEDS: heparin drip 25,000 UNIT/500 ML PREMIX 26.67 UNIT IV (17:31)
[2023-01-01 18:02] LABS: ABG PCO2 40.7 mmHg (35-45); ABG PH Result 7.35 (7.35-7.45); Alveolar-Arterial Oxygen Gradi 41.6 mmHg (5-10); Arterial Blood Gas Hematocrit 51.3 % (42-52); Base Excess ABG -3.3 mmol/L (-2.0-2.0); Blood Gas Allen Test Pos; Blood Gas Operator Identificat MONRO; Blood Gas Sample Site Radial, right; Blood Gas Sample Type Arterial; Carboxyhemoglobin 0.5 %THgb (0.4-20.1); HCO3 ABG 22.2 mmol/L (22-26); HGB O2 Sat 97.8 % (95-100); Ionized Calcium Level - ABG 1.2 mmol/L (1.1-1.4); Methemoglobin 0.1 % (0.4-1.5); Oxygen Device VENT; Oxygen Saturation ABG 98.4; Potassium Level - ABG 4.2 mmol/L (3.5-5.0); Total Hemoglobin 16.7 g/dL (14-18)
[2023-01-01] MEDS: etomidate 2 mg/mL INJ SDV 10 mL 20 MG IVP (18:05)
[2023-01-01] MEDS: vecuronium 10 mg SDV 15 MG IVP (18:05)
--- NOTE | 2023-01-01 18:08 | XACV_ITS ---
Gender: Male : 1945 Any Known Allergies: Sulfa Exam Priority: Routine Procedure(s): Procedure Description: Diagnostic procedure Procedure Description: Coronary Angiography Diagnostic Cath Status: Emergency Diagnostic Findings * Out of hospital cardiac arrest. Recent stent placement to the circumflex about 1 month ago. Known LAD occlusion. * Angiography reveals right coronary artery dominance. The left main is normal. The LAD is occluded chronically within a previously placed stent. There is a large diagonal branch which is patent. Circumflex is patent. The stent is patent without thrombus or restenosis. 2 marginal branches which are patent. The right coronary artery is a dominant vessel and is patent. There are 2 posterior left ventricular branches and a posterior descending artery. There is mild diffuse disease noted. There is also a 30% stenosis just past the ostium.. PCI Status: Emergency Conclusions 1. Out of hospital cardiac arrest. Chronically occluded LAD. Patent circumflex and patent recently placed stent. Patent right coronary artery. Recommendations * ICD placement if central nervous system recovers. Interventional RX Recommendation: other cardiac therapy w/o CABG/PCI Diagnostic RX Recommendation: other cardiac therapy w/o CABG/PCI Anticoagulation: Heparin Pressures Phase:Rest AO : 133 / 100 ( 111 ) @ 1:44:33 PM 114 / 102 ( 108 ) @ 1:44:33 PM Clinical Evaluation EBL: 5mL-10mL Procedural Details Procedure Consent Obtained. Pre-Procedure Time Out. Identified patient by full name and date of as verbalized by the patient/guarantor. Does the consent match the physician's order: N/A Emergent. Accurate & Complete Informed Consent: N/A Emergent. Inpatient/Outpatient History & Physical on Chart: N/A Emergent. If H&P is completed, is and addenduem needed: N/A Emergent; If yes, is the addendum complete: N/A Emergent. Visualize and Verify Site with Patient/Guarantor: N/A. Relevant Radiology Images available: N/A Emergent. The risks, benefits, and alternatives of sedation and/or procedure were discussed by physician. The patient agrees to continue. Procedure started. Patient arrived to crime lab technician on a ventilator and will be managed by respiratiory. IV Site on Arrival: 18 gauge in the left anticubital. Pre Procedural Pulses: bilateral posterior tibial was 2+. Pre Procedural Pulses: bilateral dorsalis pedis was 2+. Physician arrived. Physician arrived. Physician scrubbed in. Immediate Pre-Procedure Time Out. Correct Patient: N/A Emergent; Correct Procedure: N/A Emergent; Correct Site: N/A Emergent; Correct Patient Position: N/A Emergent; Correct Supplies: N/A Emergent; Dried Flammable Prep: N/A Emergent; Blood Products Available: N/A Emergent;. Lidocaine 1% infiltrated to the right groin. Arterial access obtained. 6 latvian XB 3.5 guide catheter was inserted over the wire. Propofol 60mcg/kg/min. Fentanyl 100mcg/hr. Right AC IV no longer good on arrival to crime lab technician. Heparin drip no longer running. Multiple views taken of left coronary artery. Catheter out. A 5 latvian JR4 catheter in over wire. Multiple views taken of right coronary artery. Catheter out. A Suture was successful obtaining hemostatsis at the Right Femoral artery insertion site. Post Procedure: Pulses reassessed and unchanged. No VTE prophylaxis required. Medication's Wasted: Lidocaine 1% = 4 mL. Post-op diagnosis: Patent previous stent. Complications: none. Estimated blood loss: 5mL-10mL. Circulation: W/N/L, pulses unchanged. Nausea/Vomiting: No. Procedure completed. Patient transferred by bed to ICU. Vital chart was stopped. Access Site Site: Right Femoral artery Sheath Size: 6 Fr Hemostasis Method: Suture Hemostasis Success: Successful I, the attending physician, have reviewed and verified all procedure medications. Yes, all medications given per verbal order Report Signatures Finalized by Dr. Navid Beach MD on 01/01/2023 07:04 PM
[2023-01-01 18:10] LABS: Lactic Sepsis W/Reflex 4.4 mmol/L (0.5-2.2)
--- NOTE | 2023-01-01 18:23 | PC.NURSE ---
Pt arrive to ER 1612 Pt intubated with: 20 mg Eliminate 1621 15mg vec 1622 Pt 8.0 ET; 24 at lip
--- NOTE | 2023-01-01 18:32 | P.HP_ITS ---
Providers/Chief Complaint Primary Care Provider: Renate Trevizo DO Chief Complaint: cpr History of Present Illness Jaskaran Brown is a 77 year old male with history of established coronary disease with recent stent, follows up with cardiology at [facility], status post cardiac arrest patient was in pulseless V. tach/V-fib he was defibrillated x2, received lidocaine he was intubated in the ER, EMS put an i- gel, after second shock achieved ROSC As per the hair boiler patient was able to move his extremities he was trying to wake up, TTM protocol was not initiated patient went to the [employer] around 6:30 PM Currently patient is on heparin drip, Most of the information has [facility] work showing stable CBC, MILLY, metabolic acidosis related to lactic acidemia due to hypoperfusion and cardiac arrest, congestive hepatopathy, does not show shock liver abnormality Review of other medical records [employer] of prior LAD stent with collaterals from RCA, moderate to proximal RCA stenosis and severe stenosis of proximal left circumflex artery.? He underwent successful revascularization of proximal circumflex artery with 1 stent, he had complete occlusion of LAD patient was prescribed dual antiplatelet therapy, Coreg,, he has follow-up with cardiology clinic Spoke with Dr. Beach, his left circumflex stent is patent, LAD is chronically occluded, He will go to ICU, will assess neurological status before we go ahead with AICD placement As per the : Patient was in the parking lot of [facility], he notified his that he was not feeling well and then he suddenly collapsed, a bystander started CPR immediately, there were 2 ladies who started CPR until EMS arrived, took about 10 minutes for the EMS to arrive as per the Review of Systems General: Reports: ROS unobtainable due to endotracheal tube and ROS unobtainable due to medical condition Medications/Allergies Home Medications Medication Instructions Recorded Confirmed Last Taken Type lansoprazole 30 mg capsule,delayed 30 mg PO DAILY@0630 11/11/22 01/01/23 11/14/22 History release melatonin 10 mg tablet 10 mg PO BEDTIME PRN Sleep 11/11/22 01/01/23 11/14/22 History aspirin 81 mg tablet,delayed 81 mg PO BEDTIME@2100 #60 tabs 07/27/23 09/14/23 07/28/23 Rx release (Adult Aspirin Regimen) carvedilol 3.125 mg tablet 3.125 mg PO BID #60 tabs 11/13/22 01/01/23 11/15/22 Rx doxylamine succinate 25 mg tablet 25 mg PO BEDTIME 11/15/22 01/01/23 11/14/22 History (Unisom (doxylamine)) atorvastatin 40 mg tablet 40 mg PO DAILY #90 tabs 11/18/22 01/01/23 Unknown Rx isosorbide mononitrate 30 mg 30 mg PO DAILY #90 tabs 11/18/22 01/01/23 Unknown Rx tablet,extended release 24 hr ranolazine 500 mg tablet,extended 500 mg PO BID #180 tabs 11/18/22 01/01/23 Unknown Rx release,12 hr nitroglycerin 0.4 mg sublingual 0.4 mg sublingual Q5M PRN Chest 12/03/22 01/01/23 Unknown Rx tablet (Nitrostat) Pain #25 tabs empagliflozin 10 mg tablet 10 mg PO DAILY #90 tabs 12/05/22 01/01/23 Unknown Rx (Jardiance) clopidogrel 75 mg tablet 75 mg PO DAILY #60 tabs 12/10/22 01/01/23 Unknown Rx lisinopril 5 mg tablet 5 mg PO DAILY #90 tabs 12/10/22 01/01/23 Unknown Rx Allergies Allergy/AdvReac Type Severity Reaction Status Date / Time Sulfa (Sulfonamide Allergy ALGY-Rash Verified 12/10/22 09:54 Antibiotics) PFSH Acute PFSH: Medical History (Updated 01/02/23 @ 07:26 by Navid Beach MD) BPH with obstruction/lower urinary tract symptoms CAD (coronary artery disease) Chronic neck pain Chronic prostatitis Diverticulitis of sigmoid colon GERD (gastroesophageal reflux disease) History of colon polyps History of PA (myocardial infarction) Transaminitis Type 2 diabetes mellitus, without long-term current use of insulin Unstable angina pectoris Surgical History H/O circumcision H/O colonoscopy (01/17/20) descending colon polyp and sigmoid diverticulitis H/O knee surgery History of hemorrhoidectomy Status post appendectomy Status post coronary angioplasty Family History Father , at age 92-heart trouble No problems noted. Mother , AT AGE 88-ALZHEIMERS No problems noted. Other CAD (coronary artery disease) Cancer Diabetes Hypertension Denies family history of Anesthesia complication Bleeding disorder Social History Smoking and tobacco status: never smoked Alcohol intake: current Alcohol intake frequency: 0-2 Drinks per Day Substance/Drug Use: never Household members: spouse Marital status: Current occupational status: retired Vitals/I&O/Wt Last Vital Signs Pulse 96 01/01/23 17:05 Resp 20 H 01/01/23 17:05 BP 118/78 01/01/23 17:05 Pulse Ox 97 01/01/23 17:05 FiO2 70 01/01/23 16:57 01/01/23 01/01/23 01/01/23 06:59 14:59 22:59 Intake Total 8.893 / 8.893 Balance 8.893 / 8.893 Weight last 48 hrs Weight 111.13 kg Physical Exam Narrative: Patient is intubated Sedated Park catheter in place Endotracheal tube in place Neuro exam is limited Abdomen distended however soft Currently seems to be in sinus rhythm with stable hemodynamics Urinary Catheter Management: Park: Cath Placed During This Visit: yes Urinary Catheter Date of Insertion: 01/01/23 Urinary Catheter Time of Insertion: 18:10 Data 01/02/23 04:10 01/02/23 06:10 A&P Assessment and plan (1) Cardiac arrest: (2) Cardiac arrhythmia: (3) CHF (congestive heart failure): (4) Type 2 diabetes mellitus, without long-term current use of insulin: Qualifiers: Diabetes mellitus complication status: with circulatory complication (5) CAD (coronary artery disease): (6) History of PA (myocardial infarction): (7) Metabolic acidosis: (8) Respiratory failure requiring intubation: (9) MILLY (acute kidney injury): Plan Sudden cardiac arrest Likely related to arrhythmia, V. tach/V-fib Patient was given lidocaine, defibrillated x2, actual downtime unknown Currently patient is intubated, patient was trying to wake up as per the hair boiler, TTM protocol not initiated, Status post [employer]sperson, left circumflex stent is open, LAD is chronically occluded which could be the culprit lesion for arrhythmia Once we know his neurological status will go ahead with AICD placement, will speak with the hair boiler, cardiothoracic surgeon and the family We will try to wean him off in the morning Monitor CBC, CMP, repeat labs Provided the fact stent is open there is no need for heparin drip, I will keep him on heparin DVT prophylaxis at this point, keep potassium above 4 magnesium of 2 In case of recurrence of arrhythmia he may need amiodarone versus lidocaine MILLY: Status post cardiac arrest Monitor urine output and kidney function MAP currently is above 65 mmHg after ROSC Lactic acid is related to hypoperfusion I do not suspect sepsis, but he is at risk of aspiration pneumonia I will put him on Zosyn History of established diabetes, coronary disease Monitor blood sugar Avoid D5 IV fluid for now Check sugar every 6h Admit to ICU Critical care Most of the information taken on the collaterals, multiple phone calls made, We will sign out to the web mobile designer as well Attestations Medical Necessity Statement*: Anticipating more than 2 midnights This patient needed direct assessment in the ER, coordination of care, frequent lab follow-up, Coding Level of Care Code Critical Care >/= 30 minutes Critical care time (in minutes): 45 The high probability of a clinically significant, sudden or life threatening deterioration, as referenced in this documentation, required my full and direct attention, intervention and personal management. The critical care time shown is in addition to time spent performing any reported separately billable procedures and includes the following: [x] Data and vital sign review and interpretation [x ] Patient assessment, examination and intervention [x] Medication orders and management [x] Patient/Family updates as able [x] Care Coordination and Documen tation. Diagnoses Cardiac arrest I46.9 Cardiac arrhythmia I49.9 CHF (congestive heart failure) I50.9 Type 2 diabetes mellitus, without long-term current use of insulin E11.9 Diabetes mellitus complication status: with circulatory complication CAD (coronary artery disease) I25.10 History of PA (myocardial infarction) I25.2 Metabolic acidosis E87.20 Respiratory failure requiring intubation J96.90 MILLY (acute kidney injury) N17.9
[2023-01-01 18:44] LABS: Add Urine Microscopic? YES; Bilirubin Urine Neg (Negative); Blood Urine 2+ (Negative); Glucose Urine UA 4+ (Normal); Ketones Urine Negative (Negative); Leukocyte Esterase Urine Negative (Negative); Nitrate Urine Negative (Negative); Protein Urine 3+ (Negative); Urine Appearance Clear (CLEAR); Urine Color Yellow (Yellow); Urobilinogen Urine 4 mg/dL (Negative); pH Urine 5 (5-7)
[2023-01-01 18:46] LABS: Add Urine Culture? No; Amorphous Sediment Urine 3+ /hpf; Bacteria Urine TRACE /hpf; Fine Granular Casts Urine 0-4 /lpf; Hyaline Casts Urine 0-4 /lpf; Mucus Urine 2+ /hpf; Squamous Epithelial Cell Urine 0-4 /hpf (0-5)
--- NOTE | 2023-01-01 18:47 | P.CONIM_ITS ---
Providers/Reason For Consult Consulting Physician/Specialty*: Cardiovascular medicine Reason for Consult*: Cardiac arrest Requesting Physician: Emergency room Attending Physician: Navid Beach MD Primary Care Provider: Renate Trevizo DO History of Present Illness History of Present Illness Jaskaran Brown is a 77 year old male who has known coronary artery disease. Several years ago he had an acute anterior wall IN and a stent was placed to the LAD. Post IN he had a left ventricular thrombus. That was treated suc cessfully. On November 11 of this year he presented to the hospital with unstable angina. One of my colleagues placed a stent in his proximal circumflex. At that time the LAD was occluded at the level of the stent. He is a diabetic with benign prostatic hypertrophy. An echocardiogram when he was in in October was a poor quality study and revealed moderate to severe reduced left ventricular ejection fraction although the specific number was not provided. He went home on an ABDI inhibitor and atorvastatin along with his other medications. I believe the beta-vikki was discontinued. Today he was with his at one of the local [employer] businesses. He was sitting in the car and when his returned to the car he told her he did not feel well and suddenly collapsed. 911 was called. He was cardioverted twice in the ambulance for what I believed was ventricular tachycardia. On his arrival here he was intubated. I was then called but was involved in another patient who was in the catheterization laboratory with a acute myocardial infarction. Upon my arrival back to the emergency room he was hypertensive, up moving around and was on a propofol and fentanyl drip. He was also on heparin. Scanning of his head revealed a negative CT. Review of Systems Narrative: Review of systems is unavailable due to the comatose and intubated state. Medications/Allergies Home Medications Medication Instructions Recorded Confirmed Last Taken Type lansoprazole 30 mg capsule,delayed 30 mg PO DAILY@0630 11/11/22 01/01/23 11/14/22 History release melatonin 10 mg tablet 10 mg PO BEDTIME PRN Sleep 11/11/22 01/01/23 11/14/22 History aspirin 81 mg tablet,delayed 81 mg PO BEDTIME@2100 #60 tabs 11/13/22 01/01/23 11/14/22 Rx release (Adult Aspirin Regimen) carvedilol 3.125 mg tablet 3.125 mg PO BID #60 tabs 11/13/22 01/01/23 11/15/22 Rx doxylamine succinate 25 mg tablet 25 mg PO BEDTIME 11/15/22 01/01/23 11/14/22 History (Unisom (doxylamine)) atorvastatin 40 mg tablet 40 mg PO DAILY #90 tabs 11/18/22 01/01/23 Unknown Rx isosorbide mononitrate 30 mg 30 mg PO DAILY #90 tabs 11/18/22 01/01/23 Unknown Rx tablet,extended release 24 hr ranolazine 500 mg tablet,extended 500 mg PO BID #180 tabs 11/18/22 01/01/23 Unknown Rx release,12 hr nitroglycerin 0.4 mg sublingual 0.4 mg sublingual Q5M PRN Chest 12/03/22 01/01/23 Unknown Rx tablet (Nitrostat) Pain #25 tabs empagliflozin 10 mg tablet 10 mg PO DAILY #90 tabs 12/05/22 01/01/23 Unknown Rx (Jardiance) clopidogrel 75 mg tablet 75 mg PO DAILY #60 tabs 12/10/22 01/01/23 Unknown Rx lisinopril 5 mg tablet 5 mg PO DAILY #90 tabs 12/10/22 01/01/23 Unknown Rx Allergies Allergy/AdvReac Type Severity Reaction Status Date / Time Sulfa (Sulfonamide Allergy ALGY-Rash Verified 12/10/22 09:54 Antibiotics) Current Medications Generic Name Dose Route Start Last Admin Trade Name Freq PRN Reason Stop Dose Admin Fentanyl 1,000 mcg/ Sodium 100 mls @ 0 mls/hr 01/01/23 16:30 01/01/23 17:08 Chloride IV 100 mcg/hr .Q0M MAE 10 mls/hr Administration Protocol Per Protocol Propofol 1,000 mg in 100 mls @ 0 mls/hr 01/01/23 16:30 01/01/23 17:08 Diprivan IV 20 mcg/kg/min .Q0M MAE 13.34 mls/hr Administration Protocol Per Protocol Heparin Sodium/Sodium Chloride 25,000 unit in 500 mls @ 26.671 mls/hr 01/01/23 16:30 01/01/23 17:31 Heparin Drip IV 12 unit/kg/hr .[id number] MAE 26.67 mls/hr Administration 12 UNIT/KG/HR PFSH Acute PFSH: Medical History BPH with obstruction/lower urinary tract symptoms CAD (coronary artery disease) Chronic neck pain Chronic prostatitis Diverticulitis of sigmoid colon GERD (gastroesophageal reflux disease) History of colon polyps History of IN (myocardial infarction) Type 2 diabetes mellitus, without long-term current use of insulin Unstable angina pectoris Surgical History H/O circumcision H/O colonoscopy (01/17/20) descending colon polyp and sigmoid diverticulitis H/O knee surgery History of hemorrhoidectomy Status post appendectomy Status post coronary angioplasty Family History Father , at age 92-heart trouble No problems noted. Mother , AT AGE 88-[place] No problems noted. Other CAD (coronary artery disease) Cancer Diabetes Hypertension Denies family history of Anesthesia complication Bleeding disorder Social History Smoking and tobacco status: never smoked Alcohol intake: current Alcohol intake frequency: 0-2 Drinks per Day Substance/Drug Use: never Household members: spouse Marital status: Current occupational status: retired Vitals/I&O/Wt Last Vital Signs Pulse 96 01/01/23 17:05 Resp 20 H 01/01/23 17:05 BP 118/78 01/01/23 17:05 Pulse Ox 97 01/01/23 17:05 FiO2 70 01/01/23 16:57 01/01/23 01/01/23 01/01/23 06:59 14:59 22:59 Intake Total 8.893 / 8.893 Balance 8.893 / 8.893 Weight last 48 hrs Weight 245 lb Physical Exam Narrative: GENERAL: He is intubated and comatose HEENT: Exam within normal limits. NECK: Supple without jugular vein distention. The carotid upstroke is normal without bruits. BACK: Exam normal. LUNGS: Clear. HEART: Regular rate and rhythm. ABDOMEN: Benign without organomegaly or tenderness. EXTREMITIES: No edema. NEUROLOGIC: He is moving around a little bit despite the propofol and the fentanyl drip. No purposeful movement yet. SKIN: Unremarkable. Urinary Catheter Management: Park: Cath Placed During This Visit: yes Urinary Catheter Date of Insertion: 01/01/23 Urinary Catheter Time of Insertion: 18:10 Data 01/01/23 16:38 01/01/23 16:38 A&P Assessment and plan (1) MILLY (acute kidney injury): (2) Respiratory failure requiring intubation: (3) Metabolic acidosis: (4) Cardiac arrhythmia: (5) Cardiac arrest: (6) CHF (congestive heart failure): (7) Type 2 diabetes mellitus, without long-term current use of insulin: Qualifiers: Diabetes mellitus complication status: with circulatory complication (8) CAD (coronary artery disease): (9) History of IN (myocardial infarction): Plan Cardiac catheterization to assess the coronary arteries. Are mainly interested in the stent that was put in about a month ago to see if it is occluded. This will die turner to be either an arrhythmia from previous myocardial infarction and the ventricular scar or an occluded stent. My suspicion based on the EKG is that will be an arrhythmia. I spoke to his at length in the emergency room. Consult Attestations Medical Necessity Statement: Hospitalization for out of hospital cardiac arrest and High Time for a total of 70 minutes, includes reviewing past or interval history, examining/interviewing patient, placing orders, counseling patient/family/other support, updating patient/family/other support, discussing plan of care with staff, communicating with other healthcare providers, documenting encounter and coordinating care Diagnoses MILLY (acute kidney injury) N17.9 Respiratory failure requiring intubation J96.90 Metabolic acidosis E87.20 Cardiac arrhythmia I49.9 Cardiac arrest I46.9 CHF (congestive heart failure) I50.9 Type 2 diabetes mellitus, without long-term current use of insulin E11.9 Diabetes mellitus complication status: with circulatory complication CAD (coronary artery disease) I25.10 History of IN (myocardial infarction) I25.2
--- NOTE | 2023-01-01 19:10 | USCV_ITS ---
Kevin Jaskaran Age: 77 Gender: M : 1945 Exam Date: 01/01/2023 21:06 Ordering Phys: Leticia Stephen MD Technologist: TERESSA Exam Location: [facility] [place] Indication: cardiac arrest Vfib. Patient is on ventilator in ICU-11 BP: 122 / 79 HR: 116 Rhythm: Sinus Technical Quality: Adequate with OPTISON MEASUREMENTS (Male / Female) Normal Values 2D ECHO LV Diastolic Diameter PLAX 5.3 cm 4.2 - 5.9 / 3.9 - 5.3 cm LV Systolic Diameter PLAX 4.3 cm IVS Diastolic Thickness 1.2 cm 0.6 - 1.0 / 0.6 - 0.9 cm IVS Systolic Thickness 1.5 cm LVPW Diastolic Thickness 1.2 cm 0.6 - 1.0 / 0.6 - 0.9 cm LVPW Systolic Thickness 1.4 cm LVOT Diameter 2.1 cm LV Ejection Fraction 2D Teich 40.3 % LV Ejection Fraction MOD 2C 21.1 % LV Ejection Fraction 2C AL 22.4 % LA Diameter 3.6 cm LA Width 4.0 cm LA Height 4.8 cm RA Width 2.7 cm RA Height 4.4 cm Aorta at Sinotubular Diameter 3.3 cm IVC Diameter 1.8 cm M-MODE Aortic Annulus Diameter 3.3 cm LA Ao Ratio MM 1.1 MV E Point Septal Separation 2.0 cm DOPPLER AV Peak Velocity 124.0 cm/s LVOT Peak Velocity 50.0 cm/s AV Area Cont Eq vti 1.3 cm squared AV Area Cont Eq pk 1.4 cm squared MV Area PHT 6.9 cm squared Mitral E to A Ratio 1.2 MV E' Velocity 61.5 cm/s Mitral E to MV E' Ratio 10.5 Mitral E to LV E' Lateral Ratio 9.2 Mitral E to LV E' Septal Ratio 12.2 TV Peak E Velocity 90.0 cm/s PV Peak Velocity 110.0 cm/s RV Acceleration Time 0.1 s RV Ejection Time 0.3 s RV AcT/ET 0.2 FINDINGS Left Ventricle The study is poor quality. Echo contrast in the form of Optison was used. The apex, anterior wall and septum are all akinetic. There is mild to moderate hypokinesis of the lateral, inferior and posterior gil. A very rough estimate of the ejection fraction is about 20 to 25%. There is some paradoxical motion of the septum probably due to a conduction abnormality. Decreasing the sensitivity is the fact that the rhythm is sinus tachycardia. Right Ventricle Normal right ventricular size and systolic function. TR jet is insufficient to estimate pulmonary artery pressure. Right Atrium The right atrium is normal in size. Left Atrium The left atrium is normal in size. Mitral Valve Mitral valve was not well seen. There is no obvious regurgitation. Aortic Valve Aortic valve is calcified. There is no obvious aortic stenosis or aortic insufficiency. Tricuspid Valve Structurally normal tricuspid valve. Trace tricuspid valve regurgitation. Pulmonic Valve Pulmonic valve not well visualized. Pericardium Normal pericardium without effusion. Aorta Aorta not well visualized. IVC Inferior vena cava not visualized. CONCLUSIONS The study is poor quality. Echo contrast in the form of Optison was used. The apex, anterior wall and septum are all akinetic. There is mild to moderate hypokinesis of the lateral, inferior and posterior gil. A very rough estimate of the ejection fraction is about 20 to 25%. There is some paradoxical motion of the septum probably due to a conduction abnormality. Decreasing the sensitivity is the fact that the rhythm is sinus tachycardia. No change from the previous study. Dr. Navid Beach MD (Electronically Signed) Final Date: 02 January 2023 12:11 S
[2023-01-01 19:11] LABS: Reflex Lactate Order REFLEX LACTIC ORDERD
[2023-01-01 19:44] LABS: D Dimer 3.34 ug/mLFEU (0-0.59)
[2023-01-01] MEDS: aspirin 81 mg EC Tablet PO (20:16)
[2023-01-01] MEDS: piperacillin-tazobactam 3.375 GM in sodium chloride 0.9% (plus) 50 ML IV (20:16)
[2023-01-01] MEDS: FUROsemide 10 mg/mL SDV 10mL 40 MG IVP (20:16)
[2023-01-01 20:22] LABS: NT Pro B Type Natriuretic Pept 342 pg/mL (0-450); Procalcitonin 0.05 ng/mL (0-0.5); Vitamin B12 362 pg/mL (232-1245)
[2023-01-01 20:32] LABS: Magnesium 1.9 mg/dL (1.7-2.3)
[2023-01-01 21:02] LABS: Partial Thromboplastin Time 34.5 SECONDS (23.9-36.7)
[2023-01-01 21:06] LABS: Lactic Acid level (Lactate) 2.4 mmol/L (0.5-2.2)
[2023-01-01 21:11] LABS: Troponin 5 2HR 247.7 ng/L (0-15); Troponin 5 2HR Delta 229.7 ABS# (0-10)
[2023-01-01] MEDS: propofol 1,000 MG/100 ML INJ 43.34 MG IV ×2 (21:25→23:27)
[2023-01-01] MEDS: enoxaparin 120 mg/0.8 mL Syringe 110 MG SUBCUT (22:03)
--- NOTE | 2023-01-01 22:26 | XRR_ITS ---
PROCEDURE INFORMATION: Exam: XR Chest Exam date and time: 01/01/2023 10:34 PM Age: 77 years old Clinical indication: Device placement; Picc; Additional info: Picc placement TECHNIQUE: Imaging protocol: Radiologic exam of the chest. Views: 1 view. COMPARISON: CR XR chest 1V portable [id number] 01/01/2023 4:26 PM FINDINGS: Tubes, catheters and devices: Right central venous catheter tip at the atrial caval junction. Endotracheal tube tip 1.9 cm above the yayo. Enteric tube tip extending below the diaphragm off the field of view. Lungs: Bilateral hilar left lower lobe atelectasis versus infiltrate. Pleural spaces: Unremarkable. No pleural effusion. No pneumothorax. Heart/Mediastinum: Cardiomegaly. Bones/joints: Unremarkable. XR/XR chest 1V portable [id number] IMPRESSION: 1. Right central venous catheter tip at the atrial caval junction. 2. Cardiomegaly. 3. Bilateral hilar left lower lobe atelectasis versus infiltrate. 4. Endotracheal tube tip 1.9 cm above the yayo. 5. Enteric tube tip extending below the diaphragm off the field of view.
--- NOTE | 2023-01-01 22:57 | PC.NURSE ---
Consulted by house charge for picc placement. Consent obtained by myslef, icu nurse, and family. RUE scanned with US and basilic vein was the best option. Vein was straight, 4 mm, and free of visible clot. Pt draped in usual sterile fashion. Using real time US, lidocaine injected, vein accessed, and picc floated into position. Chest xray obtained. EBL less then 5 ml. No bleeding no hematoma. Pt tolerated procedure well. Pt arm circumference is 35 cm at 10 cm above the ac fossa.
--- NOTE | 2023-01-01 23:20 | ECG_ITS ---
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 Measurements Intervals Briggs Rate: 114 P: 0 WA: 0 QRS: -41 QRSD: 152 T: 101 QT: 327 QTc: 450 Interpretive Statements ATRIAL FLUTTER/TACHYCARDIA WITH RAPID VENTRICULAR RESPONSE LEFT AXIS DEVIATION [QRS AXIS < -30] INTRAVENTRICULAR CONDUCTION DELAY [130+ ms QRS DURATION] LATERAL MYOCARDIAL INFARCTION , OF INDETERMINATE AGE [40+ ms Q WAVE AND/OR ST/T ABNORMALITY IN I/aVL/V5/V6] Compared to ECG 01/01/2023 16:16:22 Left-axis deviation now present Intraventricular conduction delay now present Myocardial infarct finding now present Sinus tachycardia no longer present First degree AV block no longer present Left bundle-branch block no longer present Electronically Signed On 01-02-2023 21:04:37 CDT by Cody Pierce M.D. [id number]
[2023-01-01 23:53] LABS: Troponin 5 6HR 199.4 ng/L (0-15); Troponin 5 6HR Delta 181.4 ng/L (0-12)
[2023-01-02] VITALS (66 sets, daily range): BP systolic 86–134; BP diastolic 44–77; PULSE 65–123; RESP 14–27; O2SAT 91–98
[2023-01-02] MEDS: propofol 1,000 MG/100 ML INJ 43.34 MG IV (02:05)
[2023-01-02 04:22] LABS: Basophils # 0.1 10^3/uL (0.0-0.1); Basophils % 0.6 %; Eosinophils # 0.2 10^3/uL (0.0-0.8); Eosinophils % 2.2 %; Hematocrit 47.4 % (37-53); Lymphocytes # 2.9 10^3/uL (0.8-4.8); Lymphocytes % 33.6 %; Mean Corpuscular HGB Conc 34.4 g/dL (30-55); Mean Corpuscular Hemoglobin 31.7 pg (27-33); Mean Corpuscular Volume 92.2 fl (82-101); Mean Platelet Volume 10.5 fL (7.4-10.4); Monocytes # 0.8 10^3/uL (0.2-0.9); Monocytes % 9.7 %; Neutrophils # 4.62 10^3/uL (1.8-7.7); Neutrophils % 53.4 %; Nucleated Red Blood Cells % 0 %; Platelet Count 156 10^3/cmm (157-399); Red Blood Count 5.14 10^6/uL (3.85-5.65); Red Cell Distribution Width 12.7 % (12.1-15.1); White Blood Count 8.65 10^3/uL (3.29-11.43)
[2023-01-02] MEDS: piperacillin-tazobactam 3.375 GM in sodium chloride 0.9% (plus) 50 ML IV ×2 (04:49→12:28)
[2023-01-02] MEDS: propofol 1,000 MG/100 ML INJ 40.01 MG IV (05:09)
[2023-01-02 05:18] LABS: ABG PCO2 36.1 mmHg (35-45); ABG PH Result 7.44 (7.35-7.45); Arterial Blood Gas Hematocrit 51.7 % (42-52); Base Excess ABG 0.7 mmol/L (-2.0-2.0); Blood Gas Allen Test Pos; Blood Gas Sample Site Radial, left; Blood Gas Sample Type Arterial; HCO3 ABG 24.4 mmol/L (22-26); Oxygen Device VENT
--- NOTE | 2023-01-02 05:46 | PC.NURSE ---
Dr Beach contacted with Ptt level. Gave order to pull sheath. Sheath pulled at 0415 without complication. Hematoma not present after removal. Distal pulses noted post removal.
--- NOTE | 2023-01-02 06:00 | XRR_ITS ---
PROCEDURE INFORMATION: Exam: XR Chest Exam date and time: 01/02/2023 6:08 AM Age: 77 years old Clinical indication: Device placement; Ett placement (vent status); Additional info: Post arrest TECHNIQUE: Imaging protocol: Radiologic exam of the chest. Views: 1 view. COMPARISON: CR (CHEST, ) 01/01/2023 10:34 PM FINDINGS: Tubes, catheters and devices: Endotracheal tube terminates approximately 2.0 cm above the yayo. Enteric tube terminates below the field of view. Right upper extremity PICC terminates over the SVC. Lungs: Scattered patchy airspace opacities, stable. Pleural spaces: No significant pneumothorax. Blunting of the left costophrenic angle. Heart/Mediastinum: Cardiomediastinal silhouette is stable. Bones/joints: Osseous structures are unchanged. XR/XR chest 1V portable [id number] IMPRESSION: 1. Scattered patchy airspace opacities, stable. 2. Left basilar costophrenic opacity, stable, which may represent atelectasis, aspiration, and/or pleural effusion.
[2023-01-02] MEDS: perflutren protein-a microsphr 0.22 mg/mL SDV 3 mL IV (06:09)
[2023-01-02] MEDS: pantoprazole DR 40 mg Tablet PO (06:31)
[2023-01-02 06:42] LABS: Alanine Aminotransferase 173 U/L (0-41); Alkaline Phosphatase 84 U/L (40-130); Aspartate Amino Transferase 64 U/L (0-40); Blood Urea Nitrogen 24 mg/dL (8-23); C Reactive Protein 22.6 mg/L (0.0-4.9); Calcium 8.4 mg/dL (8.5-10.5); Carbon Dioxide 23 mmol/L (22-29); Chloride 101 mmol/L (98-107); Globulin 2.8 g/dL (1.3-4.6); Glucose 178 mg/dL (65-115); Magnesium 1.8 mg/dL (1.7-2.3); Osmolality Calculated 292 mOsm/kg (285-295); Phosphorus 3.6 mg/dL (2.5-4.5); Sodium 137 mmol/L (136-145); Total Bilirubin 0.7 mg/dL (0.15-1.2); Total Protein 6.8 g/dL (6.6-8.7)
[2023-01-02 06:56] LABS: Anion Gap 16.7 (5-19); Potassium 3.7 mmol/L (3.5-5.1)
--- NOTE | 2023-01-02 07:20 | PM.PN ---
Subjective Subjective: Jaskaran has awakened. Last evening angiography revealed a patent stent to the circumflex. His LAD is chronically occluded. His right coronary artery is patent. Therefore this represents a ventricular fibrillation arrest/primary arrhythmia from the scar in the distribution of the LAD. He was heavily sedated overnight with propofol and fentanyl. He is also and on antibiotics and the norepinephrine drip. The nurses state that he was awake and following commands. He is still intubated. His initial troponin was 18, the second 248 and the third 199. His transaminases are elevated but trending downward. Vitals/I&O/Wt Last Vital Signs Pulse 109 H 01/02/23 05:45 Resp 15 01/02/23 05:45 BP 89/64 01/02/23 05:45 Pulse Ox 95 01/02/23 05:45 O2 Del Method Mechanical Ventilation 01/02/23 05:45 FiO2 40 01/02/23 04:56 01/01/23 01/02/23 01/02/23 22:59 06:59 14:59 Intake Total 247.437 / 247.437 629.533 / 876.970 Output Total 950 / 950 Balance 247.437 / 247.437 -320.467 / -73.030 Weight last 48 hrs Weight 245 lb Physical Exam Narrative: GENERAL: In general he is sedated and intubated. HEENT: Exam within normal limits. NECK: Supple without jugular vein distention. The carotid upstroke is normal without bruits. BACK: Exam normal. LUNGS: Clear. HEART: Regular rate and rhythm. ABDOMEN: Benign without organomegaly or tenderness. EXTREMITIES: No edema. NEUROLOGIC: Not done SKIN: Unremarkable. Urinary Catheter Management: Park: Cath Placed During This Visit: yes Reason for Continuing Indwelling Catheter: Accurate Measurement of Urinary Output in Critically Ill Patients Urinary Catheter Date of Insertion: 01/01/23 Urinary Catheter Time of Insertion: 18:10 Data 01/02/23 04:10 01/02/23 06:10 A&P Assessment and plan (1) MILLY (acute kidney injury): (2) Respiratory failure requiring intubation: (3) Metabolic acidosis: (4) Cardiac arrhythmia: (5) Cardiac arrest: (6) CHF (congestive heart failure): (7) Type 2 diabetes mellitus, without long-term current use of insulin: Qualifiers: Diabetes mellitus complication status: with circulatory complication (8) CAD (coronary artery disease): (9) History of IA (myocardial infarction): (10) Transaminitis: Plan Wean the sedation and try to extubate. At some point he will need a defibrillator. I suspect he will need a INTERLOCKING AND SIGNAL MECHANIC device so ultimately will need to be transferred to have this done. The previous transthoracic echo was a poor quality study and could not accurately estimate the ejection fraction. 1 could obtain a MUGA scan or do a transesophageal echocardiogram to assess the ejection fraction. This will be helpful in determining whether he needs a INTERLOCKING AND SIGNAL MECHANIC device or a single wire defibrillator. Attestations Medical Necessity Statement*: Continued hospitalization for management of out of hospital cardiac arrest and High Time for a total of 45 minutes, includes reviewing past or interval history, examining/interviewing patient, discussing plan of care with staff, communicating with other healthcare providers and documenting encounter Diagnoses MILLY (acute kidney injury) N17.9 Respiratory failure requiring intubation J96.90 Metabolic acidosis E87.20 Cardiac arrhythmia I49.9 Cardiac arrest I46.9 CHF (congestive heart failure) I50.9 Type 2 diabetes mellitus, without long-term current use of insulin E11.9 Diabetes mellitus complication status: with circulatory complication CAD (coronary artery disease) I25.10 History of IA (myocardial infarction) I25.2 Transaminitis R74.01
--- NOTE | 2023-01-02 08:09 | USCV_ITS ---
Jaskaran Brown Age: 77 Gender: M : 1945 Exam Date: 01/02/2023 09:42 Ordering Phys: Leticia Stephen MD Technologist: Benji Cordero [place] [facility] [place]: dvt PROCEDURES: The following venous structures were evaluated: common femoral vein, profunda vein, proximal portion of the greater saphenous vein, superficial femoral vein, and the popliteal vein. Bilaterally, the common femoral, superficial femoral, profunda femoral, popliteal, posterior tibial, greater saphenous veins, and the peroneal trunk were identified and interrogated in the standard fashion. FINDINGS: Normal 2-D Doppler and augmentation and compressibility throughout the lower extremity venous structures. Additional imaging through the proximal calf veins also reveals no thrombus. Limited evaluation of the greater saphenous vein is patent with no thrombus. CONCLUSIONS No DVT bilateral lower extremities. Dr. Connie Jansen DO (Electronically Signed) Final Date: 02 January 2023 13:01 S
--- NOTE | 2023-01-02 08:09 | NM_ITS ---
WS: [id number] NUCLEAR MEDICINE VENTILATION/PERFUSION LUNG SCAN HISTORY: cardiac arrest COMPARISON: None available. TECHNIQUE: Ventilation: 28.2 mCi of Technetium 99 DTPA aerosol inhaled. Perfusion: 5.4 mCi of technetium 99m MAA IV. Heterogeneous deposition of radionuclide centrally. Very poor ventilation. Much better perfusion to b oth lungs. There are no wedge-shaped unmatched defects to suggest a pulmonary emboli. Slight elevatio n of the RIGHT hemidiaphragm. IMPRESSION: Low probability of pulmonary embolism.
[2023-01-02] MEDS: clopidogrel 75 mg Tablet PO (09:39)
[2023-01-02] MEDS: carvedilol 3.125 mg Tablet PO ×2 (09:39→17:09)
[2023-01-02] MEDS: pantoprazole 40 mg SDV IVP ×2 (09:39→17:09)
[2023-01-02] MEDS: atorvastatin 40 mg Tablet PO (09:39)
[2023-01-02] MEDS: enoxaparin 120 mg/0.8 mL Syringe 110 MG SUBCUT (10:11)
--- NOTE | 2023-01-02 11:23 | PM.PN ---
Subjective Subjective: High D-dimer noticed Requested VQ scan and venous Doppler Currently on therapeutic Lovenox Stent is patent Patient has been extubated around 11 AM [facility] was reached out for [facility], they do not have any beds at We will try to reach out to [place] [facility] then will try [place] Dr. Chow is not on-call Detailed family meeting conducted today Patient examined multiple times Vitals/I&O/Wt Last Vital Signs Pulse 109 H 01/02/23 05:45 Resp 20 H 01/02/23 09:31 BP 89/64 01/02/23 05:45 Pulse Ox 95 01/02/23 08:19 O2 Del Method Mechanical Ventilation 01/02/23 05:45 FiO2 40 01/02/23 09:31 01/01/23 01/02/23 01/02/23 22:59 06:59 14:59 Intake Total 247.437 / 247.437 629.533 / 876.970 150 / 150 Output Total 950 / 950 Balance 247.437 / 247.437 -320.467 / -73.030 150 / 150 Weight last 48 hrs Weight 111.13 kg Physical Exam Narrative: Patient is extubated to nasal cannula Still confused Able to move his extremities We will do speech evaluation shortly Lower extremity no significant swelling Abdomen slightly distended nontender Mild crackles at base of the lungs Blood pressure 117/64 mmHg Sinus rhythm S1, S2 and daughter at the bedside Urinary Catheter Management: Park: Cath Placed During This Visit: yes Reason for Continuing Indwelling Catheter: Accurate Measurement of Urinary Output in Critically Ill Patients Urinary Catheter Date of Insertion: 01/01/23 Urinary Catheter Time of Insertion: 18:10 Data 01/02/23 04:10 01/02/23 06:10 A&P Assessment and plan (1) MILLY (acute kidney injury): (2) Respiratory failure requiring intubation: (3) Metabolic acidosis: (4) Cardiac arrhythmia: (5) Cardiac arrest: (6) CHF (congestive heart failure): (7) Type 2 diabetes mellitus, without long-term current use of insulin: Qualifiers: Diabetes mellitus complication status: with circulatory complication (8) CAD (coronary artery disease): (9) History of FL (myocardial infarction): (10) Pulseless ventricular tachycardia: (11) Transaminitis: (12) Aspiration pneumonia: (13) Hypokalemia: Plan Pulseless V. tach/V-fib Defibrillated x2 status post lidocaine Return of ROSC Patient successfully extubated 01/02 11 AM Still confused, requiring nasal cannula Able to move extremities Speech evaluation to be done today Requested physical therapy Cardiac cath report: Patent stent, chronically occluded LAD most likely the culprit vessel for arrhythmia Patient will need AICD for secondary prevention [facility] is full, we will try to reach out to [place] and [facility] before reaching out to [facility] [place] [facility] MILLY: Prerenal: Cardiorenal: Anticipate improvement with diuresis Judicious diuretics use Metabolic acidosis: Lactic acidemia: Improving Mild hypokalemia: Replenish Replenish magnesium as well Aspiration pneumonia: Left-sided infiltrate continue Zosyn Patient is off Levophed Patient is full code We will start diet after speech eval Continue PT High D-dimer: Rule out PE/DVT: Requested VQ scan and venous Doppler: Continue therapeutic Lovenox Patient needs AICD for secondary prevention Patient was examined multiple times, multiple phone calls made, trying to arrange transfer Attestations Medical Necessity Statement*: Continue ICU management and High Time for a total of 90 minutes, includes reviewing past or interval history, examining/interviewing patient, placing orders, counseling patient/family/other support, updating patient/family/other support, discussing plan of care with staff, communicating with other healthcare providers, documenting encounter and coordinating care Diagnoses MILLY (acute kidney injury) N17.9 Respiratory failure requiring intubation J96.90 Metabolic acidosis E87.20 Cardiac arrhythmia I49.9 Cardiac arrest I46.9 CHF (congestive heart failure) I50.9 Type 2 diabetes mellitus, without long-term current use of insulin E11.9 Diabetes mellitus complication status: with circulatory complication CAD (coronary artery disease) I25.10 History of FL (myocardial infarction) I25.2 Pulseless ventricular tachycardia I47.29 Transaminitis R74.01 Aspiration pneumonia J69.0 Hypokalemia E87.6
--- NOTE | 2023-01-02 12:25 | PC.NURSE ---
Patient extubated at [address] Hunt orders
[2023-01-02] MEDS: potassium chloride oral liq 20 mEq/15 mL UDC 40 MEQ PO (12:29)
[2023-01-02] MEDS: magnesium sulfate premix 1 GM/100 ML PIGGYBACK IV (12:30)
--- NOTE | 2023-01-02 18:55 | PC.NURSE ---
Report called to [facility] nurse DANIEL Soto 4D [id number] 2. [phone], air transport being arranged per patient request.
--- NOTE | 2023-01-02 19:23 | PM.TDS ---
Transfer Summary Providers Date of Admission: 01/01/23 18:57 Date of Discharge/Transfer: 01/02/23 Attending Provider at Admission: Navid Beach MD Attending Provider at Transfer: Leticia Stephen MD Primary Care Provider: Renate Trevizo DO Transfer Plans: Anticipated date of transfer: 01/02/23. Diagnoses at Discharge Discharge Diagnosis (1) MILLY (acute kidney injury): Status: Acute (2) Respiratory failure requiring intubation: Status: Acute (3) Metabolic acidosis: Status: Acute (4) Cardiac arrhythmia: Status: Acute (5) Cardiac arrest: Status: Acute (6) CHF (congestive heart failure): Status: Acute (7) Type 2 diabetes mellitus, without long-term current use of insulin: Status: Acute Qualifiers: Diabetes mellitus complication status: with circulatory complication (8) CAD (coronary artery disease): Status: Acute (9) History of IN (myocardial infarction): Status: Acute (10) Pulseless ventricular tachycardia: Status: Acute (11) Transaminitis: Status: Acute (12) Aspiration pneumonia: Status: Acute (13) Hypokalemia: Status: Acute Reason for Visit Reason for Visit cpr Hospital Course Hospital Course 77-year-old male who had a cardiac arrest in the field when he was shopping at a plumbing store, in the parking lot 3 ladies did the CPR until EMS arrived, patient was shocked x1, i-gel was inserted, second shock was given in route to the hospital and he was given lidocaine, in the ER he was intubated, ROSC was obtained, patient went to the [facility] which showed patent left circumflex stent which was placed in October, he has chronically occluded LAD, patient was put on therapeutic Lovenox for possible DVT/PE for high D-dimer, patient was successfully extubated on 01/02 at 11 AM, he is able to move extremities, able to eat diet, seems to be taking time to comprehend however able to tell me his date of and name of his , patient needs an AICD for secondary prevention, his initial rhythm was pulseless V. tach/V-fib, his EF is 20 to 25%, potassium and magnesium replenished Multiple hospitals were approach, he is being air[facility]ed [facility] for AICD placement Patient and family in agreement Patient has [facility] membership Physical Exam Narrative: Patient is extubated to nasal cannula Able to move his extremities We will do speech evaluation shortly Lower extremity no significant swelling Abdomen slightly distended nontender Mild crackles at base of the lungs Blood pressure 117/64 mmHg Sinus rhythm S1, S2 ? and daughter at the bedside Urinary Catheter Management: Park: Cath Placed During This Visit: yes Reason for Continuing Indwelling Catheter: Accurate Measurement of Urinary Output in Critically Ill Patients Urinary Catheter Date of Insertion: 01/01/23 Urinary Catheter Time of Insertion: 18:10 TS Data Studies Completed and Pending Pending at discharge Category Date Time Status CMP [Comprehensive Metabolic Panel] AM LABS Lab 01/03/23 04:00 Ordered Sputum Culture and Gram Stain Routine Lab 01/01/23 17:05 Results Labs from last 24 hours 01/02/23 01/02/23 01/02/23 06:10 05:06 04:10 WBC RBC Hgb Hct MCV MCH MCHC RDW Plt Count MPV Neut % (Auto) Lymph % (Auto) [place] % (Auto) Eos % (Auto) Baso % (Auto) Neut # (Auto) Lymph # (Auto) [place] # (Auto) Eos # (Auto) Baso # (Auto) Nucleated RBC % (auto) Nucleated RBCs # APTT D-Dimer Specimen Type Arterial Sample Site Radial, left ABG pH 7.44 ABG pCO2 36.1 ABG pO2 100.0 ABG HCO3 24.4 ABG Base Excess 0.7 [place] Test Pos Hematocrit 51.7 O2 Delivery Device Vent FiO2 40.0 Tidal Volume 0.50 PEEP 5.0 Parts Sales Counterperson ID Alewe Sodium 137 Cancelled Potassium 3.7 Cancelled Chloride 101 Cancelled Carbon Dioxide 23 Cancelled Anion Gap 16.7 Cancelled BUN 24 H Cancelled Creatinine 1.4 H Cancelled GFR Calculation Not Reportable Cancelled Glucose 178 H Cancelled Calculated Osmolality 292 Cancelled Lactic Acid (Sepsis) Calcium 8.4 L Cancelled Phosphorus 3.6 Cancelled Magnesium 1.8 Cancelled Total Bilirubin 0.7 Cancelled AST 64 H Cancelled ALT 173 H Cancelled Alkaline Phosphatase 84 Cancelled Troponin T 120 Minute Delta Troponin T Troponin T Hi Sens 6Hr Troponin T Hi Sens 6Hr Delta C-Reactive Protein 22.6 H Cancelled NT-Pro-B Natriuret Pep Total Protein 6.8 Cancelled Albumin 4.0 Cancelled Globulin 2.8 Cancelled Vitamin B12 Procalcitonin 09/01/01/23 01/01/23 04:10 23:20 20:35 WBC 8.65 RBC 5.14 Hgb 16.30 Hct 47.4 MCV 92.2 MCH 31.7 MCHC 34.4 RDW 12.7 Plt Count 156 L MPV 10.5 H Neut % (Auto) 53.4 Lymph % (Auto) 33.6 [place] % (Auto) 9.7 Eos % (Auto) 2.2 Baso % (Auto) 0.6 Neut # (Auto) 4.62 Lymph # (Auto) 2.9 [place] # (Auto) 0.8 Eos # (Auto) 0.2 Baso # (Auto) 0.1 Nucleated RBC % (auto) 0 Nucleated RBCs # 0.0 APTT D-Dimer Specimen Type Sample Site ABG pH ABG pCO2 ABG pO2 ABG HCO3 ABG Base Excess [place] Test Hematocrit O2 Delivery Device FiO2 Tidal Volume PEEP Parts Sales Counterperson ID Sodium Potassium Chloride Carbon Dioxide Anion Gap BUN Creatinine GFR Calculation Glucose Calculated Osmolality Lactic Acid (Sepsis) 2.4 H Calcium Phosphorus Magnesium Total Bilirubin AST ALT Alkaline Phosphatase Troponin T 120 Minute Delta Troponin T Troponin T Hi Sens 6Hr 199.4 H Troponin T Hi Sens 6Hr Delta 181.4 H* C-Reactive Protein NT-Pro-B Natriuret Pep Total Protein Albumin Globulin Vitamin B12 Procalcitonin 01/01/23 01/01/23 01/01/23 20:35 20:35 16:38 WBC RBC Hgb Hct MCV MCH MCHC RDW Plt Count MPV Neut % (Auto) Lymph % (Auto) [place] % (Auto) Eos % (Auto) Baso % (Auto) Neut # (Auto) Lymph # (Auto) [place] # (Auto) Eos # (Auto) Baso # (Auto) Nucleated RBC % (auto) Nucleated RBCs # APTT 34.5 D-Dimer Specimen Type Sample Site ABG pH ABG pCO2 ABG pO2 ABG HCO3 ABG Base Excess [place] Test Hematocrit O2 Delivery Device FiO2 Tidal Volume PEEP Parts Sales Counterperson ID Sodium Potassium Chloride Carbon Dioxide Anion Gap BUN Creatinine GFR Calculation Glucose Calculated Osmolality Lactic Acid (Sepsis) Calcium Phosphorus Magnesium 1.9 Total Bilirubin AST ALT Alkaline Phosphatase Troponin T 120 Minute 247.7 H Delta Troponin T 229.7 H* Troponin T Hi Sens 6Hr Troponin T Hi Sens 6Hr Delta C-Reactive Protein NT-Pro-B Natriuret Pep 342 Total Protein Albumin Globulin Vitamin B12 362 Procalcitonin 0.05 01/01/23 16:38 WBC RBC Hgb Hct MCV MCH MCHC RDW Plt Count MPV Neut % (Auto) Lymph % (Auto) [place] % (Auto) Eos % (Auto) Baso % (Auto) Neut # (Auto) Lymph # (Auto) [place] # (Auto) Eos # (Auto) Baso # (Auto) Nucleated RBC % (auto) Nucleated RBCs # APTT D-Dimer 3.34 H Specimen Type Sample Site ABG pH ABG pCO2 ABG pO2 ABG HCO3 ABG Base Excess [place] Test Hematocrit O2 Delivery Device FiO2 Tidal Volume PEEP Parts Sales Counterperson ID Sodium Potassium Chloride Carbon Dioxide Anion Gap BUN Creatinine GFR Calculation Glucose Calculated Osmolality Lactic Acid (Sepsis) Calcium Phosphorus Magnesium Total Bilirubin AST ALT Alkaline Phosphatase Troponin T 120 Minute Delta Troponin T Troponin T Hi Sens 6Hr Troponin T Hi Sens 6Hr Delta C-Reactive Protein NT-Pro-B Natriuret Pep Total Protein Albumin Globulin Vitamin B12 Procalcitonin Completed Studies During Hospitalization Category Date Time Status CT head wo con* [id number] Stat Cat Scan 01/01/23 16:29 Completed [employer] request for service Routine Exams 01/01/23 18:08 Completed CXRP [XR chest 1V portable [id number]] Stat Exams 01/01/23 22:26 Completed XR chest 1V portable [id number] Routine Exams 01/02/23 06:00 Completed XR chest 1V portable [id number] Stat Exams 01/01/23 16:23 Completed NM pulmonary ventilation and perfusion [NM pul vent and Nuc Med 01/02/23 08:09 Completed perfus* [id number]] [place] [id number] Routine Ultrasound 01/02/23 08:09 Completed CV. echo wo/w contrast [id number] Routine Ultrasound 01/01/23 19:10 Completed Laboratory Last Values WBC 8.65 10^3/uL (3.29-11.43) 01/02/23 04:10 RBC 5.14 10^6/uL (3.85-5.65) 01/02/23 04:10 Hgb 16.30 g/dL (11.27-16.99) 01/02/23 04:10 Hct 47.4 % (37-53) 01/02/23 04:10 MCV 92.2 fl (82-101) 01/02/23 04:10 MCH 31.7 pg (27-33) 01/02/23 04:10 MCHC 34.4 g/dL (30-55) 01/02/23 04:10 RDW 12.7 % (12.1-15.1) 01/02/23 04:10 Plt Count 156 10^3/cmm (157-399) L 01/02/23 04:10 MPV 10.5 fL (7.4-10.4) H 01/02/23 04:10 Neut % (Auto) 53.4 % 01/02/23 04:10 Lymph % (Auto) 33.6 % 01/02/23 04:10 [place] % (Auto) 9.7 % 01/02/23 04:10 Eos % (Auto) 2.2 % 01/02/23 04:10 Baso % (Auto) 0.6 % 01/02/23 04:10 Neut # (Auto) 4.62 10^3/uL (1.8-7.7) 01/02/23 04:10 Lymph # (Auto) 2.9 10^3/uL (0.8-4.8) 01/02/23 04:10 [place] # (Auto) 0.8 10^3/uL (0.2-0.9) 01/02/23 04:10 Eos # (Auto) 0.2 10^3/uL (0.0-0.8) 01/02/23 04:10 Baso # (Auto) 0.1 10^3/uL (0.0-0.1) 01/02/23 04:10 Nucleated RBC % (auto) 0 % 01/02/23 04:10 Nucleated RBCs # 0.0 /100WBC 01/02/23 04:10 PT 14.20 SECONDS (12.1-14.9) 01/01/23 16:38 INR 1.07 (0.8-1.2) 01/01/23 16:38 APTT 34.5 SECONDS (23.9-36.7) 01/01/23 20:35 D-Dimer 3.34 ug/mLFEU (0-0.59) H 01/01/23 16:38 Specimen Type Arterial 01/02/23 05:06 Sample Site Radial, left 01/02/23 05:06 ABG pH 7.44 (7.35-7.45) 01/02/23 05:06 ABG pCO2 36.1 mmHg (35-45) 01/02/23 05:06 ABG pO2 100.0 mmHg (80.0-100.0) 01/02/23 05:06 ABG HCO3 24.4 mmol/L (22-26) 01/02/23 05:06 ABG O2 Saturation 98.4 01/01/23 17:49 ABG Base Excess 0.7 mmol/L (-2.0-2.0) 01/02/23 05:06 [place] Test Pos 01/02/23 05:06 A-a O2 Gradient 41.6 mmHg (5-10) H 01/01/23 17:49 Hematocrit 51.7 % (42-52) 01/02/23 05:06 Hgb O2 Saturation 97.8 % (95-100) 01/01/23 17:49 Carboxyhemoglobin 0.5 %THgb (0.4-20.1) 01/01/23 17:49 Methemoglobin 0.1 % (0.4-1.5) L 01/01/23 17:49 Total Hemoglobin 16.7 g/dL (14-18) 01/01/23 17:49 Sodium 138.0 mmol/L (131-143) 01/01/23 17:49 Potassium 4.2 mmol/L (3.5-5.0) 01/01/23 17:49 Glucose 173.0 mg/dL (70-115) H 01/01/23 17:49 Ionized Calcium 1.2 mmol/L (1.1-1.4) 01/01/23 17:49 O2 Delivery Device Vent 01/02/23 05:06 FiO2 40.0 % 01/02/23 05:06 Tidal Volume 0.50 01/02/23 05:06 PEEP 5.0 cmH20 01/02/23 05:06 Parts Sales Counterperson ID Alewe 01/02/23 05:06 Sodium 137 mmol/L (136-145) 01/02/23 06:10 Potassium 3.7 mmol/L (3.5-5.1) 01/02/23 06:10 Chloride 101 mmol/L (98-107) 01/02/23 06:10 Carbon Dioxide 23 mmol/L (22-29) 01/02/23 06:10 Anion Gap 16.7 (5-19) 01/02/23 06:10 BUN 24 mg/dL (8-23) H 01/02/23 06:10 Creatinine 1.4 mg/dL (0.7-1.2) H 01/02/23 06:10 GFR Calculation Not Reportable 01/02/23 06:10 Glucose 178 mg/dL (65-115) H 01/02/23 06:10 Calculated Osmolality 292 mOsm/kg (285-295) 01/02/23 06:10 Lactic Acid 4.4 mmol/L (0.5-2.2) H* 01/01/23 16:38 Lactic Acid (Sepsis) 2.4 mmol/L (0.5-2.2) H 01/01/23 20:35 Calcium 8.4 mg/dL (8.5-10.5) L 01/02/23 06:10 Phosphorus 3.6 mg/dL (2.5-4.5) 01/02/23 06:10 Magnesium 1.8 mg/dL (1.7-2.3) 01/02/23 06:10 Total Bilirubin 0.7 mg/dL (0.15-1.2) 01/02/23 06:10 AST 64 U/L (0-40) H 01/02/23 06:10 ALT 173 U/L (0-41) H 01/02/23 06:10 Alkaline Phosphatase 84 U/L (40-130) 01/02/23 06:10 Troponin T Baseline 18 ng/L (0-15) H 01/01/23 16:38 Troponin T 120 Minute 247.7 ng/L (0-15) H 01/01/23 20:35 Delta Troponin T 229.7 ABS# (0-10) H* 01/01/23 20:35 Troponin T Hi Sens 6Hr 199.4 ng/L (0-15) H 01/01/23 23:20 Troponin T Hi Sens 6Hr Delta 181.4 ng/L (0-12) H* 01/01/23 23:20 C-Reactive Protein 22.6 mg/L (0.0-4.9) H 01/02/23 06:10 NT-Pro-B Natriuret Pep 342 pg/mL (0-450) 01/01/23 16:38 Total Protein 6.8 g/dL (6.6-8.7) 01/02/23 06:10 Albumin 4.0 g/dL (3.5-5.2) 01/02/23 06:10 Globulin 2.8 g/dL (1.3-4.6) 01/02/23 06:10 Vitamin B12 362 pg/mL (232-1245) 01/01/23 16:38 Procalcitonin 0.05 ng/mL (0-0.5) 01/01/23 16:38 Urine Color Yellow (Yellow) 01/01/23 17:35 Urine Appearance Clear (CLEAR) 01/01/23 17:35 Urine pH 5 (5-7) 01/01/23 17:35 Ur Specific [place] 1.020 (1.005-1.030) 01/01/23 17:35 Urine Protein 3+ (Negative) H 01/01/23 17:35 Urine Glucose (UA) 4+ (Normal) H 01/01/23 17:35 Urine Ketones Negative (Negative) 01/01/23 17:35 Urine Blood 2+ (Negative) H 01/01/23 17:35 Urine Nitrate Negative (Negative) 01/01/23 17:35 Urine Bilirubin Neg (Negative) 01/01/23 17:35 Urine Urobilinogen 4 mg/dL (Negative) H 01/01/23 17:35 Ur Leukocyte Esterase Negative (Negative) 01/01/23 17:35 Urine RBC 5-10 /hpf (0-2) H 01/01/23 17:35 Urine WBC 5-10 /hpf (0-5) H 01/01/23 17:35 Ur Squamous Epith Cells 0-4 /hpf (0-5) H 01/01/23 17:35 Amorphous Sediment 3+ /hpf 01/01/23 17:35 Urine Bacteria Trace /hpf (NONE) 01/01/23 17:35 Hyaline Casts 0-4 /lpf H 01/01/23 17:35 Fine Granular Casts 0-4 /lpf H 01/01/23 17:35 Urine Mucus 2+ /hpf 01/01/23 17:[address] 01/01/23 16:29 IMPRESSION: No acute intracranial abnormality. Chest X-Ray 01/02/23 06:00 IMPRESSION: 1. Scattered patchy airspace opacities, stable. 2. Left basilar costophrenic opacity, stable, which may represent atelectasis, aspiration, and/or pleural effusion. Recent Clincial Data Last Vital Signs Pulse 65 01/02/23 17:01 Resp 16 01/02/23 17:01 BP 89/64 01/02/23 05:45 Pulse Ox 98 01/02/23 17:01 O2 Del Method Nasal Cannula 01/02/23 17:01 O2 Flow Rate 2 01/02/23 17:01 FiO2 40 01/02/23 09:31 Vital Signs Pulse Resp Pulse Ox O2 Del Method O2 Flow Rate FiO2 01/02/23 17:01 65 16 98 Nasal Cannula 2 01/02/23 15:50 107 H 01/02/23 09:31 20 H 40 01/02/23 08:00 40 01/02/23 08:19 15 95 40 Intake & Output/Weight 12/31/22 01/01/23 01/02/23 01/03/23 06:59 06:59 06:59 06:59 Intake Total 876.970 / 876.970 662.279 / 662.279 Output Total 950 / 950 550 / 550 Balance -73.030 / -73.030 112.279 / 112.279 Weight 111.13 kg Vitals Last Vital Signs Pulse 65 01/02/23 17:01 Resp 16 01/02/23 17:01 BP 89/64 01/02/23 05:45 Pulse Ox 98 01/02/23 17:01 O2 Del Method Nasal Cannula 01/02/23 17:01 O2 Flow Rate 2 01/02/23 17:01 FiO2 40 01/02/23 09:31 TS Medications Medications Acetaminophen (Acetaminophen 500 Mg Tablet) 500 mg PO Q4H PRN PRN Reason: fever Albuterol/Ipratropium (Ipratropium-Albuterol 3 Ml Neb) 3 ml INHALATION Q6H.RESP PRN PRN Reason: SHORTNESS OF BREATH Aspirin (Aspirin 81 Mg Ec Tablet) 81 mg PO BEDTIME@2100 [facility] Last Admin: 01/01/23 20:16 Dose: 81 mg Atorvastatin Calcium (Atorvastatin 40 Mg Tablet) 40 mg PO DAILY [facility] Last Admin: 01/02/23 09:39 Dose: 40 mg Carvedilol (Carvedilol 3.125 Mg Tablet) 3.125 mg PO BID [facility] Last Admin: 01/02/23 17:09 Dose: 3.125 mg Clopidogrel Bisulfate (Clopidogrel 75 Mg Tablet) 75 mg PO DAILY [facility] Last Admin: 01/02/23 09:39 Dose: 75 mg Enoxaparin Sodium (Enoxaparin 120 Mg/0.8 Ml Syringe) 110 mg SUBCUT Q12H [facility] Last Admin: 01/02/23 10:11 Dose: 110 mg Furosemide (Furosemide 10 Mg/Ml Sdv 10ml) 40 mg IVP Q24H [facility] Last Admin: 01/01/23 20:16 Dose: 40 mg Fentanyl 1,000 mcg/ Sodium (Chloride) 100 mls @ 0 mls/hr IV .Q0M [facility]; Protocol Last Titration: 01/01/23 21:45 Dose: Infused Propofol (Diprivan) 1,000 mg in 100 mls @ 0 mls/hr IV .Q0M [facility]; Protocol Last Titration: 01/02/23 09:00 Dose: Infused Heparin Sodium/Sodium Chloride (Heparin Drip) 25,000 unit in 500 mls @ 26.671 mls/hr IV .[id number] [facility] Last Admin: 01/02/23 10:44 Dose: Not Given Norepinephrine Bitartrate 4 mg (/ Dextrose) 254 mls @ 0 mls/hr IV .Q0M PRN; Protocol PRN Reason: map <65mmhg Last Titration: 01/02/23 11:00 Dose: 0 mcg/min, 0 mls/hr Piperacillin Sod/Tazobactam (Sod 3.375 gm/ Sodium Chloride) 50 mls @ 12.5 mls/hr IV Q8H [facility] Last Infusion: 01/02/23 17:09 Dose: Infused Fentanyl 2,500 mcg/ Sodium (Chloride) 250 mls @ 0 mls/hr IV .Q0M [facility]; Protocol Last Titration: 01/02/23 11:00 Dose: 0 mcg/hr, 0 mls/hr Ondansetron HCl (Ondansetron 2 Mg/Ml Sdv 2 Ml) 4 mg IVP Q6H PRN PRN Reason: NAUSEA AND VOMITING Pantoprazole Sodium (Pantoprazole Dr 40 Mg Tablet) 40 mg PO DAILY@0630 [facility] Last Admin: 01/02/23 06:31 Dose: 40 mg Pantoprazole Sodium (Pantoprazole 40 Mg Sdv) 40 mg IVP BID [facility] Last Admin: 01/02/23 17:09 Dose: 40 mg Discontinued Medications Etomidate (Etomidate 2 Mg/Ml Inj Sdv 10 Ml) 20 mg IVP NOW ONE Stop: 01/01/23 18:04 Last Admin: 01/01/23 18:05 Dose: 20 mg Fentanyl (Fentanyl 50 Mcg/Ml Inj 2ml) Confirm Administered Dose 100 mcg .ROUTE .STK-MED ONE Stop: 01/01/23 18:06 Heparin Sodium (Porcine) (Heparin 5,000 Unit/Ml Inj 1 Ml) 4,000 unit IVP ONCE ONE Stop: 01/01/23 16:30 Last Admin: 01/01/23 17:15 Dose: 4,000 unit Heparin Sodium (Porcine) (Heparin 5,000 Unit/Ml Inj 1 Ml) Confirm Administered Dose 5,000 unit .ROUTE .STK-MED ONE Stop: 01/01/23 18:02 Heparin Sodium (Porcine) (Heparin 5,000 Unit/Ml Inj 1 Ml) Confirm Administered Dose 10,000 unit .ROUTE .STK-MED ONE Stop: 01/01/23 18:06 Propofol (Diprivan) Confirm Administered Dose 1,000 mg in 100 mls @ as directed .ROUTE .STK-MED ONE Stop: 01/01/23 16:22 Lidocaine HCl (Xylocaine) Confirm Administered Dose 10 mls @ as directed .ROUTE .STK-MED ONE Stop: 01/01/23 18:06 Magnesium Sulfate/Dextrose (Magnesium Sulfate Premix) 1 gm in 100 mls @ 200 mls/hr IV ONCE ONE Stop: 01/02/23 12:29 Last Infusion: 01/02/23 13:27 Dose: Infused Midazolam HCl (Midazolam 1 Mg/Ml Inj 2 Ml) Confirm Administered Dose 2 mg .ROUTE .STK-MED ONE Stop: 01/01/23 18:06 Perflutren Protein Type A Microsphe (Perflutren Protein-A Microsphr 0.22 Mg/Ml Sdv 3 Ml) 0 ml IV ONCE ONE Stop: 01/02/23 06:02 Last Admin: 01/02/23 06:09 Dose: 3 ml Potassium Chloride (Potassium Chloride Oral Liq 20 Meq/15 Ml Udc) 40 meq PO ONCE ONE Stop: 01/02/23 12:01 Last Admin: 01/02/23 12:29 Dose: 40 meq Vecuronium [place] (Vecuronium 10 Mg Sdv) 15 mg IVP ONCE ONE Stop: 01/01/23 18:05 Last Admin: 01/01/23 18:05 Dose: 15 mg Allergies Sulfa (Sulfonamide Antibiotics) Allergy (Verified 12/10/22 09:54) ALGY-Rash Home Medications lansoprazole 30 mg capsule,delayed release 30 mg PO DAILY@0630 11/11/22 [History Confirmed 01/01/23] melatonin 10 mg tablet 10 mg PO BEDTIME PRN Sleep 11/11/22 [History Confirmed 01/01/23] aspirin 81 mg tablet,delayed release (Adult Aspirin Regimen) 81 mg PO BEDTIME@2100 #60 tabs 11/13/22 [Rx Confirmed 01/01/23] carvedilol 3.125 mg tablet 3.125 mg PO BID #60 tabs 11/13/22 [Rx Confirmed 01/01/23] doxylamine succinate 25 mg tablet (Unisom (doxylamine)) 25 mg PO BEDTIME 11/15/22 [History Confirmed 01/01/23] atorvastatin 40 mg tablet 40 mg PO DAILY #90 tabs 11/18/22 [Rx Confirmed 01/01/23] isosorbide mononitrate 30 mg tablet,extended release 24 hr 30 mg PO DAILY #90 tabs 11/18/22 [Rx Confirmed 01/01/23] ranolazine 500 mg tablet,extended release,12 hr 500 mg PO BID #180 tabs 11/18/22 [Rx Confirmed 01/01/23] nitroglycerin 0.4 mg sublingual tablet (Nitrostat) 0.4 mg sublingual Q5M PRN Chest Pain #25 tabs 12/03/22 [Rx Confirmed 01/01/23] empagliflozin 10 mg tablet (Jardiance) 10 mg PO DAILY #90 tabs 12/05/22 [Rx Confirmed 01/01/23] clopidogrel 75 mg tablet 75 mg PO DAILY #60 tabs 12/10/22 [Rx Confirmed 01/01/23] lisinopril 5 mg tablet 5 mg PO DAILY #90 tabs 12/10/22 [Rx Confirmed 01/01/23] Discharge Plan Discharge Patient Disposition: Xfer Other Condition: Stable Prescriptions: No Action isosorbide mononitrate 30 mg tablet extended release 24 hr 30 mg PO DAILY Qty: 90 3RF ranolazine 500 mg tablet extended release 12 hr 500 mg PO BID Qty: 180 3RF atorvastatin 40 mg tablet 40 mg PO DAILY Qty: 90 3RF clopidogrel 75 mg tablet 75 mg PO DAILY Qty: 60 3RF lisinopril 5 mg tablet 5 mg PO DAILY Qty: 90 3RF nitroglycerin [Nitrostat] 0.4 mg tablet, sublingual 0.4 mg SUBLINGUAL Q5M PRN (Reason: Chest Pain) Qty: 25 2RF Rx Instructions: do not exceed 3 doses per episode Jardiance 10 mg tablet 10 mg PO DAILY Qty: 90 0RF melatonin 10 mg Tablet 10 mg PO BEDTIME PRN (Reason: Sleep) lansoprazole 30 mg capsule,delayed release(DR/EC) 30 mg PO DAILY@0630 carvedilol 3.125 mg Tablet 3.125 mg PO BID Qty: 60 0RF aspirin [Adult Aspirin Regimen] 81 mg tablet,delayed release (DR/EC) 81 mg PO BEDTIME@2100 Qty: 60 4RF Unisom (doxylamine) 25 mg Tablet 25 mg PO BEDTIME Discharge Orders: Discharge Order (Routine); Ordered 01/02/23 Ordered By: Leticia Stephen Referrals: Renate Trevizo DO [Primary Care Provider] - Discharge Diet: Cardiac Discharge Activity: Increase activity as tolerated Patient Instructions: Opioid Safety Transfer Attestations Time Spent in Transfer Care: greater than 30 min Quality Metrics Clinical Quality Measures [ No reported AMI, CVA or VTE this stay] Coding Level of Care Code [facility] MILLY (acute kidney injury) N17.9 Respiratory failure requiring intubation J96.90 Metabolic acidosis E87.20 Cardiac arrhythmia I49.9 Cardiac arrest I46.9 CHF (congestive heart failure) I50.9 Type 2 diabetes mellitus, without long-term current use of insulin E11.9 Diabetes mellitus complication status: with circulatory complication CAD (coronary artery disease) I25.10 History of IN (myocardial infarction) I25.2 Pulseless ventricular tachycardia I47.29 Transaminitis R74.01 Aspiration pneumonia J69.0 Hypokalemia E87.6
--- NOTE | 2023-01-02 19:47 | PC.NURSE ---
Addendum entered by Katie Heaton RN 01/02/23 19:51: Witnessed Fentanyl waste with Fantasma Cosby RN. Original Note: Katie Heaton RN witness waste of 66.125ml of Fentanyl
== END 2023-01-02 19:45 | disposition short-term general hospital (02) | DRG 286 ==
LOC: ER 17:58 → CCL 18:01 → ICU 18:57
PROVIDERS: Admitting Provider Internal Medicine Cardiovascular Disease; Emergency Provider Emergency Medicine; PCP Family Medicine; Visit Provider Internal Medicine
PROC: B2111ZZ Fluoroscopy of Multiple Coronary Arteries using Low Osmolar Contrast (ICD-10-PCS; principal; 2023-01-01 18:00)
DX: I49.01 Ventricular fibrillation (principal); J69.0 Pneumonitis due to inhalation of food and vomit; J96.90 Respiratory failure, unspecified, unspecified whether with hypoxia or hypercapnia; N17.9 Acute kidney failure, unspecified; E87.20 Acidosis, unspecified; I50.20 Unspecified systolic (congestive) heart failure; I46.2 Cardiac arrest due to underlying cardiac condition; I25.10 Atherosclerotic heart disease of native coronary artery without angina pectoris; Z95.5 Presence of coronary angioplasty implant and graft; I25.82 Chronic total occlusion of coronary artery; Z79.82 Long term (current) use of aspirin; N40.1 Benign prostatic hyperplasia with lower urinary tract symptoms; G89.29 Other chronic pain; M54.2 Cervicalgia; K21.9 Gastro-esophageal reflux disease without esophagitis; I25.2 Old myocardial infarction; E11.9 Type 2 diabetes mellitus without complications; I47.20 Ventricular tachycardia, unspecified; E87.6 Hypokalemia; I11.0 Hypertensive heart disease with heart failure
CPT/HCPCS: 31500; 36415; 36573; 36592; 36600; 51702; 70450; 71045; 78014; 80051; 80053; 81001; 82330; 82607; 82803; 82805; 83605; 83735; 83880; 84100; 84145; 84484; 85025; 85378; 85610; 85730; 86140; 87070; 87205; 92523; 92610; 93005; 93454; 93970; 94002; 94003; 94799; 96365; 96366; 96367; 96372; 96376; 99291; 99292; A4570; A9540; A9567; C1751; C1769; C1887; C1894; C8929; C9113; J1644; J1650; J1940; J2250; J2543; J2704; J3010; J3475; J7050; J7060; Q9956; Q9967

== ENCOUNTER → 2023-01-13 13:38 | Outpatient (BNVA) | payer MEDICARE, OTHER, SELFPAY | PROVIDERS: PCP Family Medicine; Visit Provider Family Medicine | DX: R74.01 Elevation of levels of liver transaminase levels (principal) | CPT/HCPCS: 80053 ==

== ENCOUNTER → 2023-01-14 14:58 | Outpatient (BNVA) | payer MEDICARE, OTHER, SELFPAY | PROVIDERS: PCP Family Medicine; Visit Provider Internal Medicine | DX: I25.10 Atherosclerotic heart disease of native coronary artery without angina pectoris (principal); Z98.61 Coronary angioplasty status; I25.2 Old myocardial infarction; Z95.810 Presence of automatic (implantable) cardiac defibrillator | CPT/HCPCS: 99214 ==

== ENCOUNTER → 2023-01-29 13:07 | Outpatient (BNVA) | payer MEDICARE, OTHER, SELFPAY | PROVIDERS: PCP Family Medicine; Visit Provider Internal Medicine Cardiovascular Disease | DX: I25.10 Atherosclerotic heart disease of native coronary artery without angina pectoris (principal); R74.01 Elevation of levels of liver transaminase levels; I25.5 Ischemic cardiomyopathy; I46.9 Cardiac arrest, cause unspecified; N17.9 Acute kidney failure, unspecified; I50.9 Heart failure, unspecified; I25.2 Old myocardial infarction; E11.9 Type 2 diabetes mellitus without complications | CPT/HCPCS: 99214 ==

== ENCOUNTER → 2023-05-13 13:13 | Outpatient (BNVA) | payer MEDICARE, OTHER, SELFPAY | PROVIDERS: PCP Family Medicine; Visit Provider Internal Medicine | DX: I25.10 Atherosclerotic heart disease of native coronary artery without angina pectoris (principal); Z98.61 Coronary angioplasty status; I25.2 Old myocardial infarction | CPT/HCPCS: 99214 ==

== ENCOUNTER 2023-05-27 15:22 | Emergency (ER) | payer MEDICARE, OTHER, SELFPAY ==
[2023-05-27 15:26] VITALS: BP 134/87; PULSE 83; RESP 16; TEMP 36.5; O2SAT 96
[2023-05-27 17:54] VITALS: BP 144/81; PULSE 67; O2SAT 97
--- NOTE | 2023-05-27 18:08 | ED_ITS ---
HPI - Nausea/Vomiting/Diarrhea 2 General: Chief complaint: Nausea/Vomiting/Diarrhea Stated complaint: diarrhea Time Seen by Provider: 05/27/23 17:36 Source: patient Mode of arrival: ambulatory Limitations: no limitations History of Present Illness: 77-year-old male states that over the la st 2 days had some lower abdominal cramping states he had diarrhea over the last 2 days it has been very watery states that he did take an Imodium over the last 2 days and is actually improved had some mild weakness denies any vomiting denies any fever denies any severe pains. Associated nausea: No Associated symtoms: Denies chest pain, headache(s) or nausea Review of Systems 2 Const: Denies: fever(s), chills, body aches or change in appetite ENMT: Denies: throat pain or dental pain Card: Denies: chest pain Resp: Denies: dyspnea GI: Reports: abdominal pain and diarrhea; Denies: nausea or vomiting Musc: Denies: neck pain or back pain Skin/Breast: Denies: rash Neuro: Denies: headache(s) PFSH ED 2 PFSH: Medical History Ischemic cardiomyopathy Hypokalemia Aspiration pneumonia Pulseless ventricular tachycardia Transaminitis MILLY (acute kidney injury) Respiratory failure requiring intubation Metabolic acidosis Cardiac arrhythmia Cardiac arrest CHF (congestive heart failure) Unstable angina pectoris GERD (gastroesophageal reflux disease) Type 2 diabetes mellitus, without long-term current use of insulin History of colon polyps Diverticulitis of sigmoid colon Chronic neck pain CAD (coronary artery disease) History of CT (myocardial infarction) 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 Mother , AT AGE 88-ALZHEIMERS No problems noted. Other CAD (coronary artery disease) Cancer Diabetes Hypertension Denies family history of Anesthesia complication Bleeding disorder Social History Smoking and tobacco/nicotine status: never used tobacco/nicotine Alcohol intake: current Alcohol intake frequency: 0-2 Drinks per Day Substance/Drug Use: never Household members: spouse Marital status: Current occupational status: retired Physical Exam 2 Const: COMMON NORMALS: no acute distress, patient oriented x3 and healthy appearing HENMT: COMMON NORMALS: normocephalic and atraumatic HEAD & SCALP: n ormocephalic and atraumatic Eye: COMMON NORMALS: Equal, round and reactive pupils present PUPIL: Yes Equal, round and reactive pupils present Neck/C-Spine: COMMON NORMALS: full ROM and supple Chest: COMMONS NORMALS: normal inspection of the chest Resp: COMMON NORMALS: normal respiratory effort Cardio: COMMON NORMALS: regular rate, regular rhythm and No murmurs present (Cardio) RATE: regular rate RHYTHM: regular rhythm GI: COMMON NORMALS: Normal to inspection, nondistended, normoactive bowel sounds present, Soft to palpation, non-tender and no masses PALPATION: Yes Soft to palpation Extremity: COMMON NORMALS: normal to inspection and full ROM Neuro: COMMON NORMALS: patient oriented x3, moves all extremities and no focal motor deficits Psych: COMMON NORMALS: mental status grossly normal, Normal thought process present and cooperative THOUGHT PROCESS: Normal thought process present Skin: COMMON NORMALS: no rashes or lesions noted and no wounds GENERAL SKIN EXAM: no rashes or lesions noted Course 2 Vital Signs: Vital signs: Vital Signs Temperature 97.7 F 05/27/23 15:26 Pulse Rate 70 05/27/23 18:29 Respiratory Rate 16 05/27/23 15:26 Blood Pressure 130/80 05/27/23 18:29 Pulse Oximetry 97 05/27/23 18:29 Oxygen Delivery Me thod Room Air 05/27/23 18:29 MDM - Nausea/Vomiting/Diarrhea Medical Decision Making Patient been since she had diarrhea that is improving well-appearing here blood works normal abdominal exam is benign we will send his stool for culture he is follow-up with PCP return if worsening he understands agrees to plan. Medical Records I reviewed the patient's medical records. Lab Data I reviewed the patient's lab results. 05/27/23 18:02 05/27/23 18:02 Laboratory Results WBC 4.62 10^3/uL (3.29-11.43) 05/27/23 18:02 RBC 5.68 10^6/uL (3.85-5.65) H 05/27/23 18:02 Hgb 17.50 g/dL (11.27-16.99) H 05/27/23 18:02 Hct 51.7 % (37-53) 05/27/23 18:02 MCV 91.0 fl (82-101) 05/27/23 18:02 MCH 30.8 pg (27-33) 05/27/23 18:02 MCHC 33.8 g/dL (30-55) 05/27/23 18:02 RDW 13.3 % (12.1-15.1) 05/27/23 18:02 Plt Count 125 10^3/cmm (157-399) L 05/27/23 18:02 MPV 10.6 fL (7.4-10.4) H 05/27/23 18:02 Neut % (Auto) 46.2 % 05/27/23 18:02 Lymph % (Auto) 36.6 % 05/27/23 18:02 [place] % (Auto) 13.2 % 05/27/23 18:02 Eos % (Auto) 3.0 % 05/27/23 18:02 Baso % (Auto) 0.4 % 05/27/23 18:02 Neut # (Auto) 2.13 10^3/uL (1.8-7.7) 05/27/23 18:02 Lymph # (Auto) 1.7 10^3/uL (0.8-4.8) 05/27/23 18:02 [place] # (Auto) 0.6 10^3/uL (0.2-0.9) 05/27/23 18:02 Eos # (Auto) 0.1 10^3/uL (0.0-0.8) 05/27/23 18:02 Baso # (Auto) 0.0 10^3/uL (0.0-0.1) 05/27/23 18:02 Nucleated RBC % (auto) 0 % 05/27/23 18: Nucleated RBCs # 0.0 /100WBC 05/27/23 18:02 Sodium 135 mmol/L (136-145) L 05/27/23 18:02 Potassium 4.0 mmol/L (3.5-5.1) 05/27/23 18:02 Chloride 102 mmol/L (98-107) 05/27/23 18:02 Carbon Dioxide 24 mmol/L (22-29) 05/27/23 18:02 Anion Gap 13.0 (5-19) 05/27/23 18:02 BUN 17 mg/dL (8-23) 05/27/23 18:02 Creatinine 1.0 mg/dL (0.7-1.2) 05/27/23 18:02 GFR Calculation Not Reportable 05/27/23 18:02 Glucose 110 mg/dL (65-115) 05/27/23 18:02 Calculated Osmolality 282 mOsm/kg (285-295) L 05/27/23 18:02 Calcium 8.5 mg/dL (8.5-10.5) 05/27/23 18:02 Total Bilirubin 0.5 mg/dL (0.15-1.2) 05/27/23 18:02 AST 18 U/L (0-40) 05/27/23 18:02 ALT 24 U/L (0-41) 05/27/23 18:02 Alkaline Phosphatase 98 U/L (40-130) 05/27/23 18:02 Total Protein 7.4 g/dL (6.6-8.7) 05/27/23 18:02 Albumin 3.9 g/dL (3.5-5.2) 05/27/23 18:02 Globulin 3.5 g/dL (1.3-4.6) 05/27/23 18:02 Lipase 14 U/L (13-60) 05/27/23 18:02 Urine Color Yellow (Yellow) 05/27/23 19:10 Urine Appearance Clear (CLEAR) 05/27/23 19:10 Urine pH 5 (5-7) 05/27/23 19:10 Ur Specific [place] 1.020 (1.005-1.030) 05/27/23 19:10 Urine Protein Neg (Negative) 05/27/23 19:10 Urine Glucose (UA) 4+ (Normal) H 05/27/23 19:10 Urine Ketones Negative (Negative) 05/27/23 19:10 Urine Blood Neg (Negative) 05/27/23 19:10 Urine Nitrate Negative (Negative) 05/27/23 19:10 Urine Bilirubin Neg (Negative) 05/27/23 19:10 Urine Urobilinogen Norm mg/dL (Negative) 05/27/23 19:10 Ur Leukocyte Esterase Negative (Negative) 05/27/23 19:10 Influenza Type A Ag negative (Negative) 05/27/23 18:12 Influenza Type B Ag negative (Negative) 05/27/23 18:12 No radiology studies performed this visit Discharge Plan Discharge Patient Disposition: Home Clinical Impression: Diarrhea Qualifiers: Diarrhea type: unspecified type Qualified Code(s): R19.7 - Diarrhea, unspecified Condition: Stable Prescriptions: No Action ibuprofen 600 mg tablet 600 mg PO Q8H PRN isosorbide mononitrate 30 mg tablet extended release 24 hr 30 mg PO DAILY Qty: 90 3RF clopidogrel 75 mg tablet 75 mg PO DAILY Qty: 60 3RF lisinopril 5 mg tablet 5 mg PO DAILY Qty: 90 3RF pantoprazole 40 mg tablet,delayed release (DR/EC) 40 mg PO DAILY nitroglycerin [Nitrostat] 0.4 mg tablet, sublingual 0.4 mg SUBLINGUAL Q5M PRN (Reason: Chest Pain) Qty: 25 2RF Rx Instructions: do not exceed 3 doses per episode Jardiance 10 mg tablet 10 mg PO DAILY Qty: 90 0RF lansoprazole 30 mg capsule,delayed release(DR/EC) See Rx Instructions .ROUTE .COMPLEX Qty: 90 0RF Dose Instruction: TAKE 1 CAPSULE BY MOUTH DAILY Rx Instructions: TAKE 1 CAPSULE BY MOUTH DAILY melatonin 10 mg Tablet 10 mg PO BEDTIME PRN (Reason: Sleep) carvedilol 3.125 mg Tablet 3.125 mg PO BID Qty: 60 0RF aspirin [Adult Aspirin Regimen] 81 mg tablet,delayed release (DR/EC) 81 mg PO BEDTIME@2100 Qty: 60 4RF Unisom (doxylamine) 25 mg Tablet 25 mg PO BEDTIME Discharge Orders: Discharge ED (Routine); Ordered 05/27/23 Ordered By: Stephie Malone Referrals: Renate Trevizo DO [Primary Care Provider] - 1-3 days Discharge Diet: Advance as tolerated Discharge Activity: Resume usual activity Patient Instructions: Acute Diarrhea (ED) Coding Level of Care Code ED Jewelry Sales Representative for Denishag Maryse
[2023-05-27] MEDS: diphenoxylate/atropine Tablet 1 TAB PO (18:09)
[2023-05-27 18:23] LABS: Basophils % 0.4 %; Eosinophils # 0.1 10^3/uL (0.0-0.8); Hematocrit 51.7 % (37-53); Lymphocytes # 1.7 10^3/uL (0.8-4.8); Lymphocytes % 36.6 %; Mean Corpuscular HGB Conc 33.8 g/dL (30-55); Mean Corpuscular Hemoglobin 30.8 pg (27-33); Mean Platelet Volume 10.6 fL (7.4-10.4); Monocytes # 0.6 10^3/uL (0.2-0.9); Monocytes % 13.2 %; Neutrophils # 2.13 10^3/uL (1.8-7.7); Neutrophils % 46.2 %; Nucleated Red Blood Cells % 0 %; Platelet Count 125 10^3/cmm (157-399); Red Blood Count 5.68 10^6/uL (3.85-5.65); Red Cell Distribution Width 13.3 % (12.1-15.1); White Blood Count 4.62 10^3/uL (3.29-11.43)
[2023-05-27 18:29] VITALS: BP 130/80; PULSE 70; O2SAT 97
[2023-05-27] MEDS: sodium chloride 0.9% 500 ML 999 ML IV (18:29)
[2023-05-27 18:37] LABS: Influenza A by IFA negative (Negative); Influenza B by IFA negative (Negative)
[2023-05-27 18:42] LABS: Alanine Aminotransferase 24 U/L (0-41); Albumin Level 3.9 g/dL (3.5-5.2); Alkaline Phosphatase 98 U/L (40-130); Aspartate Amino Transferase 18 U/L (0-40); Blood Urea Nitrogen 17 mg/dL (8-23); Calcium 8.5 mg/dL (8.5-10.5); Carbon Dioxide 24 mmol/L (22-29); Chloride 102 mmol/L (98-107); Globulin 3.5 g/dL (1.3-4.6); Glucose 110 mg/dL (65-115); Lipase 14 U/L (13-60); Osmolality Calculated 282 mOsm/kg (285-295); Sodium 135 mmol/L (136-145); Total Bilirubin 0.5 mg/dL (0.15-1.2); Total Protein 7.4 g/dL (6.6-8.7)
[2023-05-27 19:17] LABS: Add Urine Microscopic? NO; Charge for UA Resulting for Rev
[2023-05-27 19:23] LABS: Urine Appearance Clear (CLEAR); Urine Color Yellow (Yellow); pH Urine 5 (5-7)
[2023-05-27 19:24] LABS: Bilirubin Urine Neg (Negative); Blood Urine Neg (Negative); Glucose Urine UA 4+ (Normal); Ketones Urine Negative (Negative); Leukocyte Esterase Urine Negative (Negative); Nitrate Urine Negative (Negative); Protein Urine Neg (Negative); Urobilinogen Urine Norm (Negative)
[2023-05-27 19:31] VITALS: BP 135/82; PULSE 68; RESP 16; O2SAT 97
== END 2023-05-27 19:39 | disposition home or self-care (01) ==
PROVIDERS: Emergency Provider Emergency Medicine; PCP Family Medicine
DX: R19.7 Diarrhea, unspecified (principal); Z79.02 Long term (current) use of antithrombotics/antiplatelets; Z79.82 Long term (current) use of aspirin; I25.5 Ischemic cardiomyopathy; I50.9 Heart failure, unspecified; E11.9 Type 2 diabetes mellitus without complications; I25.10 Atherosclerotic heart disease of native coronary artery without angina pectoris; I25.2 Old myocardial infarction; Z98.61 Coronary angioplasty status
CPT/HCPCS: 36415; 80053; 81003; 83690; 85025; 87804; 96360; 99284; J7040

== ENCOUNTER → 2023-09-17 15:14 | Outpatient (BNVA) | payer MEDICARE, OTHER, SELFPAY | PROVIDERS: PCP Family Medicine; Visit Provider Family Medicine | DX: E11.9 Type 2 diabetes mellitus without complications (principal); Z13.6 Encounter for screening for cardiovascular disorders | CPT/HCPCS: 80053; 83036; 85025 ==

== ENCOUNTER 2023-10-18 15:39 | Emergency (ER) | payer MEDICARE, OTHER, SELFPAY ==
--- NOTE | 2023-10-18 15:39 | ECG_ITS ---
[facility] Test Date: 2023-10-18 Pat Name: Jaskaran Brown Department: Room: Gender: Male Cloth Dyer: : 1945 Requested By: Saba Rivera Order Number: [id number] Aguilar MD: Cody Pierce M.D. Measurements Intervals [place] Rate: 63 P: 79 GA: 166 QRS: -81 QRSD: 154 T: 91 QT: 418 QTc: 431 Interpretive Statements ELECTRONIC ATRIAL PACEMAKER ELECTRONIC VENTRICULAR PACEMAKER ABNORMAL RHYTHM ECG Compared to ECG 01/01/2023 23:20:45 Atrial flutter no longer present Left-axis deviation no longer present Intraventricular conduction delay no longer present Myocardial infarct finding no longer present Electronically Signed On 10-18-2023 21:05:40 CDT by Cody Pierce M.D. [id number]
[2023-10-18 15:46] VITALS: BP 130/77; PULSE 61; RESP 18; TEMP 36.6; O2SAT 98
--- NOTE | 2023-10-18 15:47 | XRR_ITS ---
PROCEDURE INFORMATION: Exam: XR Chest Exam date and time: 10/18/2023 4:02 PM Age: 78 years old Clinical indication: Pain; Angina pectoris; Additional info: Chest pain TECHNIQUE: Imaging protocol: Radiologic exam of the chest. Views: 1 view. COMPARISON: CR (CHEST, ) 01/02/2023 6:08 AM FINDINGS: Lungs: Unremarkable. No consolidation. Pleural spaces: Unremarkable. No pleural effusion. No pneumothorax. Heart/Mediastinum: Unremarkable. No cardiomegaly. Multi lead AICD device is noted on the left. Bones/joints: Unremarkable. XR/XR chest 1V portable [id number] IMPRESSION: No acute findings.
[2023-10-18 16:53] LABS: Basophils % 0.7 %; Eosinophils # 0.2 10^3/uL (0.0-0.8); Lymphocytes # 2.4 10^3/uL (0.8-4.8); Lymphocytes % 43.9 %; Mean Corpuscular HGB Conc 33.5 g/dL (30-55); Mean Corpuscular Hemoglobin 31.6 pg (27-33); Mean Corpuscular Volume 94.3 fl (82-101); Mean Platelet Volume 10.8 fL (7.4-10.4); Monocytes # 0.5 10^3/uL (0.2-0.9); Monocytes % 9.7 %; Neutrophils # 2.23 10^3/uL (1.8-7.7); Nucleated Red Blood Cells % 0 %; Platelet Count 130 10^3/cmm (157-399); Red Blood Count 5.09 10^6/uL (3.85-5.65); Red Cell Distribution Width 13.2 % (12.1-15.1); White Blood Count 5.45 10^3/uL (3.29-11.43)
[2023-10-18 17:24] LABS: Troponin(5th) Baseline 14 ng/L (0-15)
--- NOTE | 2023-10-18 17:29 | ED_ITS ---
HPI - Chest Pain 2 General: Chief Complaint: Chest Pain Stated Complaint: Chest Pain, SOB Time Seen by Provider: 10/18/23 17:25 History of Present Illness: 78-year-old man with a history of hypert ension, hyperlipidemia, coronary artery disease status post stents and he tells me that he coded 4 times in the event with a defibrillator for his heart failure not too long ago, CHF with cardiomyopathy and an EF of around 25%, and diabetes mellitus who presents to the emergency room with chest discomfort. He says for sometimes he had some generalized weakness. This may have been a little bit worse. He says over the last couple days he has been having some mild pressure in his chest. Is been having some dizziness with standing. He has been feeling a little more short of breath than usual as well. No new swelling. No nausea or vomiting. No abdominal pain. No fevers. No cough. Review of Systems 2 Narrative: Constitutional symptoms: Negative except as documented in HPI. Skin symptoms: Negative except as documented in HPI. Eye symptoms: Negative except as documented in HPI. ENMT symptoms: Negative except as documented in HPI. Respiratory symptoms: Negative except as documented in HPI. Cardiovascular symptoms: Negative except as documented in HPI. Gastrointestinal symptoms: Negative except as documented in HPI. Genitourinary symptoms: Negative except as documented in HPI. Musculoskeletal symptoms: Negative except as documented in HPI. Neurologic symptoms: Negative except as documented in HPI. Psychiatric symptoms: Negative except as documented in HPI. Endocrine symptoms: Negative except as documented in HPI. PFSH ED 2 PFSH: Medical History (Updated 10/18/23 @ 19:14 by Saba Lira MD) GERD (gastroesophageal reflux disease) Ischemic cardiomyopathy Hypokalemia Aspiration pneumonia Pulseless ventricular tachycardia Transaminitis MILLY (acute kidney injury) Respiratory failure requiring intubation Metabolic acidosis Cardiac arrhythmia Cardiac arrest CHF (congestive heart failure) Unstable angina pectoris Type 2 diabetes mellitus, without long-term current use of insulin History of colon polyps Diverticulitis of sigmoid colon Chronic neck pain CAD (coronary artery disease) History of [place] (myocardial infarction) 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 Mother , AT AGE 88-[place]ZHEIMERS No problems noted. Other CAD (coronary artery disease) Cancer Diabetes Hypertension Denies family history of Anesthesia complication Bleeding disorder Social History Smoking and tobacco/nicotine status: never used tobacco/nicotine Alcohol intake: current Alcohol intake frequency: 0-2 Drinks per Day Substance/Drug Use: never Household members: spouse Marital status: Current occupational status: retired Physical Exam 2 Narrative: EXAM NARRATIVE: General: Alert, no acute distress. Skin: Warm, dry. Head: Normocephalic, atraumatic. Neck: Supple, trachea midline. Eye: Extraocular movements are intact. Ears, nose, mouth and throat: mucosa moist. Cardiovascular: Regular, Normal peripheral perfusion. Respiratory: Lungs are clear to auscultation, respirations are non-labored, breath sounds are equal, Symmetrical chest wall expansion. Gastrointestinal: Soft, Nontender, Non distended Musculoskeletal: Normal ROM, no deformity. Neurological: Alert and oriented, No focal neurological deficit observed. Psychiatric: Cooperative, appropriate mood & affect. Course 2 Vital Signs: Vital signs: Vital Signs Temperature 97.8 F 10/18/23 15:46 Pulse Rate 62 10/18/23 19:30 Respiratory Rate 16 10/18/23 19:30 Blood Pressure 144/84 10/18/23 19:30 Pulse Oximetry 97 10/18/23 19:30 Oxygen Delivery Me thod Room Air 10/18/23 19:30 MDM - Chest Pain Medical Decision Making Differential diagnosis for patient with chest pain includes but is not limited to and based on the above HPI, review of systems and physical exam: Pneumonia. unstable angina. angina. Acute coronary syndrome / [place]. Pulmonary embolism. Costochondritis / musculoskeletal. Pleurisy. Pericarditis. Esophageal spasm. Pancreatis. Cholecystitis. Orders placed to evaluate differential diagnosis based on the above differential, HPI and physical exam EKG: Time 1539. Rate 63. Normal sinus rhythm, No ST-T changes, no ectopy, paced rhythm, this was reviewed and interpreted by myself the emergency room physician at 1544. Repeat EKG: Time 1837. Rate 60. Normal sinus rhythm, No ST-T changes, no ectopy, paced rhythm, this was reviewed and interpreted by myself the emergency room physician at 1842 Chest x-ray: Stable mild cardiomegaly. Interval placement of an AICD with wires. No acute process. No infiltrate. No pneumothorax. This was reviewed and interpreted by myself the ER physician. Lab Review: Laboratory results were reviewed and interpreted by myself the emergency room physician. Lab work is unremarkable. No leukocytosis. No anemia. No renal failure. Serial troponins are negative. Consultation: I had pacemaker interrogated. I spoke with the and interrogation environmental marketing representative on the telephone. There were no abnormal events over the last couple of months to speak of. I reviewed the patient's medical record. Reexamination: Patient remained stable. No increased work of breathing. No altered mental status. He is had no dysrhythmias. Assessment and plan: Noncardiac chest pain Lightheadedness - Discharged home - Discussed findings and plan with patient. Answered any questions. - All laboratory values were reviewed and interpreted personally by myself, the ER physician - All imaging was reviewed and interpreted personally by myself, the ER physician. - Evaluation and treatment of this problem were appropriate in the emergency setting Lab Data 10/18/23 16:46 10/18/23 16:46 Laboratory Results WBC 5.45 10^3/uL (3.29-11.43) 10/18/23 16:46 RBC 5.09 10^6/uL (3.85-5.65) 10/18/23 16:46 Hgb 16.10 g/dL (11.27-16.99) 10/18/23 16:46 Hct 48.0 % (37-53) 10/18/23 16:46 MCV 94.3 fl (82-101) 10/18/23 16:46 MCH 31.6 pg (27-33) 10/18/23 16:46 MCHC 33.5 g/dL (30-55) 10/18/23 16:46 RDW 13.2 % (12.1-15.1) 10/18/23 16:46 Plt Count 130 10^3/cmm (157-399) L 10/18/23 16:46 MPV 10.8 fL (7.4-10.4) H 10/18/23 16:46 Neut % (Auto) 41.0 % 10/18/23 16:46 Lymph % (Auto) 43.9 % 10/18/23 16:46 Pierce % (Auto) 9.7 % 10/18/23 16:46 Eos % (Auto) 4.0 % 10/18/23 16:46 Baso % (Auto) 0.7 % 10/18/23 16:46 Neut # (Auto) 2.23 10^3/uL (1.8-7.7) 10/18/23 16:46 Lymph # (Auto) 2.4 10^3/uL (0.8-4.8) 10/18/23 16:46 Pierce # (Auto) 0.5 10^3/uL (0.2-0.9) 10/18/23 16:46 Eos # (Auto) 0.2 10^3/uL (0.0-0.8) 10/18/23 16:46 Baso # (Auto) 0.0 10^3/uL (0.0-0.1) 10/18/23 16:46 Nucleated RBC % (auto) 0 % 10/18/23 16:46 Nucleated RBCs # 0.0 /100WBC 10/18/23 16:46 Sodium 139 mmol/L (136-145) 10/18/23 16:46 Potassium 3.7 mmol/L (3.5-5.1) 10/18/23 16:46 Chloride 108 mmol/L (98-107) H 10/18/23 16:46 Carbon Dioxide 23 mmol/L (22-29) 10/18/23 16:46 Anion Gap 11.7 (5-19) 10/18/23 16:46 BUN 18 mg/dL (8-23) 10/18/23 16:46 Creatinine 0.9 mg/dL (0.7-1.2) 10/18/23 16:46 GFR Calculation Not Reportable 10/18/23 16:46 Glucose 136 mg/dL (65-115) H 10/18/23 16:46 Calculated Osmolality 292 mOsm/kg (285-295) 10/18/23 16:46 Calcium 8.4 mg/dL (8.5-10.5) L 10/18/23 16:46 Total Bilirubin 0.3 mg/dL (0.15-1.2) 10/18/23 16:46 AST 15 U/L (0-40) 10/18/23 16:46 ALT 21 U/L (0-41) 10/18/23 16:46 Alkaline Phosphatase 81 U/L (40-130) 10/18/23 16:46 Troponin T Baseline 14 ng/L (0-15) 10/18/23 16:46 Troponin T 120 Minute 14.94 ng/L (0-15) 10/18/23 18:45 Delta Troponin T 0.94 ABS# (0-10) 10/18/23 18:45 C-Reactive Protein 3.1 mg/L (0.0-4.9) 10/18/23 16:46 NT-Pro-B Natriuret Pep 293 pg/mL (0-450) 10/18/23 16:46 Total Protein 6.9 g/dL (6.6-8.7) 10/18/23 16:46 Albumin 3.9 g/dL (3.5-5.2) 10/18/23 16:46 Globulin 3.0 g/dL (1.3-4.6) 10/18/23 16:46 All radiology interpretation(s) finalized by discharge Discharge Plan Discharge Patient Disposition: Home Clinical Impression: Non-cardiac chest pain, Lightheadedness Condition: Stable Prescriptions: No Action ibuprofen 600 mg tablet 600 mg PO Q8H PRN isosorbide mononitrate 30 mg tablet extended release 24 hr 30 mg PO DAILY Qty: 90 3RF nitroglycerin [Nitrostat] 0.4 mg tablet, sublingual 0.4 mg SUBLINGUAL Q5M PRN (Reason: Chest Pain) Qty: 25 2RF Rx Instructions: do not exceed 3 doses per episode lansoprazole 30 mg capsule,delayed release(DR/EC) See Rx Instructions .ROUTE .COMPLEX Qty: 90 1RF Dose Instruction: TAKE 1 CAPSULE BY MOUTH DAILY Rx Instructions: TAKE 1 CAPSULE BY MOUTH DAILY Jardiance 10 mg tablet 10 mg PO DAILY Qty: 90 1RF carvedilol 3.125 mg tablet See Rx Instructions .ROUTE .COMPLEX Qty: 180 3RF Dose Instruction: TAKE 1 TABLET BY MOUTH TWICE DAILY Rx Instructions: TAKE 1 TABLET BY MOUTH TWICE DAILY lisinopril 5 mg tablet 5 mg PO DAILY Qty: 90 3RF melatonin 10 mg Tablet 10 mg PO BEDTIME PRN (Reason: Sleep) carvedilol 3.125 mg Tablet 3.125 mg PO BID Qty: 60 0RF aspirin [Adult Aspirin Regimen] 81 mg tablet,delayed release (DR/EC) 81 mg PO BEDTIME@2100 Qty: 60 4RF Unisom (doxylamine) 25 mg Tablet 25 mg PO BEDTIME Discharge Orders: Discharge ED (Routine); Ordered 10/18/23 Ordered By: Saba Lira Referrals: Renate Trevizo DO [Primary Care Provider] - 4-7 days Discharge Diet: Usual diet Discharge Activity: Resume usual activity Patient Instructions: Opioid Safety, Pain Management Activity Restrictions/Additional Instructions: Thank you for choosing [facility] for your healthcare needs today. Please realize this is an emergency room and that we are providing you with a medical screening exam and this may not be complete and all inclusive of all the testing and or work up that you may need to determine your ailment or severity of your illness. You have been screened and evaluated and felt safe for discharge. Health conditions do change or evolve sometimes and as such it is important that you follow up with your Primary Doctor to be re checked, 3-5 days is a general good time frame for follow up. You are always welcome to return to the ED for re assessment if your symptoms are worsening or you have new concerns Coding Level of Care Code ED Cargo Operations Agent for Genesis Serra
[2023-10-18 17:30] VITALS: BP 132/85; PULSE 60; RESP 16; O2SAT 97
--- NOTE | 2023-10-18 17:30 | PC.NURSE ---
pt on bedside group teacher
[2023-10-18 17:33] LABS: Alanine Aminotransferase 21 U/L (0-41); Albumin Level 3.9 g/dL (3.5-5.2); Alkaline Phosphatase 81 U/L (40-130); Anion Gap 11.7 (5-19); Aspartate Amino Transferase 15 U/L (0-40); Blood Urea Nitrogen 18 mg/dL (8-23); C Reactive Protein 3.1 mg/L (0.0-4.9); Calcium 8.4 mg/dL (8.5-10.5); Carbon Dioxide 23 mmol/L (22-29); Chloride 108 mmol/L (98-107); Creatinine Clr Calc Pharmacy 89.3045; Glucose 136 mg/dL (65-115); NT Pro B Type Natriuretic Pept 293 pg/mL (0-450); Osmolality Calculated 292 mOsm/kg (285-295); Potassium 3.7 mmol/L (3.5-5.1); Sodium 139 mmol/L (136-145); Total Bilirubin 0.3 mg/dL (0.15-1.2); Total Protein 6.9 g/dL (6.6-8.7)
--- NOTE | 2023-10-18 17:48 | ECG_ITS ---
Test Date: 2023-10-18 Pat Name: Jaskaran Brown Department: Room: Gender: Male Office Messenger: : 1945 Requested By: Saba Rivera Order Number: [id number] Lauren MD: Cody Pierce M.D. Measurements Intervals [place] Rate: 60 P: 109 LA: 169 QRS: -86 QRSD: 151 T: 97 QT: 452 QTc: 454 Interpretive Statements ELECTRONIC ATRIAL PACEMAKER ELECTRONIC VENTRICULAR PACEMAKER ABNORMAL RHYTHM ECG Compared to ECG 10/18/2023 15:39:47 No significant changes Electronically Signed On 10-18-2023 21:16:12 CDT by Cody Pierce M.D. [email or web address]
[2023-10-18 19:11] LABS: Troponin 5 2HR 14.94 ng/L (0-15); Troponin 5 2HR Delta 0.94 ABS# (0-10)
[2023-10-18 19:30] VITALS: BP 144/84; PULSE 62; RESP 16; O2SAT 97
== END 2023-10-18 19:52 | disposition home or self-care (01) ==
PROVIDERS: Emergency Provider Emergency Medicine; PCP Family Medicine
DX: R07.89 Other chest pain (principal); R42 Dizziness and giddiness; Z79.82 Long term (current) use of aspirin; I25.5 Ischemic cardiomyopathy; I50.9 Heart failure, unspecified; E11.9 Type 2 diabetes mellitus without complications; I25.10 Atherosclerotic heart disease of native coronary artery without angina pectoris; I25.2 Old myocardial infarction; Z98.61 Coronary angioplasty status
CPT/HCPCS: 36415; 71045; 80053; 83880; 84484; 85025; 86140; 93005; 99285

== ENCOUNTER → 2023-11-11 11:55 | Outpatient (BNVA) | payer MEDICARE, OTHER, SELFPAY | PROVIDERS: PCP Family Medicine Adult Medicine; Visit Provider Internal Medicine | DX: I25.10 Atherosclerotic heart disease of native coronary artery without angina pectoris (principal); Z98.61 Coronary angioplasty status; I25.2 Old myocardial infarction | CPT/HCPCS: 99213 ==

== ENCOUNTER 2024-04-19 09:44 | Outpatient (CLI) | payer MEDICARE, OTHER, SELFPAY ==
--- NOTE | 2024-04-19 10:00 | FL_ITS ---
WS: [id number] Gastrografin swallow and esophagram, 04/19/2024 Clinical Data: Food sticks in his throat, medial worse than other solids. Comparison: None. Fluoroscopy time: 1min [id number] # of spot films: 8 Findings: The patient swallowed the gastrografin and it flowed through the hypopharynx without hesitation. No s tricture, mass, polyp or erosion was seen. No aspiration or penetration occurred. There is minimal im pression on the posterior hypopharynx by anterior osteoarthritic spurring at C5-C6. The gastrografin entered the esophagus and there was normal motility throughout. No reflux, strictur e, polyp, mass, erosion or ulcer was noted. There was a small sliding hiatal hernia. The Gastrografin entered the stomach normally. Pacemaker wires were visible. FL/FL barium swallow gastro [id number] Impression: 1. 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 2. Small sliding hiatal hernia without significant reflux.
== END 2024-04-19 09:45 | disposition home or self-care (01) ==
LOC: RAD 09:48
PROVIDERS: PCP Family Medicine; Visit Provider Family Medicine
DX: R13.10 Dysphagia, unspecified (principal); K44.9 Diaphragmatic hernia without obstruction or gangrene
CPT/HCPCS: 74220

== ENCOUNTER → 2024-06-09 10:33 | Outpatient (BNVA) | payer MEDICARE, OTHER, SELFPAY | PROVIDERS: PCP Family Medicine; Visit Provider Internal Medicine Cardiovascular Disease | DX: Z45.02 Encounter for adjustment and management of automatic implantable cardiac defibrillator (principal) | CPT/HCPCS: 93296 ==

== ENCOUNTER → 2024-06-16 10:38 | Outpatient (BNVA) | payer MEDICARE, OTHER, SELFPAY | PROVIDERS: PCP Family Medicine; Visit Provider Internal Medicine | DX: J30.2 Other seasonal allergic rhinitis (principal); I25.118 Atherosclerotic heart disease of native coronary artery with other forms of angina pectoris; Z98.61 Coronary angioplasty status; I25.2 Old myocardial infarction; Z95.810 Presence of automatic (implantable) cardiac defibrillator | CPT/HCPCS: 99213 ==

== ENCOUNTER → 2024-06-28 08:47 | Outpatient (BNVA) | payer MEDICARE, OTHER, SELFPAY | PROVIDERS: PCP Family Medicine; Visit Provider Family Medicine | DX: R10.32 Left lower quadrant pain (principal); E11.9 Type 2 diabetes mellitus without complications | CPT/HCPCS: 80053; 81000; 83036; 87086 ==

== ENCOUNTER → 2024-12-15 12:19 | Outpatient (BNVA) | payer MEDICARE, OTHER, SELFPAY | PROVIDERS: PCP Family Medicine; Visit Provider Internal Medicine | DX: I25.10 Atherosclerotic heart disease of native coronary artery without angina pectoris (principal); Z98.61 Coronary angioplasty status; Z95.810 Presence of automatic (implantable) cardiac defibrillator; I25.2 Old myocardial infarction | CPT/HCPCS: 99213 ==

== ENCOUNTER → 2024-12-20 10:04 | Outpatient (BNVA) | payer MEDICARE, OTHER, SELFPAY | PROVIDERS: PCP Family Medicine; Visit Provider Family Medicine | DX: E11.9 Type 2 diabetes mellitus without complications (principal) | CPT/HCPCS: 83036 ==

== ENCOUNTER → 2024-12-21 09:52 | Outpatient (BNVA) | payer MEDICARE, OTHER, SELFPAY | PROVIDERS: PCP Family Medicine; Visit Provider Internal Medicine Cardiovascular Disease | DX: Z53.9 Procedure and treatment not carried out, unspecified reason (principal) | CPT/HCPCS: 93296 ==

== ENCOUNTER → 2025-03-22 10:49 | Outpatient (BNVA) | payer MEDICARE, OTHER, SELFPAY | PROVIDERS: PCP Family Medicine; Visit Provider Internal Medicine | DX: Z45.02 Encounter for adjustment and management of automatic implantable cardiac defibrillator (principal) | CPT/HCPCS: 93296 ==